=== PATIENT | female | born 1935 | race Two or more races ===

== ENCOUNTER 2016-05-14 07:02 | Observation (INO) | payer BC ==
--- NOTE | 2016-05-14 07:23 | PDOC ---
History of Present Illness - General Chief Complaint: Respiratory Stated Complaint: DIFFICULTY BREATHING Time Seen by Provider: 05/14/16 07:23 History Source: Patient - History of Present Illness Initial Comments: 05/14/16 07:47 80 year old female presented to the ED accompanied by and daughter, with the chief complaints of "trouble breathing-can't take deep breaths" x 3days. Patient mentions it started suddenly, progressively getting worse, difficulty in breathing associated with chest pain 8/10 in intensity, pressure type, worsens with deep inspiration, has back pain as well. Has palpitations on/ off. Complaints of frequent burping+. Denies fever chills, rigors, sweating, cough, abdominal pain, nausea or vomiting. Has h/o constipation, moved her bowel yesterday. Bladder habit normal. Sleep disturbed. Appetite normal. Past Medical Hx: Hypertension, Hypothyroidism, Anxiety Allergies: NKDA Past Surgical Hx: Diagnostic lap with EVA for SBO done in December, Hospitalization: for SBO Social Hx: Lives with (has alzheimers) Never smoked, no alcohol intake, no use of illicit drug use. PCP: Dr. Umaña Past History - Past Medical History Allergies/Adverse Reactions: Allergies Allergy/AdvReac Type Severity Reaction Status Date / Time No Known Allergies Allergy Verified 05/14/16 07:19 Home Medications: Ambulatory Orders Levothyroxine [Synthroid -] 112 mcg PO DAILY 09/12/13 Cholecalciferol (Vitamin D3) [Vitamin D3] 3,000 unit PO DAILY 01/07/16 Escitalopram Oxalate [Lexapro -] 10 mg PO DAILY #0 01/15/16 Losartan Potassium [Cozaar -] 25 mg PO DAILY #0 01/15/16 GI Disorders: Yes (sbo) HTN: Yes Psychiatric Problems: Yes Seizures: Yes Thyroid Disease: Yes (hypo) - Surgical History Abdominal Surgery: Yes (resection s/p sbo) - Immunization History Immunization Up to Date: Yes - Psycho/Social/Smoking Cessation Hx Anxiety: Yes Suicidal Ideation: No Smoking History: Former smoker Have you smoked in the past 12 months: No Information on smoking cessation initiated: No Hx Alcohol Use: No Drug/Substance Use Hx: No Substance Use Type: None *Physical Exam - Vital Signs Last Vital Signs Temp Pulse Resp BP Pulse Ox 97.7 F 72 20 138/93 100 05/14/16 07:20 05/14/16 07:20 05/14/16 07:20 05/14/16 07:20 05/14/16 07:20 05/14/16 08:34 PE: GENERAL: Awake, alert, and fully oriented, in no acute distress HEAD: No signs of trauma EYES: PERRLA, EOMI, sclera anicteric, conjunctiva clear ENT: Auricles normal inspection, hearing grossly normal, nares patent, oropharynx clear without exudates. Moist mucosa NECK: Normal ROM, supple, no lymphadenopathy, JVD, or masses LUNGS: Breath sounds equal, clear to auscultation bilaterally. No wheezes, and no crackles.. HEART: Regular rate and rhythm, normal S1 and S2, no murmurs, rubs or gallops ABDOMEN: Surgical scar gage, Soft, nontender, normoactive bowel sounds. No guarding, no rebound. No masses EXTREMITIES: Normal range of motion, no edema. No clubbing or cyanosis. No erythema, or tenderness NEUROLOGICAL: Cranial nerves II through XII grossly intact. Normal speech, normal gait SKIN: Warm, Dry, normal turgor, no rashes or lesions noted. Heart Score/ECG Review - History History: Moderately suspicious - Electrocardiogram EKG: Non specific repolarization disturbance - Age Age: >/= 65 - Risk Factors Risk Factors Heart Score: Yes Hx Hypertension Based on the list above the patient has:: 1-2 risk factors - Troponin Troponin: </= normal limit - Score Heart Score - Total: 5 ED Treatment Course - LABORATORY CBC & Chemistry Diagram: 05/14/16 08:00 05/14/16 08:00 Medical Decision Making - Medical Decision Making 05/14/16 08:41 80 year old female with significant past medical hx of Hypertension, Hypothyroidism, Anxiety, SBO s/p Lap with EVA comes in with difficulty in breathing and atypical chest pain. Assessment/Plan # Difficulty in breathing/Atypical chest pain Differential diagnosis: Anxiety most likely Less likely ACS however to r/o ordered cardiac enzymes Less likely Pneumonia-no fever, cough or LRTI like symptoms Wells Score-0 PE less likely, however to r/o ordered D-dimer HEART Score-5 Ordered CBC, CMP, UA, Troponins, D-dimer EKG showed T wave abnormality in Anterior leads and lateral leads as compared to old EKG Ordered Echo Aspirin 325mg stat Nitroglycerin patch 05/14/16 09:13 D-dimer negative Renal function normal, CTA ordered to r/o PE and any other acute pathology 05/14/16 11:40 CTA-negative for PE Echo done, report pending. Discussed the case with Dr. Sommer. Spoke with Dr. Akhtar and he accepted the patient to be placed on observation. 05/14/2016 11:45 Atypical chest pain -r/o ACS Patient reassessed. Now comfortably resting, hemodyanmically stable. CTA-No acute pathology. Since patient has T wave abnormalities in Anterior lead and lateral leads pre/post Nitro, will admit the patient on obs in Telemetry with continuous cardiac monitoring. Illness, Investigation and Plan of care explained to the patient. She verbalized understanding. Case seen and discussed with Dr. Ward. *DC/Admit/Observation/Transfer Diagnosis at time of Disposition: EKG abnormalities Chest pain Qualifiers: Chest pain type: unspecified Qualified Code(s): R07.9 - Chest pain, unspecified - Discharge Dispostion Admit: Yes
[2016-05-14 07:28] VITALS: BMI 25.7
[2016-05-14] MEDS ORDERED: ALPRAZolam 0.25 MG TABLET PO ONE (07:49)
[2016-05-14] MEDS ORDERED: ASPIRIN 325 MG ENTERIC COATED TABLET (FP) PO ONE (07:58)
[2016-05-14] MEDS ORDERED: NITROGLYCERIN 2% OINTMENT - 1GM PACKET TD ONE (07:59)
[2016-05-14] MEDS ORDERED: ASPIRIN 325 MG TABLET ONE (08:06)
[2016-05-14 08:44] LABS: BASOPHIL 0.2 % (0-2.0); EOSINOPHIL 0.7 % (0-4.5); MCH 33.2 pg (25.7-33.7); MCHC 34.7 g/dl (32.0-36.0); MEAN CELL VOLUME 95.6 fl (80-96); MEAN PLT VOLUME 8.8 fl (7.5-11.1); NEUTROPHILS 77.8 % (42.8-82.8); PLATELET COUNT 176 K/MM3 (134-434); RDW 12.5 % (11.6-15.6); WHITE BLOOD COUNT 6.3 K/mm3 (4.0-10.0)
[2016-05-14 08:49] LABS: ALBUMIN 3.7 g/dl (3.4-5.0); ALK PHOS 57 U/L (45-117); ANION GAP 10 (8-16); CALCIUM 8.9 mg/dL (8.5-10.1); CO2 28 mmol/L (21-32); CREATININE 0.8 mg/dL (0.55-1.02); GLUCOSE,RANDOM 103 mg/dL (74-106); MAGNESIUM 1.9 mg/dL (1.8-2.4); SGOT/AST 20 U/L (15-37); SGPT/ALT 14 U/L (12-78); TOT PROT 6.6 g/dl (6.4-8.2)
[2016-05-14 08:51] LABS: INR 1.05 (0.82-1.09); PROTHROMBIN TIME (PATIENT) 11.6 SEC (9.98-11.88); TROPONIN I < 0.02 ng/ml (0.00-0.05)
--- NOTE | 2016-05-14 09:57 | PDOC ---
Attending Attestation - Resident Resident Name: Yamilka Bradshaw - ED Attending Attestation I have performed the following: I have examined & evaluated the patient, The case was reviewed & discussed with the resident, I agree w/resident's findings & plan, Exceptions are as noted - HPI HPI: 05/14/16 09:52 80-year-old female with history of hypertension, hypothyroidism presents with dyspnea and pleuritic chest and back pain for the past several days. - Physicial Exam PE: 05/14/16 09:53 Patient is awake and alert, well-appearing, hemodynamically stable. No JVD; Lungs are clear; heart: RRR; abdomen: Soft, nontender, nondistended; distal pulses are +2 bilaterally; - Medical Decision Making 05/14/16 09:56 Patient 80-year-old female with history hypertension and hypothyroidism who presents with dyspnea and atypical chest discomfort with EKG changes. Differential diagnoses includes ACS versus PE versus pleurisy. We'll obtain CBC/ CMP/cardiac profile. We'll obtain chest x-ray and CTA of chest to rule out PE. Will consider 2-D echo. We'll administer aspirin and nitroglycerin. Will consult cardiology. Likely admission. 05/14/16 11:53 Patient reassessed. Patient is resting comfortably, complaining of minimal chest and upper back pain. Vital signs are noted to be stable. First set of cardiac enzymes is within normal limit. CT of chest with IV contrast reveals no evidence of pulmonary embolism or dissection at this time. 2-D echocardiogram reveals mild pulmonary hypertension no significant LV or RV dysfunction. Case discussed with Dr. north of cardiology. Will place in obs for chest pain rule out.
--- NOTE | 2016-05-14 10:04 | EKG ---
Test Reason : Blood Pressure : / mmHG Vent. Rate : 063 BPM Atrial Rate : 063 BPM P-R Int : 136 ms QRS Dur : 080 ms QT Int : 430 ms P-R-T Axes : 048 018 014 degrees QTc Int : 440 ms NORMAL SINUS RHYTHM T WAVE ABNORMALITY, CONSIDER LATERAL ISCHEMIA ABNORMAL ECG WHEN COMPARED WITH ECG OF 06-JAN-2016 22:32, ST NO LONGER DEPRESSED IN ANTERIOR LEADS INVERTED T WAVES HAVE REPLACED NONSPECIFIC T WAVE ABNORMALITY IN LATERAL LEADS Confirmed by BRIAN HEWITT MD ([id number]) on 05/14/2016 10:04:30 AM Referred By: Confirmed By:BRIAN HEWITT MD
[2016-05-14] MEDS ORDERED: ONDANSETRON 4 MG/2 ML VIAL IVPB PRN (12:58)
--- NOTE | 2016-05-14 13:01 | HP ---
Admitting History and Physical - Primary Care Physician PCP: Reyes Villa - Admission Chief Complaint: I am short of breath History of Present Illness: Ms Patterson is a very pleasant 80 year old female who comes in with chest/back pain and shortness of breath. She says she often has to pick her brother up at home, and when she has to do this she gets anxious and upset. The past few times she picked him up she noted "pressure" in her chest and back and shortness of breath. She says that the shortness of breath happens when she takes a deep breath. She inhales and feels pain in her chest and back. Because of the pain she gets short of breath. She does not note pain on movement or palpation of areas. She denies fevers, chills, sick contact, coughing, abdominal pain, nausea, vomiting, diarrhea, constipation, difficulty or pain on urination, or swelling. Currently she is doing well. 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 Cardiovascular: Yes: HTN Endocrine: Yes: Hypothyroidism - Past Surgical History Past Surgical History: Yes: Cataract Removal, Hysterectomy Additional Past Surgical History: Lysis of adhesions - Smoking History Smoking history: Former smoker Have you smoked in the past 12 months: No - Alcohol/Substance Use Hx Alcohol Use: No History of Substance Use: reports: None - Social History Usual Living Arrangement: Yes: Other (with brother) ADL: Independent History of Recent Travel: No Home Medications - Allergies Allergies/Adverse Reactions: Allergies Allergy/AdvReac Type Severity Reaction Status Date / Time No Known Allergies Allergy Verified 05/14/16 07:19 - Home Medications Home Medications: Ambulatory Orders Levothyroxine [Synthroid -] 112 mcg PO DAILY 09/12/13 Cholecalciferol (Vitamin D3) [Vitamin D3] 3,000 unit PO DAILY 01/07/16 Escitalopram Oxalate [Lexapro -] 10 mg PO DAILY #0 01/15/16 Losartan Potassium [Cozaar -] 25 mg PO DAILY #0 01/15/16 Family Disease History - Family Disease History Family Disease History: Other: Brother (dementia) Review of Systems Findings/Remarks: Full review of systems obtained, as per HPI and otherwise negative Physical Examination Vital Signs: Vital Signs Temperature 98.7 F 05/14/16 11:41 Pulse Rate 66 05/14/16 11:41 Respiratory Rate 05/14/16 11:41 Blood Pressure 112/57 05/14/16 11:41 O2 Sat by Pulse Oximetry (%) 95 05/14/16 12:03 Constitutional: Yes: Well Nourished, No Distress, Calm Eyes: Yes: Conjunctiva Clear, EOM Intact HENT: Yes: Atraumatic, Normocephalic Cardiovascular: Yes: Regular Rate and Rhythm. No: Gallop, Murmur, Rub Respiratory: Yes: Regular, CTA Bilaterally. No: Rales, Rhonchi, Wheezes Gastrointestinal: Yes: Normal Bowel Sounds, Soft. No: Distention, Tenderness Musculoskeletal: Yes: Muscle Pain (palpation of chest and back) Extremities: Yes: WNL Edema: No Labs: Laboratory Results - last 24 hr 05/14/16 05/14/16 05/14/16 07:59 08:00 08:00 WBC 6.3 D RBC 3.82 Hgb 12.7 Hct 36.5 MCV 95.6 MCHC 34.7 RDW 12.5 Plt Count 176 D MPV 8.8 Neutrophils % 77.8 D Lymphocytes % 10.1 D Monocytes % 11.2 H Eosinophils % 0.7 Basophils % 0.2 INR 1.05 D-Dimer 199 Sodium Potassium Chloride Carbon Dioxide Anion Gap BUN Creatinine Creat Clearance w eGFR Random Glucose Calcium Magnesium Total Bilirubin AST ALT Alkaline Phosphatase Creatine Kinase Troponin I Total Protein Albumin 05/14/16 08:00 WBC RBC Hgb Hct MCV MCHC RDW Plt Count MPV Neutrophils % Lymphocytes % Monocytes % Eosinophils % Basophils % INR D-Dimer Sodium 138 Potassium 3.7 Chloride 100 Carbon Dioxide 28 Anion Gap 10 BUN 9 D Creatinine 0.8 Creat Clearance w eGFR > 60 Random Glucose 103 Calcium 8.9 Magnesium 1.9 Total Bilirubin 1.0 D AST 20 ALT 14 Alkaline Phosphatase 57 Creatine Kinase 114 Troponin I < 0.02 Total Protein 6.6 Albumin 3.7 Imaging - Results Chest X-ray: Report Reviewed, Image Reviewed Cat Scan: Report Reviewed EKG: Report Reviewed, Image Reviewed Problem List - Problems (1) Chest pain Assessment/Plan: -patient with chest and back pain, reproducible -not true shortness of breath, in response to pain on deep breathing -CT scan PE protocol done and negative -ECHO reviewed -EKG reviewed, changes noted in V5/V6 -case d/w cardiology -admit to telemetry under observation -cardiac enzymes x3 -low suspicion this pain is cardiac in nature -defer to cardiology need for stress test -tylenol for pain control Code(s): R07.9 - CHEST PAIN, UNSPECIFIED Qualifiers: Chest pain type: unspecified Qualified Code(s): R07.9 - Chest pain, unspecified (2) HTN (hypertension) Assessment/Plan: -continue cozaar Code(s): I10 - ESSENTIAL (PRIMARY) HYPERTENSION (3) Hypothyroid Assessment/Plan: -continue synthroid Code(s): E03.9 - HYPOTHYROIDISM, UNSPECIFIED Qualifiers: 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
--- NOTE | 2016-05-14 15:36 | CON.CARD ---
Cardiology Consult (text) - Consultation Consultation Note: CC: cp 80 year old with h/o seizure, HTN, hypothyroidism, SBO s/p surgery who presents with CP. Good functional capacity, no limitation to ambulation. Can walk up flight of stairs without difficulty States recent onset of severe chest pain radiating to her bilateral shoulders. Pain is localized around lateral chest wall (not central or sub sternal). Worse with inspiration or palpation. SOB only in relation to inability to take deep breaths due to pain. She denies orthopnea, pnd, le edema, sob, palps, dizziness, bleeding, claudication or transient neurologic symptoms + anxiety s/p ASA and nitropaste. Has not yet received home losartan dose. She denies fevers, chills, sweats, n/v/d, cough, rash, visual disturbances Past Medical History, per hpi Past Surgical History: cataract surgery Social hx; Former smoker, no etoh or illicits fam hx: no premature cad ros: per hpi Ambulatory Orders Levothyroxine [Synthroid -] 112 mcg PO DAILY 09/12/13 Cholecalciferol (Vitamin D3) [Vitamin D3] 3,000 unit PO DAILY 01/07/16 Escitalopram Oxalate [Lexapro -] 0 mg PO DAILY 01/07/16 Losartan Potassium [Cozaar -] 0 mg PO DAILY 01/07/16 Current Medications Benzocaine/Butamben/Tetracaine HCl (Exactacain Crum -) 1 spray TP TID PRN PRN Reason: SORE THROAT Heparin Sodium (Porcine) (Heparin -) 5,000 unit SQ BID EUGENE Last Admin: 01/08/16 09:23 Dose: 5,000 unit Hydralazine HCl (Apresoline Injection -) 10 mg IM Q8H PRN PRN Reason: HYPERTENSION Hydromorphone HCl (Dilaudid Injection -) 1 mg IVPUSH Q4H PRN PRN Reason: PAIN Last Admin: 01/08/16 08:28 Dose: 1 mg Dextrose/Sodium Chloride (D5-1/2ns+40 Meq Kcl -) 1,000 mls @ 83 mls/hr IV ASDIR EUGENE Last Admin: 01/08/16 08:34 Dose: 83 mls/hr Ondansetron HCl (Zofran Injection) 4 mg IVPB Q6H PRN PRN Reason: NAUSEA Last Admin: 01/07/16 17:24 Dose: 4 mg Vital Signs - 24 hr 01/07/16 01/07/16 01/07/16 15:00 18:39 21:00 Temperature 98.0 F 97.5 F L Pulse Rate 85 66 Respiratory 18 21 21 Rate Blood Pressure 140/62 170/77 O2 Sat by Pulse 100 Oximetry (%) 01/08/16 01/08/16 01/08/16 05:53 09:00 13:50 Temperature 98.0 F 98.0 F 97.8 F Pulse Rate 67 86 61 Respiratory 20 20 17 Rate Blood Pressure 156/85 145/80 O2 Sat by Pulse 100 Oximetry (%) Intake & Output 01/06/16 01/07/16 01/08/16 01/09/16 07:59 07:59 07:59 07:59 Intake Total 1166 0 Output Total 200 Balance 966 0 Weight 140 lb NAD, calm JVD flat, neck supple ctab, nl effort RRR nl s1, s2 no m/r/g pain reproducible to palpation of lateral chest wall bilaterally. + bs soft nt nd ext without e/c/c + dp/pt aaox3 no jaundice, diaphoresis CBC, BMP 05/14/16 08:00 05/14/16 08:00 Laboratory Tests 05/14/16 08:00 Troponin I < 0.02 Albumin 3.7 EKG: NSR, TWI in inferolat leads. Although T wave abnormalities are more prominent in comparison to prior EKG. They were present on EKG's in the past including office EKG's. Variability likely related to lead placement. tele: nsr echo: nl lv/rv. 1+ AR/MR/TR. RVSP 30-40. CTA: no pe, nl aorta. hilar lymphoid hyperplasia, mild bibasilar atelectasis, minimal pleural thickening echo 2011: nl lv/rv/valves stress MPI 2011: 6.4 METS, non-diagnostic EKG changes. Nl perfusion, NL EF. 80 year old with h/o seizure, HTN, hypothyroidism, SBO s/p surgery who presents with CP. CP - atypical for cardiac etilology, more consistent with msk etiology. EKG similar to priors (see above discussion), trop neg x 1. con't LATASHA - pain mgm't per pmd. - mgm't of HTN. - echo unremarkable. - can repeat tsh. - If troponins remain negative, can have further evaluation for need for stress test as outpatient. HTN - resume losartan. monitor for need for uptitration of anti-hypertensive regimen. anxiety - per pmd.
[2016-05-14] MEDS: LOSARTAN POTASSIUM 25 MG TABLET PO SCH (16:32)
[2016-05-14 18:32] LABS: TROPONIN I < 0.02 ng/ml (0.00-0.05)
[2016-05-14] MEDS: ACETAMINOPHEN 325 MG TABLET (FP) PO PRN ×2 (18:43→22:20)
[2016-05-15] MEDS ORDERED: LEVOTHYROXINE NA 112 MCG TABLET (FP) PO SCH (07:00)
[2016-05-15 08:15] LABS: BASOPHIL 0.2 % (0-2.0); EOSINOPHIL 0.4 % (0-4.5); MCH 33.2 pg (25.7-33.7); MCHC 34.8 g/dl (32.0-36.0); MEAN CELL VOLUME 95.2 fl (80-96); MEAN PLT VOLUME 8.9 fl (7.5-11.1); PLATELET COUNT 162 K/MM3 (134-434); RDW 12.9 % (11.6-15.6); WHITE BLOOD COUNT 7.8 K/mm3 (4.0-10.0)
[2016-05-15 08:37] LABS: CALCIUM 8.7 mg/dL (8.5-10.1); CREATININE 0.7 mg/dL (0.55-1.02); PHOSPHOROUS 3.1 mg/dL (2.5-4.9)
[2016-05-15 08:49] LABS: THYROID STIMULATING HORMONE 5.72 uIU/ml (0.358-3.74); TROPONIN I < 0.02 ng/ml (0.00-0.05)
[2016-05-15 09:07] VITALS: BP 127/61; PULSE 69; TEMP 98.3
[2016-05-15] MEDS ORDERED: ESCITALOPRAM OXALATE 10 MG TABLET (FP) PO SCH (10:00)
[2016-05-15] MEDS ORDERED: CHOLECALCIFEROL (VITAMIN D3) 1,000 UNIT TABLET (FP) PO SCH (10:00)
[2016-05-15] MEDS: LOSARTAN POTASSIUM 25 MG TABLET PO SCH (10:31)
--- NOTE | 2016-05-15 11:09 | PN ---
Progress Note (short form) - Note Progress Note: s: no sob palps dizzy; still with same msk chest pain o: Vital Signs Period Temp Pulse Resp BP Sys/Swanson Pulse Ox Last 24 Hr 97.6 F-98.7 F 62-81 16-20 97-149/50-95 95-97 NAD, calm JVD flat, neck supple ctab, nl effort RRR nl s1, s2 no m/r/g pain reproducible to palpation of lateral chest wall bilaterally. + bs soft nt nd ext without e/c/c aaox3 no jaundice, diaphoresis Current Medications Generic Name Dose Route Start Last Admin Trade Name Freq PRN Reason Stop Dose Admin Acetaminophen 650 mg 05/14/16 12:58 05/14/16 22:20 Tylenol - PO 650 mg Q4H PRN Administration FEVER OR PAIN Cholecalciferol 3,000 unit 05/15/16 10:00 05/15/16 10:31 Vitamin D3 - PO 3,000 unit DAILY EUGENE Administration Escitalopram Oxalate 10 mg 05/15/16 10:00 05/15/16 10:31 Lexapro - PO 10 mg DAILY EUGENE Administration Levothyroxine Sodium 112 mcg 05/15/16 07:00 05/15/16 06:32 Synthroid - PO 112 mcg DAILY@0700 EUGENE Administration Losartan Potassium 25 mg 05/15/16 10:00 05/15/16 10:31 Cozaar - PO 25 mg DAILY EUGENE Administration CBC, BMP 05/15/16 05:45 05/15/16 05:45 EKG: NSR, TWI in inferolat leads. Although T wave abnormalities are more prominent in comparison to prior EKG. They were present on EKG's in the past including office EKG's. Variability likely related to lead placement. tele: sr, artifact echo: nl lv/rv. 1+ AR/MR/TR. RVSP 30-40. CTA: no pe, nl aorta. hilar lymphoid hyperplasia, mild bibasilar atelectasis, minimal pleural thickening echo 2011: nl lv/rv/valves stress MPI 2011: 6.4 METS, non-diagnostic EKG changes. Nl perfusion, NL EF. a/p: 80 year old with h/o seizure, HTN, hypothyroidism, SBO s/p surgery who presents with CP. CP - atypical for cardiac etilology, more consistent with msk etiology. EKG similar to priors (see above discussion), trop neg x 2 - pain mgm't per pmd. - echo unremarkable. HTN - cont current meds anxiety - per pmd cardiac root stable for dc
[2016-05-15] MEDS ORDERED: IBUPROFEN 400 MG TABLET (FP) PO ONE (11:22)
--- NOTE | 2016-05-15 11:42 | DS ---
Physical Examination Vital Signs: Vital Signs Temperature 98.3 F 05/15/16 09:06 Pulse Rate 69 05/15/16 09:06 Respiratory Rate 20 05/15/16 09:06 Blood Pressure 127/61 05/15/16 09:06 O2 Sat by Pulse Oximetry (%) 97 05/14/16 20:48 Constitutional: Yes: Well Nourished, Mild Distress (due to neck/ rib pain) Neck: Yes: Supple, Trachea Midline Cardiovascular: Yes: Regular Rate and Rhythm, S1, S2. No: Murmur Respiratory: Yes: Regular, CTA Bilaterally Gastrointestinal: Yes: Normal Bowel Sounds, Soft. No: Distention, Tenderness Edema: No Labs: CBC, BMP 05/15/16 05:45 05/15/16 05:45 Discharge Summary Reason For Visit: CHEST PAIN Current Active Problems Chest pain (Acute) EKG abnormalities (Acute) Hospital Course: 80 yo female presented with chest pain. Pain found to be pleuritic. CTA chest done, negative for PE. CE neg x 3, seen by cardio and pain felt to be musculoskeletal (has been lifting her at home, who suffers from dementia ). Has been taking tylenol for pain, with minimal improvement. No fevers noted. Will be discharged on Aleve for 4 days and advised to use warm compresses for pain. Condition: Fair - Instructions Referrals: Reyes Villa MD [Primary Care Provider] - Disposition: HOME - Home Medications Comprehensive Discharge Medication List: Ambulatory Orders Levothyroxine [Synthroid -] 112 mcg PO DAILY 09/12/13 Cholecalciferol (Vitamin D3) [Vitamin D3] 3,000 unit PO DAILY 01/07/16 Escitalopram Oxalate [Lexapro -] 10 mg PO DAILY #0 01/15/16 Losartan Potassium [Cozaar -] 25 mg PO DAILY #0 01/15/16 Acetaminophen [Tylenol .Regular Strength -] 650 mg PO Q4H PRN #0 tablet Naproxen Sodium [Aleve] 220 mg PO BID #60 tablet 05/15/16
--- NOTE | 2016-05-15 13:42 | EKG ---
Test Reason : Blood Pressure : / mmHG Vent. Rate : 060 BPM Atrial Rate : 060 BPM P-R Int : 136 ms QRS Dur : 084 ms QT Int : 432 ms P-R-T Axes : 046 016 007 degrees QTc Int : 432 ms NORMAL SINUS RHYTHM T WAVE ABNORMALITY, CONSIDER LATERAL ISCHEMIA ABNORMAL ECG WHEN COMPARED WITH ECG OF 14-MAY-2016 07:45, NO SIGNIFICANT CHANGE WAS FOUND Confirmed by TASIA TYSON MD ([id number]) on 05/15/2016 1:42:21 PM Referred By: Confirmed By:TASIA TYSON MD
== END 2016-05-15 14:49 | disposition home or self-care (01) ==
LOC: JER 07:02 → JERBED 11:56 → J4W 15:09
PROVIDERS: ADMIT Internal Medicine; ATTEND Internal Medicine
DX: R07.89 Other chest pain (principal); I10 Essential (primary) hypertension; E03.9 Hypothyroidism, unspecified; F41.9 Anxiety disorder, unspecified; Z87.891 Personal history of nicotine dependence; F41.8 Other specified anxiety disorders; R56.9 Unspecified convulsions
CPT/HCPCS: 36415; 71010-TC; 71260-TC; 80048; 80053; 82550; 83735; 84100; 84443; 84484; 85025; 85379; 85610; 93005; 93010; 93306-TC; 99285-25; G0378

== ENCOUNTER 2018-11-23 12:39 | Inpatient (IN) | payer BC ==
[2018-11-23 12:54] VITALS: BMI 27.3
[2018-11-23] MEDS ORDERED: PIPERACILLIN/TAZOB 3.375 GM 3.375 GM in DEXTROSE 5%-WATER - 50 ML IVPB ONE (14:14)
--- NOTE | 2018-11-23 14:15 | PDOC ---
Documentation entered by Cheryl Gavin SCRIBE, acting as scribe for Zoë Cade MD. Zoë Cade MD: This documentation has been prepared by the Leslye carter Xhesika, SCRIBE, under my direction and personally reviewed by me in its entirety. I confirm that the documentation accurately reflects all work, treatment, procedures, and medical decision making performed by me. Attending Attestation - Resident Resident Name: Irving Pride - ED Attending Attestation I have performed the following: I have examined & evaluated the patient, The case was reviewed & discussed with the resident, Exceptions are as noted - HPI HPI: 11/23/18 14:10 83 yo F wtih h/o HTN dementia, here s/p fall today. unwitnessed. was found on floor by her grandaughter. pt states she was walking to bathroom and fell on floor. is unsure of exact details precipitating the fall , states she may have hit her head but unsure. was last seen by family night prior. no focal weakness. no cp no sob. pt daughter at bedside states she has an ornary cat and has had mutliple scratches to her right hand. today after fall noticed her hand is red, swelling and erythematous. extremely tender to touch. no f/c redness isfrom hand to elbow. / mid forearm with some streaking. - Physicial Exam PE: 11/23/18 14:12 awake alert lungs clear bilat heart rrr no mrg abd soft nt nd ext wwp. right upper extremity arm/ hand erythematous, warm, pain with rom right index finger. and thumb. decreased wrist flex/ ext secondary to pain. erythema to mid forearm , elbow / shoulder FROM NT 2 + radial ulnar pulses bilat. n/v intact. smal puncate abrasions over dorsum right mcp. some purulence expressed. - Medical Decision Making 11/23/18 14:13 83 yo F s/p unwitness fall/ syncope. possible head trauma, and signs of right hand cellulitis likely from cat scratch, possible underlying abscess. plan iv fliuds, labs cultures lactate, pt will require imaging to r/o underlying fracture. plan vanco zosyn, hand consult will soak hand. imaging. ct head. 08/29/19 17:23 d/w covering dr for Dr ignacio while in surgery, will see pt as a consult in hospital. given abx, soaks, admitted to medicine. Heart Score/ECG Review #1 ECG reviewed & interpreted by me at: 14:50 General ECG Interpretation: Sinus Rhythm, Normal Rate, Normal Intervals, No acute ischemic changes (TWI V4 - V6, I, AVL.) Compared to previous ECG there are: Changes noted (comparison 05/14)
--- NOTE | 2018-11-23 14:16 | PDOC ---
History of Present Illness <Zoë Cade - Last Filed: 11/23/18 16:33> - History of Present Illness Initial Comments: 11/23/18 15:33 83F with pmh of seizure, HTN, hypothyroidism, SBO presents to the ED with painful, swollen red Right red hand since this morning, possibly. She states that she fell in her bathroom this morning, possibly hitting her head in the process. Her right hand and forearm are covered in cat bites and scratches <Irving Pride - Last Filed: 11/23/18 17:21> - General Chief Complaint: Injury Stated Complaint: FALL Time Seen by Provider: 11/23/18 13:15 Past History <Zoë Cade - Last Filed: 11/23/18 16:33> - Past Medical History COPD: No GI Disorders: Yes (sbo) HTN: Yes Psychiatric Problems: Yes Seizures: Yes Thyroid Disease: Yes (hypo) - Surgical History Abdominal Surgery: Yes (resection s/p sbo) - Immunization History Immunization Up to Date: Yes - Suicide/Smoking/Psychosocial Hx Smoking History: Never smoked Have you smoked in the past 12 months: No Hx Alcohol Use: No Drug/Substance Use Hx: No Substance Use Type: None <ShannenIrving - Last Filed: 11/23/18 17:21> - Past Medical History Allergies/Adverse Reactions: Allergies Allergy/AdvReac Type Severity Reaction Status Date / Time No Known Allergies Allergy Verified 11/23/18 12:51 Home Medications: Ambulatory Orders Levothyroxine [Synthroid -] 112 mcg PO DAILY 09/12/13 Cholecalciferol (Vitamin D3) [Vitamin D3] 3,000 unit PO DAILY 01/07/16 Escitalopram Oxalate [Lexapro -] 10 mg PO DAILY #0 01/15/16 Losartan Potassium [Cozaar -] 25 mg PO DAILY #0 01/15/16 Acetaminophen [Tylenol .Regular Strength -] 650 mg PO Q4H PRN #0 tablet Naproxen Sodium [Aleve] 220 mg PO BID #60 tablet 05/15/16 Review of Systems - Review of Systems Able to Perform ROS?: Yes Is the patient limited Ukrainian proficient: No Constitutional: No: Symptoms Reported HEENTM: No: Symptoms Reported Respiratory: No: Symptoms reported Cardiac (ROS): No: Symptoms Reported ABD/GI: No: Symptoms Reported : No: Symptoms Reported Musculoskeletal: Yes: See HPI Integumentary: No: Symptoms Reported All Other Systems: Reviewed and Negative <Irving Pride - Last Filed: 11/23/18 17:21> *Physical Exam - Vital Signs Last Vital Signs Temp Pulse Resp BP Pulse Ox 97.9 F 87 17 125/63 97 11/23/18 12:51 11/23/18 12:51 11/23/18 12:51 11/23/18 12:51 11/23/18 15:43 <BrandtnitoZoë - Last Filed: 11/23/18 16:33> - Vital Signs Last Vital Signs Temp Pulse Resp BP Pulse Ox 97.9 F 87 17 125/63 99 11/23/18 12:51 11/23/18 12:51 11/23/18 12:51 11/23/18 12:51 11/23/18 12:51 - Physical Exam General Appearance: Yes: Nourished, Appropriately Dressed. No: Apparent Distress HEENT: positive: EOMI, IGNACIO Respiratory/Chest: positive: Lungs Clear, Normal Breath Sounds. negative: Chest Tender, Respiratory Distress Cardiovascular: positive: Regular Rhythm, Regular Rate, S1, S2 Gastrointestinal/Abdominal: positive: Normal Bowel Sounds, Flat, Soft. negative : Tender Musculoskeletal: positive: Normal Inspection. negative: CVA Tenderness Extremity: positive: Normal Inspection Integumentary: positive: Other (Right arm and hand hot, erythematous and tender , limited ROM. Right dorsal hand skin is tense. ) Neurologic: positive: Fully Oriented, Alert, Normal Mood/Affect, Normal Response , Motor Strength 5/5 <Irving Pride - Last Filed: 11/23/18 17:21> ED Treatment Course - LABORATORY CBC & Chemistry Diagram: 11/23/18 14:40 11/23/18 14:40 - ADDITIONAL ORDERS Additional order review: Laboratory Results 11/23/18 11/23/18 11/23/18 15:52 14:40 14:40 PT with INR 12.20 INR 1.03 PTT (Actin FS) 26.4 Sodium Potassium Chloride Carbon Dioxide Anion Gap BUN Creatinine Est GFR (CKD-EPI)AfAm Est GFR (CKD-EPI)NonAf Random Glucose Lactic Acid 1.2 Calcium Total Bilirubin AST ALT Alkaline Phosphatase Troponin I Total Protein Albumin Urine Color Yellow Urine Appearance Clear Urine pH 5.5 Ur Specific [place] 1.023 Urine Protein Negative Urine Glucose (UA) Negative Urine Ketones Trace H Urine Blood Negative Urine Nitrite Negative Urine Bilirubin Negative Urine Urobilinogen 0.2 Ur Leukocyte Esterase 1+ H Urine WBC (Auto) 2 Urine RBC (Auto) 3 Urine Casts (Auto) 2 U Epithel Cells (Auto) 4.4 Urine Bacteria (Auto) 15.2 11/23/18 14:40 PT with INR INR PTT (Actin FS) Sodium 138 Potassium 4.0 Chloride 100 Carbon Dioxide 28 Anion Gap 10 BUN 21.1 H Creatinine 1.1 Est GFR (CKD-EPI)AfAm 54.15 Est GFR (CKD-EPI)NonAf 46.72 Random Glucose 122 H Lactic Acid Calcium 9.5 Total Bilirubin 1.0 AST 20 ALT 14 Alkaline Phosphatase 67 Troponin I < 0.02 Total Protein 6.8 Albumin 3.6 Urine Color Urine Appearance Urine pH Ur Specific [place] Urine Protein Urine Glucose (UA) Urine Ketones Urine Blood Urine Nitrite Urine Bilirubin Urine Urobilinogen Ur Leukocyte Esterase Urine WBC (Auto) Urine RBC (Auto) Urine Casts (Auto) U Epithel Cells (Auto) Urine Bacteria (Auto) 11/23/18 14:40 RBC 3.79 MCV 96.6 H MCHC 34.0 RDW 12.7 MPV 9.5 Neutrophils % 90.7 H Lymphocytes % 2.8 L D Monocytes % 6.4 Eosinophils % 0.0 D Basophils % 0.1 - Medications Given in the ED: ED Medications Discontinued Medications Generic Name Dose Route Start Last Admin Trade Name Freq PRN Reason Stop Dose Admin Piperacillin Sod/Tazobactam 50 mls @ 100 mls/hr 11/23/18 14:14 11/23/18 15:00 Sod 3.375 gm/ Dextrose IVPB 11/23/18 14:43 100 mls/hr ONCE ONE Administration Protocol <Zoë Cade - Last Filed: 11/23/18 16:33> - LABORATORY CBC & Chemistry Diagram: 11/23/18 14:40 11/23/18 14:40 - RADIOLOGY Radiology Studies Ordered: Category Date Time Status CERVICAL SPINE CT W/O CONTR [CT] Stat CT Scan 11/23/18 14:[address] WITHOUT CONTRAST [CT] Stat CT Scan 11/23/18 14:01 Ordered FOREARM- RIGHT [RAD] Stat Radiology 11/23/18 14:00 Ordered WRIST W/HAND-RIGHT* [RAD] Stat Radiology 11/23/18 14:01 Ordered <Irving Pride - Last Filed: 11/23/18 17:21> Medical Decision Making - Medical Decision Making 11/23/18 15:55 83 with cat scratch and bites and erythematous skin over the right arm with draining pus from the dorsal puncture wound. Starting antibiotics and xray. Dr. Vega will be consulted for it. 11/23/18 16:53 Admission pending. 11/23/18 17:19 All Xrays of the arm are negative for fractures, + vascular calcifications. Ct head and cervical neck negative for fractures or bleed. Patient admitted to Med/surg. <Irving Pride - Last Filed: 11/23/18 17:21> *DC/Admit/Observation/Transfer - Discharge Dispostion Decision to Admit order: Yes <Zoë Cade - Last Filed: 11/23/18 16:33> <Irving Pride - Last Filed: 11/23/18 17:21> Diagnosis at time of Disposition: Animal bite, Cellulitis of hand, right
[2018-11-23 15:08] LABS: BASO % 0.1 % (0-2.0); HEMATOCRIT 36.6 % (32.4-45.2); HEMOGLOBIN 12.4 GM/dL (10.7-15.3); LYMPH % 2.8 % (8-40); MCH 32.8 pg (25.7-33.7); MEAN CELL VOLUME 96.6 fl (80-96); MEAN PLT VOLUME 9.5 fl (7.5-11.1); MONO % 6.4 % (3.8-10.2); NEUT % 90.7 % (42.8-82.8); PLATELET COUNT 191 K/MM3 (134-434); RBC 3.79 M/mm3 (3.60-5.2); RDW 12.7 % (11.6-15.6); WHITE BLOOD COUNT 20.4 K/mm3 (4.0-10.0)
[2018-11-23 15:22] LABS: INR 1.03 (0.83-1.09); PROTHROMBIN TIME (PATIENT) 12.2 SEC (9.7-13.0)
[2018-11-23 15:25] LABS: ACTIVATED PTT 26.4 SECONDS (25.2-36.5)
--- NOTE | 2018-11-23 15:28 | EKG ---
Test Reason : Blood Pressure : / mmHG Vent. Rate : 074 BPM Atrial Rate : 074 BPM P-R Int : 130 ms QRS Dur : 080 ms QT Int : 398 ms P-R-T Axes : 042 -02 218 degrees QTc Int : 441 ms NORMAL SINUS RHYTHM ABNORMAL ECG WHEN COMPARED WITH ECG OF 14-MAY-2016 11:06, NON-SPECIFIC CHANGE IN ST SEGMENT IN INFERIOR LEADS NON-SPECIFIC CHANGE IN ST SEGMENT IN ANTERIOR LEADS T WAVE INVERSION MORE EVIDENT IN ANTEROLATERAL LEADS Confirmed by ROBERT CORTES MD ([id number]) on 11/23/2018 3:27:40 PM Referred By: Confirmed By:ROBERT CORTES MD
[2018-11-23 15:40] LABS: ALBUMIN 3.6 g/dl (3.4-5.0); ALK PHOS 67 U/L (45-117); ANION GAP 10 MMOL/L (8-16); BLOOD UREA NITROGEN 21.1 mg/dL (7-18); CALCIUM 9.5 mg/dL (8.5-10.1); CHLORIDE 100 mmol/L (98-107); CO2 28 mmol/L (21-32); CREATININE 1.1 mg/dL (0.55-1.3); GLUCOSE,RANDOM 122 mg/dL (74-106); SGOT/AST 20 U/L (15-37); SGPT/ALT 14 U/L (13-61); SODIUM 138 mmol/L (136-145); TOT PROT 6.8 g/dl (6.4-8.2)
[2018-11-23 16:29] LABS: EPI CELLS 4.4 /HPF (0-5/HPF); HYALINE CASTS 2 /lpf (0-8); PH,URINE 5.5 (5.0-8.0); URINE APPEARANCE CLEAR; URINE BACTERIA 15.2 /hpf (NEGATIVE); URINE BILIRUBIN NEGATIVE (NEGATIVE); URINE COLOR YELLOW; URINE GLUCOSE (UA) NEGATIVE (NEGATIVE); URINE KETONE TRACE (NEGATIVE); URINE LEUK ESTERASE 1+ (NEGATIVE); URINE NITRITE NEGATIVE (NEGATIVE); URINE PROTEIN NEGATIVE (NEGATIVE); URINE RBC 3 /hpf (0-4); URINE UROBILINOGEN 0.2 mg/dL (0.2-1.0); URINE WBC 2 /hpf (0-5)
[2018-11-23 17:08] LABS: ANISOCYTOSIS 1+; MACROCYTOSIS 1+; PLATELET ESTIMATE NORMAL
[2018-11-23] MEDS ORDERED: VANCOMYCIN 1 GM in D5W (PRE-DOCKED) 1,000 MG/250 ML IVPB ONE (17:18)
[2018-11-23] MEDS ORDERED: DIPHTH,PERTUSS(ACELL),TET 0.5 ML DISP.SYRIN IM ONE ×2 (17:23→17:33)
[2018-11-23] MEDS ORDERED: VANCOMYCIN 1 GRAM (PRE-DOCKED) 1,000 MG/250 ML BAG IVPB ONE ×2 (17:30→17:31)
[2018-11-23] MEDS ORDERED: SODIUM CHLORIDE 1,000 ML IV SCH (18:00)
--- NOTE | 2018-11-23 18:24 | HP ---
CHIEF COMPLAINT: right hand pain and fall PCP: [facility] HISTORY OF PRESENT ILLNESS: Ms. Patterson is an 83 yo female with PMH of seizure, CVA, HTN, and hypothyroidism who presents with right hand pain after being found on the bathroom floor by a family member about 9:00am this morning. She does not recall what happened leading to being found. Per daughter she has been acting normally the last several days. Pt also reports right hand and forearm pain and redness x 2-3 days. She has a cat at home. Pt denies fever, chills, or nausea. Source: patient at bedside, daughter by phone ER course was notable for: (1) ST depression on EKG increased from 2017 (2) head and c-spine CT negative (3) hand and forearm xrays negative for acute fx (4) WBC 20.4, afebrile PAST MEDICAL HISTORY: seizure HTN hypothyroidism PAST SURGICAL HISTORY: SBO s/p resection 2015 Social History: Smoking: denies Alcohol: denies Drugs: denies Family History: will obtain Allergies No Known Allergies Allergy (Verified 11/23/18 12:51) HOME MEDICATIONS: Home Medications Medication Instructions Recorded Levothyroxine [Synthroid -] 112 mcg PO DAILY 09/12/13 Cholecalciferol (Vitamin D3) 3,000 unit PO DAILY 01/07/16 [Vitamin D3] Escitalopram Oxalate [Lexapro -] 10 mg PO DAILY #0 01/15/16 Losartan Potassium [Cozaar -] 25 mg PO DAILY #0 01/15/16 Acetaminophen [Tylenol .Regular 650 mg PO Q4H PRN #0 tablet 05/15/16 Strength -] Naproxen Sodium [Aleve] 220 mg PO BID #60 tablet 05/15/16 REVIEW OF SYSTEMS CONSTITUTIONAL: Absent: fever, chills CARDIOVASCULAR: Absent: chest pain RESPIRATORY: Absent: shortness of breath GASTROINTESTINAL: Absent: abdominal pain, nausea, vomiting, diarrhea GENITOURINARY: Absent: dysuria MUSCULOSKELETAL: Present: hand pain, arm pain, joint swelling SKIN: Present: erythema NEUROLOGIC: Absent: dizziness PHYSICAL EXAMINATION Vital Signs - 24 hr 11/23/18 11/23/18 11/23/18 12:51 15:43 17:57 Temperature 97.9 F 98.6 F Pulse Rate 87 Pulse Rate [ 79 Left Radial] Respiratory 17 Rate Blood Pressure 125/63 Blood Pressure 126/55 L [Left Arm] O2 Sat by Pulse 99 97 98 Oximetry (%) GENERAL: Awake, alert, and oriented to person and place, in no acute distress. HEAD: Normal with no signs of trauma. EYES: Pupils equal, round and reactive to light, extraocular movements intact, sclera anicteric, conjunctiva clear. No lid lag. EARS, NOSE, THROAT: Ears normal, nares patent, oist mucous membranes. NECK: Normal range of motion LUNGS: Breath sounds equal, clear to auscultation bilaterally. No wheezes, and no crackles. No accessory muscle use. HEART: Regular rate and rhythm, normal S1 and S2 without murmur ABDOMEN: Soft, nontender, not distended, normoactive bowel sounds, MUSCULOSKELETAL: Reduced ROM of right wrist in flexion and extension UPPER EXTREMITIES: 2+ pulses, warm, well-perfused. No cyanosis. No clubbing. LOWER EXTREMITIES: 2+ pulses, warm, well-perfused. No peripheral edema. NEUROLOGICAL: Cranial nerves II-XII intact. Normal speech. PSYCHIATRIC: Cooperative. Good eye contact. Appropriate mood and affect. SKIN: Diffuse erythema of right hand ascending to just above elbow. No obvious streaking. Warm to touch. Puncture wound on dorsal surface of hand between 1st and 2nd metacarpal without discharge. Minimal abrasions on posterior forearm. Laboratory Results - last 24 hr 11/23/18 11/23/18 11/23/18 14:40 14:40 14:40 WBC 20.4 H RBC 3.79 Hgb 12.4 Hct 36.6 MCV 96.6 H MCH 32.8 MCHC 34.0 RDW 12.7 Plt Count 191 MPV 9.5 Absolute Neuts (auto) 18.5 H Neutrophils % 90.7 H Neutrophils % (Manual) 92.0 H Band Neutrophils % 3.0 Lymphocytes % 2.8 L D Lymphocytes % (Manual) 3.0 L Monocytes % 6.4 Monocytes % (Manual) 2 L Eosinophils % 0.0 D Basophils % 0.1 Nucleated RBC % 0 Hypochromia 1+ Platelet Estimate Normal Anisocytosis 1+ Macrocytosis 1+ PT with INR 12.20 INR 1.03 PTT (Actin FS) 26.4 Sodium 138 Potassium 4.0 Chloride 100 Carbon Dioxide 28 Anion Gap 10 BUN 21.1 H Creatinine 1.1 Est GFR (CKD-EPI)AfAm 54.15 Est GFR (CKD-EPI)NonAf 46.72 Random Glucose 122 H Lactic Acid Calcium 9.5 Total Bilirubin 1.0 AST 20 ALT 14 Alkaline Phosphatase 67 Troponin I < 0.02 Total Protein 6.8 Albumin 3.6 Urine Color Urine Appearance Urine pH Ur Specific [place] Urine Protein Urine Glucose (UA) Urine Ketones Urine Blood Urine Nitrite Urine Bilirubin Urine Urobilinogen Ur Leukocyte Esterase Urine WBC (Auto) Urine RBC (Auto) Urine Casts (Auto) U Epithel Cells (Auto) Urine Bacteria (Auto) 11/23/18 11/23/18 14:40 15:52 WBC RBC Hgb Hct MCV MCH MCHC RDW Plt Count MPV Absolute Neuts (auto) Neutrophils % Neutrophils % (Manual) Band Neutrophils % Lymphocytes % Lymphocytes % (Manual) Monocytes % Monocytes % (Manual) Eosinophils % Basophils % Nucleated RBC % Hypochromia Platelet Estimate Anisocytosis Macrocytosis PT with INR INR PTT (Actin FS) Sodium Potassium Chloride Carbon Dioxide Anion Gap BUN Creatinine Est GFR (CKD-EPI)AfAm Est GFR (CKD-EPI)NonAf Random Glucose Lactic Acid 1.2 Calcium Total Bilirubin AST ALT Alkaline Phosphatase Troponin I Total Protein Albumin Urine Color Yellow Urine Appearance Clear Urine pH 5.5 Ur Specific [place] 1.023 Urine Protein Negative Urine Glucose (UA) Negative Urine Ketones Trace H Urine Blood Negative Urine Nitrite Negative Urine Bilirubin Negative Urine Urobilinogen 0.2 Ur Leukocyte Esterase 1+ H Urine WBC (Auto) 2 Urine RBC (Auto) 3 Urine Casts (Auto) 2 U Epithel Cells (Auto) 4.4 Urine Bacteria (Auto) 15.2 ASSESSMENT/PLAN: Ms. Patterson is an 83yo female with hx of seizures, CVA, HTN, and hypothyroidism who presents following possible syncopal episode and right hand/arm erythema and swelling. #cellulitis of right hand and arm RUE erythema and swelling. WBC 20.4. Afebrile. Hemodynamically stable. Hand and forearm x-rays negative for acute fracture. Puncture wound and abrasions consistent with cat bite and/or scratches. -Tetanus vaccine updated in ED -Zosyn IV -CBC -Dr. Watson ID consulted -Dr. Vega surgery consulted #possible syncope Pt cannot recall if she lost consciousness. She also endorses memory loss. Will r/o causes of syncope. CT head negative for acute processes, positive for chronic left basal ganglia infarct, and c-spine negative for fractures. EKG showed ~1mm change in ST depression of V4-V6. UA +1 leuk esterase. -carotid doppler -echo -tele monitoring -seizure and fall precautions -lipid panel -CMP -urine cx pending -ASA -Dr. Pascual cards consulted and will evaluate pt in morning #ST depression changes in EKG ~1mm change in ST depression of V4-V6 compared to 04/2016. trops x2 negative. -trop x 3 total, if negative -echo -cards consulted #CVA chronic left basal ganglia infarct on head CT -stable #HTN normotensive -continue home losartan #hypothyroidism -continue home Synthroid #dementia FEN NS 75mL/hr monitor lytes, BUN 21.1 NPO DVT Ppe hold heparin until tomorrow late in anticipation of required procedure Visit type - Emergency Visit Emergency Visit: Yes ED Registration Date: 11/23/18 Care time: The patient presented to the Emergency Department on the above date and was hospitalized for further evaluation of their emergent condition. - New Patient This patient is new to me today: Yes Date on this admission: 11/23/18 - Critical Care Critical Care patient: No ATTENDING PHYSICIAN STATEMENT I saw and evaluated the patient. I reviewed the resident's note and discussed the case with the resident. I agree with the resident's findings and plan as documented. SUBJECTIVE: OBJECTIVE: ASSESSMENT AND PLAN:
--- NOTE | 2018-11-23 19:06 | CONSULT ---
Consult Consult Specialty:: Hand and Microsurgery Reason for Consultation:: cellulitis right arm - History of Present Illness Chief Complaint: right hand and forearm swelling History of Present Illness: 83 yo RHD female with PMH of seizure, CVA, HTN, and hypothyroidism who presents with right hand pain after being found on the bathroom floor by a family member about 9:00am this morning. She does not recall what happened leading to being found. Per daughter she has been acting normally the last several days. Pt also reports right hand and forearm pain and redness x 2-3 days. She has a cat at home. Pt denies fever, chills, or nausea. 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 Cardio/Vascular: Yes: HTN Endocrine: Yes: Hypothyroidism - Past Surgical History Past Surgical History: Yes: Cataract Removal, Hysterectomy - Alcohol/Substance Use Hx Alcohol Use: No History of Substance Use: reports: None - Smoking History Smoking history: Never smoked Have you smoked in the past 12 months: No - Social History Usual Living Arrangement: With Spouse (with her disabled ) History of Recent Travel: No Home Medications - Allergies Allergies/Adverse Reactions: Allergies Allergy/AdvReac Type Severity Reaction Status Date / Time No Known Allergies Allergy Verified 11/23/18 12:51 - Home Medications Home Medications: Ambulatory Orders Losartan/Hydrochlorothiazide [Hyzaar 100-12.5 Tablet] 1 each PO DAILY 11/23/18 Donepezil HCl 5 mg PO ACHS 11/24/18 Escitalopram Oxalate [Lexapro -] 20 tab PO DAILY 11/24/18 Amoxicillin/Potassium Clav [Augmentin 875-125 Tablet] 1 each PO BID 10 Days #20 tablet 11/27/18 Aspirin 81 mg PO DAILY 30 Days #30 tab.chew 11/27/18 Lactobacillus Acidophilus [Bacid -] 1 each PO BID 10 Days #20 capsule 11/27/18 Family Disease History - Family Disease History Family Disease History: Other: Brother (dementia) Review of Systems - Review of Systems Constitutional: denies: Chills, Fever Eyes: denies: Blind Spots, Recent Change in Vision HENT: denies: Difficult Swallowing, Throat Pain Cardiovascular: denies: Chest Pain, Palpitations Respiratory: denies: Cough, SOB Gastrointestinal: denies: Abdominal Pain, Constipation, Diarrhea Genitourinary: denies: Discharge, Dysuria Breasts: reports: No Symptoms Reported. denies: Pain Musculoskeletal: reports: Joint Pain. denies: Back Pain, Joint Swelling Integumentary: reports: Erythema. denies: Lesions, Rash Neurological: reports: Confusion, Tremors. denies: Seizure, Syncope Endocrine: denies: Unexplained Weight Gain, Unexplained Weight Loss Hematology/Lymphatic: denies: Easily Bruised, Excessive Bleeding Psychiatric: reports: Anxiety, Depression Physical Exam Vital Signs: Vital Signs Temperature 98.2 F 11/23/18 18:38 Pulse Rate 76 11/23/18 18:38 Respiratory Rate 18 11/23/18 18:38 Blood Pressure 129/59 L 11/23/18 18:38 O2 Sat by Pulse Oximetry (%) 98 11/23/18 17:57 Constitutional: Yes: Well Nourished, No Distress, Calm Eyes: Yes: Conjunctiva Clear, EOM Intact, Other (left lid lag) HENT: Yes: Atraumatic, Normocephalic Neck: Yes: Supple, Trachea Midline Cardiovascular: Yes: Regular Rate and Rhythm Respiratory: Yes: Regular, CTA Bilaterally Gastrointestinal: Yes: Normal Bowel Sounds, Soft. No: Tenderness ...Rectal Exam: Yes: Deferred Renal/: No: CVA Tenderness - Left, CVA Tenderness - Right Breast(s): No: Mass, Skin Changes Musculoskeletal: Yes: Joint Stiffness, Joint Swelling Extremities: Yes: Erythema (right hand to mid forearm dorsally), Other. No: Cool, Cyanosis Edema: Yes Edema: RUE: 2+ (right hand wrist to mid fore arm) Integumentary: No: Jaundice, Tenting Wound/Incision: Yes: Clean/Dry, Open to air, Reddened, Unapproximated (right hand dorsal bite zone 4 thumb). No: Draining, Excoriated Neurological: Yes: Alert, Confusion, Tremors (essential tremor Abilaterally). No: Oriented Psychiatric: Yes: Alert. No: Oriented Labs: CBC, BMP 11/23/18 14:40 11/23/18 14:40 Imaging - Results X-ray: Report Reviewed, Image Reviewed (no sign of foreign body or gas) Cat Scan: Report Reviewed, Image Reviewed Problem List - Problems (1) Cellulitis of hand, right Assessment/Plan: 83 yo RHD female mmp with right hand and forearm cellulitis no acute surgical intervention is indicated resume diet broad spectrum iv antibotics (mrsa and pasturella coverage) id consult elevation of right arm above heart level physical therapy evaluation for ROM and edema management will follow Thank you for the opportunity to participate in the care of this patient. 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
--- NOTE | 2018-11-23 19:21 | PN ---
Teaching Attending Note Name of Resident: Shannon Clemente ATTENDING PHYSICIAN STATEMENT I saw and evaluated the patient. I reviewed the resident's note and discussed the case with the resident. I agree with the resident's findings and plan as documented. SUBJECTIVE: Complains of R hand erythema/tenderness. Recent fall/ lightheadedness. No CP/palpitations. No fever/chills OBJECTIVE: Afebrile, hemodynamically Stable. Last Vital Signs Temp Pulse Resp BP Pulse Ox 98.2 F 76 18 129/59 L 98 11/23/18 18:38 11/23/18 18:38 11/23/18 18:38 11/23/18 18:38 11/23/18 17:57 HEENT- Atraumatic, Normocephalic. Heart - S1, S2, RRR lungs - clear to auscultation Abdomen - Soft, non-tender. Bowel Sounds normal. Extremities - R hand erythema on dorsal aspect, spreading along dorsal aspect of forearm. small puncture site dorsum of hand - no pus. Neuro - AAO x 2. Tone/Power normal all 4 extremities. Laboratory Results - last 24 hr 11/23/18 11/23/18 11/23/18 14:40 14:40 14:40 WBC 20.4 H RBC 3.79 Hgb 12.4 Hct 36.6 MCV 96.6 H MCH 32.8 MCHC 34.0 RDW 12.7 Plt Count 191 MPV 9.5 Absolute Neuts (auto) 18.5 H Neutrophils % 90.7 H Neutrophils % (Manual) 92.0 H Band Neutrophils % 3.0 Lymphocytes % 2.8 L D Lymphocytes % (Manual) 3.0 L Monocytes % 6.4 Monocytes % (Manual) 2 L Eosinophils % 0.0 D Basophils % 0.1 Nucleated RBC % 0 Hypochromia 1+ Platelet Estimate Normal Anisocytosis 1+ Macrocytosis 1+ PT with INR 12.20 INR 1.03 PTT (Actin FS) 26.4 Sodium 138 Potassium 4.0 Chloride 100 Carbon Dioxide 28 Anion Gap 10 BUN 21.1 H Creatinine 1.1 Est GFR (CKD-EPI)AfAm 54.15 Est GFR (CKD-EPI)NonAf 46.72 Random Glucose 122 H Lactic Acid Calcium 9.5 Total Bilirubin 1.0 AST 20 ALT 14 Alkaline Phosphatase 67 Troponin I < 0.02 Total Protein 6.8 Albumin 3.6 Urine Color Urine Appearance Urine pH Ur Specific [place] Urine Protein Urine Glucose (UA) Urine Ketones Urine Blood Urine Nitrite Urine Bilirubin Urine Urobilinogen Ur Leukocyte Esterase Urine WBC (Auto) Urine RBC (Auto) Urine Casts (Auto) U Epithel Cells (Auto) Urine Bacteria (Auto) 11/23/18 11/23/18 14:40 15:52 WBC RBC Hgb Hct MCV MCH MCHC RDW Plt Count MPV Absolute Neuts (auto) Neutrophils % Neutrophils % (Manual) Band Neutrophils % Lymphocytes % Lymphocytes % (Manual) Monocytes % Monocytes % (Manual) Eosinophils % Basophils % Nucleated RBC % Hypochromia Platelet Estimate Anisocytosis Macrocytosis PT with INR INR PTT (Actin FS) Sodium Potassium Chloride Carbon Dioxide Anion Gap BUN Creatinine Est GFR (CKD-EPI)AfAm Est GFR (CKD-EPI)NonAf Random Glucose Lactic Acid 1.2 Calcium Total Bilirubin AST ALT Alkaline Phosphatase Troponin I Total Protein Albumin Urine Color Yellow Urine Appearance Clear Urine pH 5.5 Ur Specific [place] 1.023 Urine Protein Negative Urine Glucose (UA) Negative Urine Ketones Trace H Urine Blood Negative Urine Nitrite Negative Urine Bilirubin Negative Urine Urobilinogen 0.2 Ur Leukocyte Esterase 1+ H Urine WBC (Auto) 2 Urine RBC (Auto) 3 Urine Casts (Auto) 2 U Epithel Cells (Auto) 4.4 Urine Bacteria (Auto) 15.2 Current Medications Generic Name Dose Route Start Last Admin Trade Name Freq PRN Reason Stop Dose Admin Heparin Sodium (Porcine) 5,000 unit 11/24/18 22:00 Heparin - SQ BID [facility] Sodium Chloride 1,000 mls @ 75 mls/hr 11/23/18 18:00 Normal Saline - IV ASDIR [facility] Home Medications Medication Instructions Recorded Levothyroxine [Synthroid -] 112 mcg PO DAILY 09/12/13 Cholecalciferol (Vitamin D3) 3,000 unit PO DAILY 01/07/16 [Vitamin D3] Escitalopram Oxalate [Lexapro -] 10 mg PO DAILY #0 01/15/16 Losartan Potassium [Cozaar -] 25 mg PO DAILY #0 01/15/16 Acetaminophen [Tylenol .Regular 650 mg PO Q4H PRN #0 tablet 05/15/16 Strength -] Naproxen Sodium [Aleve] 220 mg PO BID #60 tablet 05/15/16 ASSESSMENT AND PLAN: 83 year old female with history of Dementia, HTN, Hypothyroidism, Hx of Seizure Disorder, Hx CVA, found sitting on bathroom floor after an episode of dizziness/ lightheadedness - unclear whether she lost consciousness. History unclear re: head injury. No bladder/bowel incontinence. No tongue biting. Found to have R Hand/arm erythema/tenderness. 1. R Hand/Arm Cellulitis Afebrile, Hemodynamically Stable Leukocytosis, WBC 20.4 Patient has a cat and may possibly have been exposed to cat scratches R Hand/arm Xrays - no fracture/subluxation. Started on IV Zosyn. Received Zosyn/Vanco in ED. ID and Hand Surgery consulted. 2. Possible Syncope. Telemonitoring overnight CT Head - No acute intracranial findings. Small chronic L basal ganglia infarct , present on prior studies. Will order Carotid Duplex, Echo for Syncope Ix. Will start ASA. Lipid Panel in AM Urine Cx requested. 3. ST Depressions inferolateral leads Denies CP Telemonitoring, Serial Troponin measurements. Cardiology evaluation 4. HTN - Continue Losartan 5. Hypothyroidism - continue Levothyroxine. 6. Dementia - AAO x 2. no behavioral disturbance. Continue Lexapro. DVT Px - Heparin SQ
[2018-11-24] MEDS ORDERED: PIPERACILLIN/TAZOBACTAM 3.375 GM VIAL IVPB ONE ×2 (01:27→09:54)
[2018-11-24] MEDS ORDERED: DEXTROSE 5%-WATER - 50 ML IVPB ONE ×2 (01:28→09:55)
[2018-11-24] MEDS ORDERED: PIPERACILLIN/TAZOB 3.375 GM 3.375 GM in DEXTROSE 5%-WATER - 50 ML IVPB SCH (02:00)
[2018-11-24] MEDS: PIPERACILLIN/TAZOB 3.375 GM 3.375 GM in DEXTROSE 5%-WATER - 50 ML IVPB SCH ×2 (02:47→10:09)
--- NOTE | 2018-11-24 06:27 | PN ---
Physical Exam: SUBJECTIVE: Patient seen and examined OBJECTIVE: Vital Signs Period Temp Pulse Resp BP Sys/Swanson Pulse Ox Last 24 Hr 97.9 F-98.6 F 73-91 17-18 118-159/53-87 97-99 GENERAL: The patient is awake, alert, and fully oriented, in no acute distress. HEAD: Normal with no signs of trauma. EYES: PERRL, extraocular movements intact, sclera anicteric, conjunctiva clear. No ptosis. ENT: Ears normal, nares patent, oropharynx clear without exudates, moist mucous membranes. NECK: Trachea midline, full range of motion, supple. LUNGS: Breath sounds equal, clear to auscultation bilaterally, no wheezes, no crackles, no accessory muscle use. HEART: Regular rate and rhythm, S1, S2 without murmur, rub or gallop. ABDOMEN: Soft, nontender, nondistended, normoactive bowel sounds, no guarding, no rebound, no hepatosplenomegaly, no masses. EXTREMITIES: 2+ pulses, warm, well-perfused, no edema. NEUROLOGICAL: Cranial nerves II through XII grossly intact. Normal speech, gait not observed. PSYCH: Normal mood, normal affect. SKIN: Warm, dry, normal turgor, no rashes or lesions noted Laboratory Results - last 24 hr 11/23/18 11/23/18 11/23/18 14:40 14:40 14:40 WBC 20.4 H RBC 3.79 Hgb 12.4 Hct 36.6 MCV 96.6 H MCH 32.8 MCHC 34.0 RDW 12.7 Plt Count 191 MPV 9.5 Absolute Neuts (auto) 18.5 H Neutrophils % 90.7 H Neutrophils % (Manual) 92.0 H Band Neutrophils % 3.0 Lymphocytes % 2.8 L D Lymphocytes % (Manual) 3.0 L Monocytes % 6.4 Monocytes % (Manual) 2 L Eosinophils % 0.0 D Basophils % 0.1 Nucleated RBC % 0 Hypochromia 1+ Platelet Estimate Normal Anisocytosis 1+ Macrocytosis 1+ PT with INR 12.20 INR 1.03 PTT (Actin FS) 26.4 Sodium 138 Potassium 4.0 Chloride 100 Carbon Dioxide 28 Anion Gap 10 BUN 21.1 H Creatinine 1.1 Est GFR (CKD-EPI)AfAm 54.15 Est GFR (CKD-EPI)NonAf 46.72 Random Glucose 122 H Lactic Acid Calcium 9.5 Total Bilirubin 1.0 AST 20 ALT 14 Alkaline Phosphatase 67 Troponin I < 0.02 Total Protein 6.8 Albumin 3.6 Urine Color Urine Appearance Urine pH Ur Specific [place] Urine Protein Urine Glucose (UA) Urine Ketones Urine Blood Urine Nitrite Urine Bilirubin Urine Urobilinogen Ur Leukocyte Esterase Urine WBC (Auto) Urine RBC (Auto) Urine Casts (Auto) U Epithel Cells (Auto) Urine Bacteria (Auto) 11/23/18 11/23/18 11/23/18 14:40 15:52 19:30 WBC RBC Hgb Hct MCV MCH MCHC RDW Plt Count MPV Absolute Neuts (auto) Neutrophils % Neutrophils % (Manual) Band Neutrophils % Lymphocytes % Lymphocytes % (Manual) Monocytes % Monocytes % (Manual) Eosinophils % Basophils % Nucleated RBC % Hypochromia Platelet Estimate Anisocytosis Macrocytosis PT with INR INR PTT (Actin FS) Sodium Potassium Chloride Carbon Dioxide Anion Gap BUN Creatinine Est GFR (CKD-EPI)AfAm Est GFR (CKD-EPI)NonAf Random Glucose Lactic Acid 1.2 Calcium Total Bilirubin AST ALT Alkaline Phosphatase Troponin I < 0.02 Total Protein Albumin Urine Color Yellow Urine Appearance Clear Urine pH 5.5 Ur Specific [place] 1.023 Urine Protein Negative Urine Glucose (UA) Negative Urine Ketones Trace H Urine Blood Negative Urine Nitrite Negative Urine Bilirubin Negative Urine Urobilinogen 0.2 Ur Leukocyte Esterase 1+ H Urine WBC (Auto) 2 Urine RBC (Auto) 3 Urine Casts (Auto) 2 U Epithel Cells (Auto) 4.4 Urine Bacteria (Auto) 15.2 Active Medications Generic Name Dose Route Start Last Admin Trade Name Freq PRN Reason Stop Dose Admin Escitalopram Oxalate 10 mg 11/24/18 10:00 Lexapro - PO DAILY [facility] Heparin Sodium (Porcine) 5,000 unit 11/24/18 22:00 Heparin - SQ BID [facility] Sodium Chloride 1,000 mls @ 75 mls/hr 11/23/18 18:00 Normal Saline - IV ASDIR [facility] Piperacillin Sod/Tazobactam 50 mls @ 100 mls/hr 11/24/18 02:00 Sod 3.375 gm/ Dextrose IVPB Q8H-IV [facility] Protocol Piperacillin Sod/Tazobactam 50 mls @ 100 mls/hr 11/24/18 02:00 11/24/18 02:47 Sod 3.375 gm/ Dextrose IVPB 11/24/18 18:29 100 mls/hr Q8H-IV EU[facility] Administration Protocol Levothyroxine Sodium 112 mcg 11/24/18 07:00 Synthroid - PO DAILY@0700 EU[facility] Losartan Potassium 25 mg 11/24/18 10:00 Cozaar - PO DAILY [facility] Pneumococcal 13-Valent Conj Vacc 0.5 ml 11/24/18 10:00 Prevnar 13 Syringe - IM 11/24/18 10:01 .ONCE ONE ASSESSMENT/PLAN: ATTENDING PHYSICIAN STATEMENT I saw and evaluated the patient. I reviewed the resident's note and discussed the case with the resident. I agree with the resident's findings and plan as documented. SUBJECTIVE: OBJECTIVE: ASSESSMENT AND PLAN:
[2018-11-24] MEDS ORDERED: LEVOTHYROXINE NA 112 MCG TABLET (FP) PO SCH (07:00)
[2018-11-24 08:01] LABS: BASO % 0.2 % (0-2.0); EOS % 0.1 % (0-4.5); HEMATOCRIT 33.2 % (32.4-45.2); HEMOGLOBIN 11.3 GM/dL (10.7-15.3); LYMPH % 8.8 % (8-40); MCH 32.9 pg (25.7-33.7); MEAN PLT VOLUME 10.1 fl (7.5-11.1); MONO % 6.5 % (3.8-10.2); NEUT % 84.4 % (42.8-82.8); PLATELET COUNT 165 K/MM3 (134-434); RBC 3.43 M/mm3 (3.60-5.2); RDW 12.4 % (11.6-15.6)
[2018-11-24 08:56] LABS: ANION GAP 9 MMOL/L (8-16); BLOOD UREA NITROGEN 19.8 mg/dL (7-18); CALCIUM 8.7 mg/dL (8.5-10.1); CHLORIDE 102 mmol/L (98-107); CHOLESTEROL 140 mg/dL (50-200); CO2 26 mmol/L (21-32); CREATININE 1.1 mg/dL (0.55-1.3); GLUCOSE,RANDOM 99 mg/dL (74-106); HDL CHOLESTEROL 81 mg/dL (40-60); MAGNESIUM 2.1 mg/dL (1.8-2.4); POTASSIUM 3.6 mmol/L (3.5-5.1); SODIUM 137 mmol/L (136-145); TRIGLYCERIDES 44 mg/dL (0-150)
--- NOTE | 2018-11-24 09:44 | CON.CARD ---
Consult Consult Specialty:: Cardiology Referred by:: Dr. Pennington Reason for Consultation:: Abnl ECG - History of Present Illness Chief Complaint: " My cat bit me" History of Present Illness: ER History reviewed: "Ms. Patterson is an 83 yo female with PMH of seizure, CVA, HTN, and hypothyroidism who presents with right hand pain after being found on the bathroom floor by a family member about 9:00am this morning. She does not recall what happened leading to being found. Per daughter she has been acting normally the last several days. Pt also reports right hand and forearm pain and redness x 2-3 days. She has a cat at home. Pt denies fever, chills, or nausea. Source: patient at bedside, daughter by phone" As per my history, she denies CP, palps, SOB. Does not recall falling. Reports that her cat "bit" her right arm "a few days ago" ID has been consulted. She was cultured and started on IV abx for cellulitis of that arm. We were called due to T wave abn on ECG in I, II and V3-V6. When compared to an old ECG on file here 2016, the T wave changes in V3-V6 are old; the T wave changes in I, II are new. Denies prior cardiac hx. 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 Cardio/Vascular: Yes: HTN Endocrine: Yes: Hypothyroidism - Past Surgical History Past Surgical History: Yes: Cataract Removal, Hysterectomy - Alcohol/Substance Use Hx Alcohol Use: No History of Substance Use: reports: None - Smoking History Smoking history: Never smoked Have you smoked in the past 12 months: No - Social History Usual Living Arrangement: With Spouse (with her disabled ) ADL: Family Assistance History of Recent Travel: No Home Medications - Allergies Allergies/Adverse Reactions: Allergies Allergy/AdvReac Type Severity Reaction Status Date / Time No Known Allergies Allergy Verified 11/23/18 12:51 - Home Medications Home Medications: Ambulatory Orders Levothyroxine [Synthroid -] 112 mcg PO DAILY 09/12/13 Cholecalciferol (Vitamin D3) [Vitamin D3] 3,000 unit PO DAILY 01/07/16 Escitalopram Oxalate [Lexapro -] 10 mg PO DAILY #0 01/15/16 Losartan Potassium [Cozaar -] 25 mg PO DAILY #0 01/15/16 Acetaminophen [Tylenol .Regular Strength -] 650 mg PO Q4H PRN #0 tablet Naproxen Sodium [Aleve] 220 mg PO BID #60 tablet 05/15/16 Donepezil HCl [Aricept] 10 mg PO ACHS 11/23/18 Losartan/Hydrochlorothiazide [Hyzaar 100-12.5 Tablet] 1 each PO DAILY 11/23/18 Family Disease History - Family Disease History Family Disease History: Other: Brother (dementia) Review of Systems - Review of Systems Constitutional: reports: No Symptoms Eyes: reports: No Symptoms HENT: reports: No Symptoms, Ocular Prosthesis Cardiovascular: reports: No Symptoms Respiratory: reports: No Symptoms Gastrointestinal: reports: No Symptoms Genitourinary: reports: No Symptoms Breasts: reports: No Symptoms Reported Musculoskeletal: reports: No Symptoms Integumentary: reports: Other (erythema and edema right arm) Neurological: reports: No Symptoms Endocrine: reports: No Symptoms Hematology/Lymphatic: reports: No Symptoms Psychiatric: reports: No Symptoms - Risk Factors Known Risk Factors: Yes: Hypertension Vital Signs: Vital Signs Temperature 97.8 F 11/24/18 06:00 Pulse Rate 67 11/24/18 06:00 Respiratory Rate 18 11/24/18 06:00 Blood Pressure 106/59 L 11/24/18 06:00 O2 Sat by Pulse Oximetry (%) 98 11/23/18 22:00 Constitutional: Yes: No Distress, Calm Eyes: Yes: Conjunctiva Clear, EOM Intact Respiratory: Yes: CTA Bilaterally Gastrointestinal: Yes: Soft (NT) Cardiovascular: Yes: Regular Rate and Rhythm JVD: No Carotid Bruit: No Heart Sounds: Yes: S1, S2 Murmur: Yes: Systolic Murmur (2/6 RSB) Edema: Yes Edema: RUE: 2+ Peripheral Pulses WNL: Yes Neurological: Yes: Alert ...Motor Strength: WNL - Other Data Labs, Other Data: CBC, BMP 11/24/18 06:00 11/24/18 06:00 INR, PTT INR 1.03 (0.83-1.09) 11/23/18 14:40 Troponin, BNP 11/23/18 11/23/18 14:40 19:30 Troponin I < 0.02 < 0.02 Troponin, BNP 11/23/18 11/23/18 14:40 19:30 Troponin I < 0.02 < 0.02 Laboratory Tests 11/23/18 11/23/18 11/23/18 14:40 14:40 19:30 WBC Hgb Plt Count INR 1.03 Sodium Potassium Creatinine Troponin I < 0.02 < 0.02 HDL Cholesterol TSH 11/24/18 11/24/18 06:00 06:00 WBC 13.0 H Hgb 11.3 Plt Count 165 INR Sodium 137 Potassium 3.6 Creatinine 1.1 Troponin I HDL Cholesterol 81 H TSH 0.19 L NSR 74bpm, TWI I, II, V3-V6 Echo: Pending Imaging - Results Chest X-ray: Image Reviewed Cat Scan: Report Reviewed Assessment/Plan IMP: 1. Right hand/arm cellulitis, possible cat bite? 2. Leukocytosis secondary to above. 3. Thyroid disorder 4. Fall: possible syncope vs seizure, unclear circumstances 5. Abnl ECG w/ nonspecific T wave changes: Nonspecific T wave changes may be seen in setting seizure. REC: 1. Cultures, abx as per PMD and ID. 2. Telemetry for 24 hours to r/o arrhythmia. 3. Nonspecific T Wave changes on ECG (new in I, II, chronic in V3-V6), asx , with negative cardiac enzymes. -Echo for EF assessment. -Cycle 3 sets cardiac enzymes. -Non-urgent stress test recommended when acute infectious issues resolve 4. Consider Neuro eval 5. Check orthostatics. 6. Further management of thyroid disorder (note TSH) as per PMD.
[2018-11-24] MEDS ORDERED: PNEUMOC 13-VAL CONJ-DIP CRM/PF 0.5 ML DISP.SYRIN IM ONE (10:00)
[2018-11-24] MEDS ORDERED: ESCITALOPRAM OXALATE 10 MG TABLET (FP) PO SCH (10:00)
[2018-11-24] MEDS ORDERED: LOSARTAN POTASSIUM 25 MG TABLET PO SCH (10:00)
--- NOTE | 2018-11-24 11:17 | PN ---
Teaching Attending Note Name of Resident: Shannon Clemente ATTENDING PHYSICIAN STATEMENT I saw and evaluated the patient. I reviewed the resident's note and discussed the case with the resident. I agree with the resident's findings and plan as documented. SUBJECTIVE: Complains of R hand erythema/tenderness. Recent fall/ lightheadedness. No CP/palpitations. No fever/chills OBJECTIVE: Afebrile, hemodynamically Stable. Appears frail. Last Vital Signs Temp Pulse Resp BP Pulse Ox 97.8 F 67 18 106/59 L 98 11/24/18 06:00 11/24/18 06:00 11/24/18 06:00 11/24/18 06:00 11/23/18 22:00 Heart - S1, S2, RRR Lungs - clear to auscultation Abdomen - Soft, non-tender. Bowel Sounds normal. Extremities - R hand erythema on dorsal aspect, extends along dorsal aspect of forearm. small puncture site dorsum of hand - no pus. Mild improvement from yesterday Neuro - AAO x 2. Tone/Power normal all 4 extremities. Laboratory Results - last 24 hr 11/23/18 11/23/18 11/23/18 14:40 14:40 14:40 WBC 20.4 H RBC 3.79 Hgb 12.4 Hct 36.6 MCV 96.6 H MCH 32.8 MCHC 34.0 RDW 12.7 Plt Count 191 MPV 9.5 Absolute Neuts (auto) 18.5 H Neutrophils % 90.7 H Neutrophils % (Manual) 92.0 H Band Neutrophils % 3.0 Lymphocytes % 2.8 L D Lymphocytes % (Manual) 3.0 L Monocytes % 6.4 Monocytes % (Manual) 2 L Eosinophils % 0.0 D Basophils % 0.1 Nucleated RBC % 0 Hypochromia 1+ Platelet Estimate Normal Anisocytosis 1+ Macrocytosis 1+ PT with INR 12.20 INR 1.03 PTT (Actin FS) 26.4 Sodium 138 Potassium 4.0 Chloride 100 Carbon Dioxide 28 Anion Gap 10 BUN 21.1 H Creatinine 1.1 Est GFR (CKD-EPI)AfAm 54.15 Est GFR (CKD-EPI)NonAf 46.72 Random Glucose 122 H Lactic Acid Calcium 9.5 Magnesium Total Bilirubin 1.0 AST 20 ALT 14 Alkaline Phosphatase 67 Troponin I < 0.02 Total Protein 6.8 Albumin 3.6 Triglycerides Cholesterol Total LDL Cholesterol HDL Cholesterol TSH Urine Color Urine Appearance Urine pH Ur Specific [place] Urine Protein Urine Glucose (UA) Urine Ketones Urine Blood Urine Nitrite Urine Bilirubin Urine Urobilinogen Ur Leukocyte Esterase Urine WBC (Auto) Urine RBC (Auto) Urine Casts (Auto) U Epithel Cells (Auto) Urine Bacteria (Auto) 11/23/18 11/23/18 11/23/18 14:40 15:52 19:30 WBC RBC Hgb Hct MCV MCH MCHC RDW Plt Count MPV Absolute Neuts (auto) Neutrophils % Neutrophils % (Manual) Band Neutrophils % Lymphocytes % Lymphocytes % (Manual) Monocytes % Monocytes % (Manual) Eosinophils % Basophils % Nucleated RBC % Hypochromia Platelet Estimate Anisocytosis Macrocytosis PT with INR INR PTT (Actin FS) Sodium Potassium Chloride Carbon Dioxide Anion Gap BUN Creatinine Est GFR (CKD-EPI)AfAm Est GFR (CKD-EPI)NonAf Random Glucose Lactic Acid 1.2 Calcium Magnesium Total Bilirubin AST ALT Alkaline Phosphatase Troponin I < 0.02 Total Protein Albumin Triglycerides Cholesterol Total LDL Cholesterol HDL Cholesterol TSH Urine Color Yellow Urine Appearance Clear Urine pH 5.5 Ur Specific [place] 1.023 Urine Protein Negative Urine Glucose (UA) Negative Urine Ketones Trace H Urine Blood Negative Urine Nitrite Negative Urine Bilirubin Negative Urine Urobilinogen 0.2 Ur Leukocyte Esterase 1+ H Urine WBC (Auto) 2 Urine RBC (Auto) 3 Urine Casts (Auto) 2 U Epithel Cells (Auto) 4.4 Urine Bacteria (Auto) 15.2 11/24/18 11/24/18 06:00 06:00 WBC 13.0 H RBC 3.43 L Hgb 11.3 Hct 33.2 MCV 97.0 H MCH 32.9 MCHC 34.0 RDW 12.4 Plt Count 165 MPV 10.1 Absolute Neuts (auto) 11.0 H Neutrophils % 84.4 H Neutrophils % (Manual) Band Neutrophils % Lymphocytes % 8.8 D Lymphocytes % (Manual) Monocytes % 6.5 Monocytes % (Manual) Eosinophils % 0.1 D Basophils % 0.2 Nucleated RBC % 0 Hypochromia Platelet Estimate Anisocytosis Macrocytosis PT with INR INR PTT (Actin FS) Sodium 137 Potassium 3.6 Chloride 102 Carbon Dioxide 26 Anion Gap 9 BUN 19.8 H Creatinine 1.1 Est GFR (CKD-EPI)AfAm 54.15 Est GFR (CKD-EPI)NonAf 46.72 Random Glucose 99 Lactic Acid Calcium 8.7 Magnesium 2.1 Total Bilirubin AST ALT Alkaline Phosphatase Troponin I < 0.02 Total Protein Albumin Triglycerides 44 Cholesterol 140 Total LDL Cholesterol 50 HDL Cholesterol 81 H TSH 0.19 L Urine Color Urine Appearance Urine pH Ur Specific [place] Urine Protein Urine Glucose (UA) Urine Ketones Urine Blood Urine Nitrite Urine Bilirubin Urine Urobilinogen Ur Leukocyte Esterase Urine WBC (Auto) Urine RBC (Auto) Urine Casts (Auto) U Epithel Cells (Auto) Urine Bacteria (Auto) Current Medications Generic Name Dose Route Start Last Admin Trade Name Freq PRN Reason Stop Dose Admin Escitalopram Oxalate 10 mg 11/24/18 10:00 11/24/18 10:11 Lexapro - PO 10 mg DAILY [facility] Administration Heparin Sodium (Porcine) 5,000 unit 11/24/18 22:00 Heparin - SQ BID [facility] Sodium Chloride 1,000 mls @ 75 mls/hr 11/23/18 18:00 Normal Saline - IV ASDIR [facility] Piperacillin Sod/Tazobactam 50 mls @ 100 mls/hr 11/24/18 02:00 Sod 3.375 gm/ Dextrose IVPB Q8H-IV [facility] Protocol Piperacillin Sod/Tazobactam 50 mls @ 100 mls/hr 11/24/18 02:00 11/24/18 10:09 Sod 3.375 gm/ Dextrose IVPB 11/24/18 18:29 100 mls/hr Q8H-IV [facility] Administration Protocol Levothyroxine Sodium 112 mcg 11/24/18 07:00 11/24/18 06:35 Synthroid - PO 112 mcg DAILY@0700 [facility] Administration Losartan Potassium 25 mg 11/24/18 10:00 11/24/18 10:11 Cozaar - PO 25 mg DAILY [facility] Administration Home Medications Medication Instructions Recorded Levothyroxine [Synthroid -] 112 mcg PO DAILY 09/12/13 Cholecalciferol (Vitamin D3) 3,000 unit PO DAILY 01/07/16 [Vitamin D3] Escitalopram Oxalate [Lexapro -] 10 mg PO DAILY #0 01/15/16 Losartan Potassium [Cozaar -] 25 mg PO DAILY #0 01/15/16 Acetaminophen [Tylenol .Regular 650 mg PO Q4H PRN #0 tablet 05/15/16 Strength -] Naproxen Sodium [Aleve] 220 mg PO BID #60 tablet 05/15/16 Donepezil HCl [Aricept] 10 mg PO ACHS 11/23/18 Losartan/Hydrochlorothiazide 1 each PO DAILY 11/23/18 [Hyzaar 100-12.5 Tablet] ASSESSMENT AND PLAN: 83 year old female with history of Dementia, HTN, Hypothyroidism, Hx of Seizure Disorder, Hx CVA, found sitting on bathroom floor after an episode of dizziness/ lightheadedness - unclear whether she lost consciousness. History unclear re: head injury. No bladder/bowel incontinence. No tongue biting. Found to have R Hand/arm erythema/tenderness. 1. R Hand/Arm Cellulitis sec to cat scratch/bite Afebrile, Hemodynamically Stable Leukocytosis improving Patient has a cat and may possibly have been exposed to cat scratches/bites R Hand/arm X rays - no fracture/subluxation. Continue IV Zosyn pending ID eval. Hand Surgery eval - no need for surgical intervention. 2. Possible Syncope. No Telemonitoring events overnight CT Head - No acute intracranial findings. Small chronic L basal ganglia infarct , present on prior studies. Carotid Duplex, Echo requested. Started on Aspirin. LDL 50/HDL 81/TG 44. Unclear utility of introducing statin given advanced age and frailty. Urine Cx pending. 3. ST Depressions inferolateral leads (old changes lateral leads, new changes I , II) Denies CP Serial Troponin measurements negative so far. Cardiology evaluated - recommends non-urgent stress test. 4. HTN - Continue Losartan 5. Hypothyroidism - TSH 0.19. Will decrease Levothyroxine dose to 100mcg - for repeat TFTs in 4 weeks. 6. Dementia - AAO x 2. No behavioral disturbance. Continue Lexapro. DVT Px - Heparin SQ
[2018-11-24] MEDS ORDERED: LEVOTHYROXINE NA 100 MCG TABLET (FP) PO SCH (11:21)
--- NOTE | 2018-11-24 11:54 | PN ---
Physical Exam: SUBJECTIVE: Patient seen and examined. Pt is reporting pain in her right arm and hand when it is touched. She is otherwise comfortable. No tele events overnight. OBJECTIVE: Vital Signs Period Temp Pulse Resp BP Sys/Swanson Pulse Ox Last 24 Hr 97.2 F-98.6 F 67-91 17-18 102-159/53-87 97-99 GENERAL: Awake, alert, and oriented to person and place, in no acute distress. HEAD: Normal with no signs of trauma. EYES: Pupils equal, round and reactive to light, extraocular movements intact, sclera anicteric, conjunctiva clear. No lid lag. EARS, NOSE, THROAT: Ears normal, nares patent, oist mucous membranes. NECK: Normal range of motion LUNGS: Breath sounds equal, clear to auscultation bilaterally. No wheezes, and no crackles. No accessory muscle use. HEART: Regular rate and rhythm, normal S1 and S2 without murmur ABDOMEN: Soft, nontender, not distended, normoactive bowel sounds, MUSCULOSKELETAL: Reduced ROM of right wrist in flexion and extension, small increase from yesterday. Difficulty flexing fingers. UPPER EXTREMITIES: 2+ pulses, warm, well-perfused. No cyanosis. No clubbing. LOWER EXTREMITIES: 2+ pulses, warm, well-perfused. No peripheral edema. NEUROLOGICAL: Cranial nerves II-XII intact. Normal speech. PSYCHIATRIC: Cooperative. Good eye contact. Appropriate mood and affect. SKIN: Diffuse erythema of right hand ascending to just above elbow with improving swelling. No obvious streaking. Warm to touch. Puncture wound on dorsal surface of hand between 1st and 2nd metacarpal without discharge. Minimal abrasions on posterior forearm. Laboratory Results - last 24 hr 11/23/18 11/23/18 11/23/18 14:40 14:40 14:40 WBC 20.4 H RBC 3.79 Hgb 12.4 Hct 36.6 MCV 96.6 H MCH 32.8 MCHC 34.0 RDW 12.7 Plt Count 191 MPV 9.5 Absolute Neuts (auto) 18.5 H Neutrophils % 90.7 H Neutrophils % (Manual) 92.0 H Band Neutrophils % 3.0 Lymphocytes % 2.8 L D Lymphocytes % (Manual) 3.0 L Monocytes % 6.4 Monocytes % (Manual) 2 L Eosinophils % 0.0 D Basophils % 0.1 Nucleated RBC % 0 Hypochromia 1+ Platelet Estimate Normal Anisocytosis 1+ Macrocytosis 1+ PT with INR 12.20 INR 1.03 PTT (Actin FS) 26.4 Sodium 138 Potassium 4.0 Chloride 100 Carbon Dioxide 28 Anion Gap 10 BUN 21.1 H Creatinine 1.1 Est GFR (CKD-EPI)AfAm 54.15 Est GFR (CKD-EPI)NonAf 46.72 Random Glucose 122 H Lactic Acid Calcium 9.5 Magnesium Total Bilirubin 1.0 AST 20 ALT 14 Alkaline Phosphatase 67 Troponin I < 0.02 Total Protein 6.8 Albumin 3.6 Triglycerides Cholesterol Total LDL Cholesterol HDL Cholesterol TSH Urine Color Urine Appearance Urine pH Ur Specific Carney Urine Protein Urine Glucose (UA) Urine Ketones Urine Blood Urine Nitrite Urine Bilirubin Urine Urobilinogen Ur Leukocyte Esterase Urine WBC (Auto) Urine RBC (Auto) Urine Casts (Auto) U Epithel Cells (Auto) Urine Bacteria (Auto) 11/23/18 11/23/18 11/23/18 14:40 15:52 19:30 WBC RBC Hgb Hct MCV MCH MCHC RDW Plt Count MPV Absolute Neuts (auto) Neutrophils % Neutrophils % (Manual) Band Neutrophils % Lymphocytes % Lymphocytes % (Manual) Monocytes % Monocytes % (Manual) Eosinophils % Basophils % Nucleated RBC % Hypochromia Platelet Estimate Anisocytosis Macrocytosis PT with INR INR PTT (Actin FS) Sodium Potassium Chloride Carbon Dioxide Anion Gap BUN Creatinine Est GFR (CKD-EPI)AfAm Est GFR (CKD-EPI)NonAf Random Glucose Lactic Acid 1.2 Calcium Magnesium Total Bilirubin AST ALT Alkaline Phosphatase Troponin I < 0.02 Total Protein Albumin Triglycerides Cholesterol Total LDL Cholesterol HDL Cholesterol TSH Urine Color Yellow Urine Appearance Clear Urine pH 5.5 Ur Specific Carney 1.023 Urine Protein Negative Urine Glucose (UA) Negative Urine Ketones Trace H Urine Blood Negative Urine Nitrite Negative Urine Bilirubin Negative Urine Urobilinogen 0.2 Ur Leukocyte Esterase 1+ H Urine WBC (Auto) 2 Urine RBC (Auto) 3 Urine Casts (Auto) 2 U Epithel Cells (Auto) 4.4 Urine Bacteria (Auto) 15.2 11/24/18 11/24/18 06:00 06:00 WBC 13.0 H RBC 3.43 L Hgb 11.3 Hct 33.2 MCV 97.0 H MCH 32.9 MCHC 34.0 RDW 12.4 Plt Count 165 MPV 10.1 Absolute Neuts (auto) 11.0 H Neutrophils % 84.4 H Neutrophils % (Manual) Band Neutrophils % Lymphocytes % 8.8 D Lymphocytes % (Manual) Monocytes % 6.5 Monocytes % (Manual) Eosinophils % 0.1 D Basophils % 0.2 Nucleated RBC % 0 Hypochromia Platelet Estimate Anisocytosis Macrocytosis PT with INR INR PTT (Actin FS) Sodium 137 Potassium 3.6 Chloride 102 Carbon Dioxide 26 Anion Gap 9 BUN 19.8 H Creatinine 1.1 Est GFR (CKD-EPI)AfAm 54.15 Est GFR (CKD-EPI)NonAf 46.72 Random Glucose 99 Lactic Acid Calcium 8.7 Magnesium 2.1 Total Bilirubin AST ALT Alkaline Phosphatase Troponin I < 0.02 Total Protein Albumin Triglycerides 44 Cholesterol 140 Total LDL Cholesterol 50 HDL Cholesterol 81 H TSH 0.19 L Urine Color Urine Appearance Urine pH Ur Specific Carney Urine Protein Urine Glucose (UA) Urine Ketones Urine Blood Urine Nitrite Urine Bilirubin Urine Urobilinogen Ur Leukocyte Esterase Urine WBC (Auto) Urine RBC (Auto) Urine Casts (Auto) U Epithel Cells (Auto) Urine Bacteria (Auto) Active Medications Current Medications Donepezil HCl (Aricept -) 5 mg PO DAILY [facility] Escitalopram Oxalate (Lexapro -) 20 mg PO DAILY [facility] Heparin Sodium (Porcine) (Heparin -) 5,000 unit SQ BID [facility] Hydrochlorothiazide (Hctz -) 12.5 mg PO DAILY [facility] Sodium Chloride (Normal Saline -) 1,000 mls @ 75 mls/hr IV ASDIR [facility] Vancomycin HCl (Vancomycin (Pre-Docked)) 1,000 mg in 250 mls @ 200 mls/hr IVPB Q24H [facility]; Protocol Last Admin: 11/24/18 15:12 Dose: 200 mls/hr Ampicillin Sodium/Sulbactam (Sodium 1.5 gm/ Sodium Chloride) 100 mls @ 200 mls/ hr IVPB Q6H-IV [facility] Last Admin: 11/24/18 16:12 Dose: 200 mls/hr Losartan Potassium (Cozaar -) 100 mg PO DAILY [facility] ASSESSMENT/PLAN: Ms. Patterson is an 83yo female with hx of dementia, seizures, CVA, HTN, and hypothyroidism who presents following possible syncopal episode and right hand/ arm erythema and swelling. #cellulitis of right hand and arm RUE erythema and swelling improved. WBC 20.4-->13.0. Afebrile. Puncture wound and abrasions consistent with cat bite and/or scratches. -Unasyn and Vancomycin -CBC -Surgery following #syncope vs seizure Pt cannot recall if she lost consciousness. hx of dementia. hx of seizures. CT head and c-spine negative for acute processes. EKG showed non-specific T wave changes. -carotid doppler showed no evidence of hemodynamically significant stenosis bilaterally -echo showed EF 60-65%, mild MR, mild TR, mild aortic sclerosis, mild AR, no effusion -CXR no PNA -lipid panel normal -Mg -urine cx pending -blood cx pending- no growth x 1 day -consider neuro consult #T wave changes in EKG New changes in I and II, chronic V3-V6. Non-specific T wave changes could be seen with seizures. -trop negative x 3 -non-urgent stress test when acute infectious process improves #thyroid disorder Per med reconciliation finalized today, pt has not filled Synthroid recently for hypothyroid. TSH 0.16 today. No tachycardia or palpitations. Pt mentioned weight loss in passing during interview. -free T4 -f/u endocrine outpt #CVA chronic left basal ganglia infarct on head CT -stable #HTN normotensive -continue home losartan/HCTZ #dementia on Aricept at home #mood disorder -continue home lexapro FEN NS 75mL/hr monitor lytes, BUN 21.1 NPO DVT Ppe heparin Visit type - Emergency Visit Emergency Visit: Yes ED Registration Date: 11/23/18 Care time: The patient presented to the Emergency Department on the above date and was hospitalized for further evaluation of their emergent condition. - New Patient This patient is new to me today: No - Critical Care Critical Care patient: No - Discharge Referral Referred to [facility] No ATTENDING PHYSICIAN STATEMENT I saw and evaluated the patient. I reviewed the resident's note and discussed the case with the resident. I agree with the resident's findings and plan as documented. SUBJECTIVE: OBJECTIVE: ASSESSMENT AND PLAN:
--- NOTE | 2018-11-24 14:57 | PN ---
Progress Note (short form) - Note Progress Note: ID CONSULT DICTATED CELLULITIS R UE S/P CAT SCRATCH EMPIRIC UNASYN/VANCOMYCIN ELEVATION
[2018-11-24] MEDS ORDERED: AMPICILLIN NA/SULBACTAM NA 1.5 GM in SODIUM CHLORIDE 100 ML IVPB SCH (15:00)
[2018-11-24] MEDS: VANCOMYCIN 1 GRAM (PRE-DOCKED) 1,000 MG/250 ML BAG IVPB SCH (15:12)
--- NOTE | 2018-11-24 15:58 | PN ---
Progress Note, Physician Chief Complaint: right arm cat scratch/ cellulitis History of Present Illness: 83 yo RHD female with PMH of seizure, CVA, HTN, and hypothyroidism who presents with right hand pain after being found on the bathroom floor by a family member about 9:00am this morning. He has been stable and improving the arm swelling compared to the previous day. - Current Medication List Current Medications: Active Medications Escitalopram Oxalate (Lexapro -) 10 mg PO DAILY [facility] Last Admin: 11/24/18 10:11 Dose: 10 mg Heparin Sodium (Porcine) (Heparin -) 5,000 unit SQ BID [facility] Sodium Chloride (Normal Saline -) 1,000 mls @ 75 mls/hr IV ASDIR [facility] Vancomycin HCl (Vancomycin (Pre-Docked)) 1,000 mg in 250 mls @ 200 mls/hr IVPB Q24H [facility]; Protocol Ampicillin Sodium/Sulbactam (Sodium 1.5 gm/ Sodium Chloride) 100 mls @ 200 mls/ hr IVPB Q6H-IV [facility] Levothyroxine Sodium (Synthroid -) 100 mcg PO DAILY@0700 [facility] Losartan Potassium (Cozaar -) 25 mg PO DAILY [facility] Last Admin: 11/24/18 10:11 Dose: 25 mg - Objective Vital Signs: Vital Signs Temperature 98.3 F 11/24/18 15:20 Pulse Rate 70 11/24/18 15:20 Respiratory Rate 15 11/24/18 15:20 Blood Pressure 129/53 L 11/24/18 15:20 O2 Sat by Pulse Oximetry (%) 98 11/24/18 09:00 Constitutional: Yes: Well Nourished, No Distress, Calm Eyes: Yes: Conjunctiva Clear, EOM Intact HENT: Yes: Atraumatic, Normocephalic Neck: Yes: Supple, Trachea Midline Cardiovascular: Yes: Regular Rate and Rhythm, S1, S2 Respiratory: Yes: Regular, CTA Bilaterally Gastrointestinal: Yes: Normal Bowel Sounds, Soft ...Rectal Exam: Yes: Deferred Genitourinary: No: CVA Tenderness - Left, CVA Tenderness - Right Breast(s): No: Mass, Skin Changes Extremities: Yes: Erythema. No: Cool, Cyanosis Edema: Yes Edema: RUE: 2+ Peripheral Pulses WNL: Yes Peripheral Pulses: Left Radial: 2+, Right Radial: 2+, Left Doralis Pedis: 2+, Right Dorsalis Pedis: 2+, Left Femoral: 2+, Right Femoral: 2+ Neurological: Yes: Alert, Oriented Psychiatric: Yes: Alert, Oriented Labs: CBC, BMP 11/24/18 06:00 11/24/18 06:00 INR, PTT INR 1.03 (0.83-1.09) 11/23/18 14:40 Problem List - Problems (1) Cellulitis of hand, right Assessment/Plan: 83 yo RHD female mmp with right hand and forearm cellulitis no acute surgical intervention is indicated resume diet broad spectrum iv antibotics (mrsa and pasturella coverage) id consult elevation of right arm above heart level physical therapy evaluation for ROM and edema management Code(s): L03.113 - CELLULITIS OF RIGHT UPPER LIMB (2) Animal bite Code(s): T14.8XXA - OTHER INJURY OF UNSPECIFIED BODY REGION, INITIAL ENCOUNTER (3) Anxiety associated with depression Code(s): F41.8 - OTHER SPECIFIED ANXIETY DISORDERS (4) Arthritis Code(s): M19.90 - UNSPECIFIED OSTEOARTHRITIS, UNSPECIFIED SITE (5) HTN (hypertension) Code(s): I10 - ESSENTIAL (PRIMARY) HYPERTENSION (6) Hypothyroid Code(s): E03.9 - HYPOTHYROIDISM, UNSPECIFIED Qualifiers: 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
--- NOTE | 2018-11-24 16:04 | ECHO ---
Name: DEE URIAHEVIE Exam:Adult Echocardiogram Study Date: 11/24/2018 01:39 PM Age: 83 yrs Reason For Study: SYNCOPE Height: 60 in Weight: 140 lb BSA: 1.6 m2 MMode/2D Measurements & Calculations IVSd: 0.96 cm Ao root diam: 2.6 cm LVIDd: 4.8 cm LA dimension: 3.5 cm LVIDs: 3.2 cm LVPWd: 0.77 cm EDV(Teich): 104.9 ml LVOT diam: 2.0 cm ESV(Teich): 39.4 ml Doppler Measurements & Calculations MV E max constantino: 56.1 cm/sec Ao V2 max: 163.0 cm/sec MV A max constantino: 52.6 cm/sec Ao max P.6 mmHg MV E/A: 1.1 Ao V2 mean: 103.0 cm/sec MV dec time: 0.18 sec Ao mean P.0 mmHg Ao V2 VTI: 33.5 cm FELICITA(I,D): 1.9 cm2 FELICITA(V,D): 1.9 cm2 LV V1 max P.7 mmHg MR max constantino: 317.0 cm/sec LV V1 mean P.0 mmHg MR max P.2 mmHg LV V1 max: 96.3 cm/sec LV V1 mean: 62.9 cm/sec LV V1 VTI: 20.6 cm SV(LVOT): 64.7 ml TR max constantino: 221.8 cm/sec TR max P.5 mmHg Med Peak E' Constantino: 6.5 cm/sec Med E/e': 8.7 Lat Peak E' Constantino: 12.3 cm/sec Lat E/e': 4.6 Left Ventricle The left ventricular size, thickness and function are normal. Ejection Fraction = 60-65%. The transmi tral spectral Doppler flow pattern is normal for age. Right Ventricle The right ventricle is normal in size and function. Atria Normal left and right atrial size and function. Mitral Valve The mitral valve is grossly normal. There is no mitral valve stenosis. There is mild mitral regurgita tion. Tricuspid Valve The tricuspid valve is normal in structure and function. There is mild tricuspid regurgitation. Right ventricular systolic pressure is normal. Aortic Valve There is mild aortic sclerosis.;. No hemodynamically significant valvular aortic stenosis. Mild aorti c regurgitation. Pulmonic Valve The pulmonic valve is not well seen, but is grossly normal. There is no pulmonic valvular stenosis. M ild pulmonic valvular regurgitation. Great Vessels The aortic root is normal size. Pericardium/Pleura There is no pericardial effusion. Interpretation Summary Ejection Fraction = 60-65%. The left ventricular size, thickness and function are normal The right ventricle is normal in size and function. There is mild mitral regurgitation. There is mild tricuspid regurgitation. Right ventricular systolic pressure is normal. There is mild aortic sclerosis.; No hemodynamically significant valvular aortic stenosis. Mild aortic regurgitation. There is no pericardial effusion. MD Mcguire *Ankur 11/24/2018 04:04 PM
[2018-11-24] MEDS ORDERED: AMPICILLIN NA/SULBACTAM NA 1.5 GM VIAL ONE ×2 (16:05→20:33)
[2018-11-24] MEDS ORDERED: SODIUM CHLORIDE 100 ML IVPB ONE ×2 (16:05→20:33)
[2018-11-24] MEDS: AMPICILLIN NA/SULBACTAM NA 1.5 GM in SODIUM CHLORIDE 100 ML IVPB SCH ×2 (16:12→20:42)
[2018-11-24] MEDS ORDERED: ACETAMINOPHEN 325 MG TABLET (FP) ONE (18:24)
[2018-11-24] MEDS ORDERED: ACETAMINOPHEN 325 MG TABLET (FP) PO PRN (20:23)
[2018-11-24] MEDS ORDERED: HEPARIN NA (PORCINE) 5,000 UNITS/ML 1ML VIAL SQ SCH (22:00)
[2018-11-24] MEDS ORDERED: DONEPEZIL HCL 5 MG TABLET (FP) PO SCH (22:00)
[2018-11-25] MEDS ORDERED: AMPICILLIN NA/SULBACTAM NA 1.5 GM VIAL ONE ×4 (03:05→21:02)
[2018-11-25] MEDS ORDERED: SODIUM CHLORIDE 100 ML IVPB ONE ×4 (03:05→21:02)
[2018-11-25] MEDS: AMPICILLIN NA/SULBACTAM NA 1.5 GM in SODIUM CHLORIDE 100 ML IVPB SCH ×4 (03:22→21:08)
[2018-11-25] MEDS ORDERED: LEVOTHYROXINE NA 100 MCG TABLET (FP) PO SCH (07:00)
[2018-11-25] MEDS ORDERED: SODIUM CHLORIDE 1,000 ML IV SCH (07:50)
[2018-11-25 08:24] LABS: BASO % 0.3 % (0-2.0); HEMATOCRIT 32.3 % (32.4-45.2); HEMOGLOBIN 11.3 GM/dL (10.7-15.3); LYMPH % 11.5 % (8-40); MCH 33.3 pg (25.7-33.7); MCHC 34.9 g/dl (32.0-36.0); MEAN CELL VOLUME 95.4 fl (80-96); MEAN PLT VOLUME 9.9 fl (7.5-11.1); MONO % 8.2 % (3.8-10.2); PLATELET COUNT 162 K/MM3 (134-434); RBC 3.39 M/mm3 (3.60-5.2); RDW 12.6 % (11.6-15.6); WHITE BLOOD COUNT 7.7 K/mm3 (4.0-10.0)
[2018-11-25 09:07] LABS: BLOOD UREA NITROGEN 14.6 mg/dL (7-18); CALCIUM 8.6 mg/dL (8.5-10.1); CREATININE 0.9 mg/dL (0.55-1.3); POTASSIUM 3.7 mmol/L (3.5-5.1)
[2018-11-25] MEDS ORDERED: ESCITALOPRAM OXALATE 20 MG TABLET (FP) PO SCH (10:00)
[2018-11-25] MEDS ORDERED: PATIENT'S OWN MEDICATION (NON-FORMULARY) (Losartan/Hydrochlorothiazide [Hyzaar 100-12.5 Ta PO SCH (10:00)
[2018-11-25] MEDS: HEPARIN NA (PORCINE) 5,000 UNITS/ML 1ML VIAL SQ SCH ×2 (10:03→22:43)
[2018-11-25] MEDS: LOSARTAN POTASSIUM 50 MG TABLET (FP) PO SCH (10:03)
[2018-11-25] MEDS: ESCITALOPRAM OXALATE 10 MG TABLET (FP) PO SCH (10:03)
[2018-11-25] MEDS: HYDROCHLOROTHIAZIDE 12.5 MG CAPSULE (FP) PO SCH (10:03)
[2018-11-25] MEDS: DONEPEZIL HCL 5 MG TABLET (FP) PO SCH (10:03)
[2018-11-25] MEDS ORDERED: LIDOCAINE HCL 1%, 10 MG/ML (20ML VIAL) NR ONE ×2 (10:07→10:15)
[2018-11-25] MEDS ORDERED: LIDOCAINE HCL 1%, 10 MG/ML (20ML VIAL) ONE ×2 (10:08→10:30)
--- NOTE | 2018-11-25 10:17 | PROC ---
Incision and Drainage Indication/Location: dorsum of right had first webspace and dorsal forearm Risks and Benefits Explained: Yes Consent on Chart: Yes Betadine cleansed: Yes Anesthesia: 1% Lidocaine Blade Size: 11 Irrigated with Normal Saline: Yes Plain packing: No Sterile Dressing Applied: Yes - Remarks Remarks: strile prep and drape formal time out perforemed, observed khari incision and drainge of dorsum of right hand anfd forearm abscess irrigation and steriel dressing applied
--- NOTE | 2018-11-25 10:21 | CONS ---
INFECTIOUS DISEASE CONSULTATION DATE OF CONSULTATION: DATE OF DICTATION: 11/25/2018 HISTORY: The patient is an 83-year-old female who was evaluated for cellulitis of the right upper extremity. She was admitted to the hospital on November 23, 2018, after an apparent fall. She was found on the floor by her granddaughter. She was noted to have erythema and swelling of the right hand and right forearm as well as multiple scratches and cat bites. She was evaluated in the emergency room where she was noted to have a puncture wound over the 2nd MCP joint. Pus was expressed from that area. She was empirically treated with vancomycin and Zosyn. The patient suffers from mild dementia. She is unable to offer any additional details. According to the daughter, the patient has a cat at home and has sustained scratches and bites to her extremities. The cat is apparently up to date with respect to vaccines. She at the present time is awake and alert. She has complaints of right hand and forearm pain. Her white blood cell count was noted to be elevated at 20,000. PAST MEDICAL HISTORY: Positive for dementia, hypertension, seizure disorder, hypothyroidism. PAST SURGICAL HISTORY: Status post small-bowel obstruction. MEDICATIONS: Include Zosyn, vancomycin, Tylenol, Aricept, Lexapro, hydrochlorothiazide, Cozaar. SOCIAL HISTORY: She resides in the community. She is a nonsmoker, nondrinker. No recent hospitalizations. SYSTEMS REVIEW: Neurologic: Positive for mild dementia. Cardiac: Negative chest pain or palpitations. Respiratory: Negative cough or sputum production. Gastrointestinal: Negative vomiting or diarrhea. Genitourinary: Negative for urinary tract infection. LABORATORY DATA: White count on admission 20,000, presently 13, hematocrit 33.2, platelet count 165, creatinine 1.1. Urinalysis 2 white cells. Blood cultures, no growth. PHYSICAL EXAMINATION: General: On exam, she is awake and alert. She is not acutely toxic appearing. Vital Signs: Temperature 97.2, blood pressure 102/55, pulse 67 regular, respirations 18 per minute. HEENT: Sclerae anicteric. Heart: Sounds S1, S2. Lungs: Clear bilaterally. Abdomen: Soft, nontender. Extremities: Negative for pedal edema. Examination of the right upper extremity, there is swelling of the dorsum of the right hand as well as the right index finger. There appears to be puncture wounds present on the dorsal aspect of the right hand in the vicinity of the MCP joint. There is swelling extending to the forearm as well as erythema extending up the extensor aspect of the forearm. No epitrochlear adenopathy. Positive right axillary lymph node. IMPRESSION: 1. Cellulitis of the right upper extremity. 2. Status post cat scratch. 3. Leukocytosis, rule out sepsis secondary to skin source. PLAN: Await cultures. Empiric antibiotic coverage with Unasyn and vancomycin. Elevation. Hand surgery evaluation. Thank you for the kind referral. BRIAN KATZ M.D. [id number]
--- NOTE | 2018-11-25 10:29 | PN ---
Physical Exam: SUBJECTIVE: Patient seen and examined at bedside this morning. Patient in no acute distress. No overnight events. OBJECTIVE: Vital Signs Period Temp Pulse Resp BP Sys/Swanson Pulse Ox Last 24 Hr 97.3 F-98.3 F 62-72 15-20 127-137/53-70 98-98 GENERAL: The patient is awake, alert, oriented to person, in no acute distress. HEAD: Normocephalic, atraumatic EYES: PERRL, extraocular movements intact, sclera anicteric, conjunctiva clear ENT: Oropharynx clear without exudates, moist mucous membranes. NECK: Supple, without lymphadenopathy LUNGS: Breath sounds equal, clear to auscultation bilaterally, no wheezes, no crackles. HEART: Regular rate and rhythm, S1, S2 without murmur, rub or gallop. ABDOMEN: Soft, nontender, nondistended, normoactive bowel sounds, no guarding, no rebound, no hepatosplenomegaly. EXTREMITIES: 2+ radial, dorsalis pedis pulses bilaterally. Right hand edematous (improving) with erythema. Abrasions on posterior forearm noted. NEUROLOGICAL: Cranial nerves II through XII grossly intact. Normal speech. PSYCH: Normal mood, normal affect. Laboratory Results - last 24 hr 11/25/18 11/25/18 07:07 07:07 WBC 7.7 RBC 3.39 L Hgb 11.3 Hct 32.3 L MCV 95.4 MCH 33.3 MCHC 34.9 RDW 12.6 Plt Count 162 MPV 9.9 Absolute Neuts (auto) 6.1 Neutrophils % 79.0 Lymphocytes % 11.5 D Monocytes % 8.2 Eosinophils % 1.0 D Basophils % 0.3 Nucleated RBC % 0 Sodium 143 Potassium 3.7 Chloride 111 H Carbon Dioxide 27 Anion Gap 5 L BUN 14.6 Creatinine 0.9 Est GFR (CKD-EPI)AfAm 69.01 Est GFR (CKD-EPI)NonAf 59.55 Random Glucose 93 Calcium 8.6 Magnesium 2.0 TSH 0.35 L Free T4 1.28 Active Medications Generic Name Dose Route Start Last Admin Trade Name Freq PRN Reason Stop Dose Admin Acetaminophen 650 mg 11/24/18 20:23 Tylenol - PO Q6H PRN PAIN LEVEL 4 - 6 Donepezil HCl 5 mg 11/25/18 10:00 11/25/18 10:03 Aricept - PO 5 mg DAILY [facility] Administration Escitalopram Oxalate 20 mg 11/24/18 17:50 11/25/18 10:03 Lexapro - PO 20 mg DAILY [facility] Administration Heparin Sodium (Porcine) 5,000 unit 11/25/18 10:00 11/25/18 10:03 Heparin - SQ 5,000 unit BID [facility] Administration Hydrochlorothiazide 12.5 mg 11/25/18 10:00 11/25/18 10:03 Hctz - PO 12.5 mg DAILY [facility] Administration Vancomycin HCl 1,000 mg in 250 mls @ 200 mls/hr 11/24/18 15:00 11/24/18 15:12 Vancomycin (Pre-Docked) IVPB 200 mls/hr Q24H [facility] Administration Protocol Ampicillin Sodium/Sulbactam 100 mls @ 200 mls/hr 11/24/18 15:45 11/25/18 10: 04 Sodium 1.5 gm/ Sodium Chloride IVPB 200 mls/hr Q6H-IV [facility] Administration Sodium Chloride 1,000 mls @ 75 mls/hr 11/25/18 07:50 Normal Saline - IV ASDIR [facility] Losartan Potassium 100 mg 11/25/18 10:00 11/25/18 10:03 Cozaar - PO 100 mg DAILY [facility] Administration ASSESSMENT/PLAN: Patient is an 83 year old female with history of dementia, seizures, past stroke , hypertension, hypothyroidism admitted for right upper extremity cellulitis, and syncopal episode. Right upper extremity cellulitis -Erythema and swelling improving. -WBC 7.7 today. Afebrile. Puncture wound and abrasions consistent with cat bite and/or scratches. -Unasyn and Vancomycin (day #2) -Hand surgery recommendations (Dr. Vega) appreciated. Patient is s/p incision and drainage 11/25. -ID recommendations (Dr. Hung) appreciated. Syncopal episode -CT head and cervical spine negative for acute processes. -EKG showed non-specific T wave changes. -Sarotid doppler negative for hemodynamically significant stenosis bilaterally -Transthoracic cardiac ECHO reveals ejection fraction 60-65%, mild MR, mild TR , mild aortic sclerosis, mild AR -Cardiology recommendations (Dr. Sommer) appreciated. Patient will require stress test nonurgently. Hypothyroidism -TSH 0.19 -Synthroid changed to 100mcg PO daily -Patient will follow up thyroid function testing as outpatient. History of CVA -Ct head reveals chronic left basal ganglia infarct. Stable. -Aspirin 81mg PO daily initiated Hyopertension -Continue home Losartan-HCTZ History of dementia -Continue home Aricept 5mg PO daily -Continue home Lexapro 20mkg PO daily FEN -No IV fluids indicated. -Within normal limits. Follow CMP, replete as necessary -Regular diet Prophylaxis -Heparin 5000units subq TID Disposition -Continue IV antibiotics and cardiac monitoring on Telemetry floor Visit type - Emergency Visit Emergency Visit: Yes ED Registration Date: 11/23/18 Care time: The patient presented to the Emergency Department on the above date and was hospitalized for further evaluation of their emergent condition. - New Patient This patient is new to me today: Yes Date on this admission: 11/25/18 - Critical Care Critical Care patient: No - Discharge Referral Referred to [facility] No ATTENDING PHYSICIAN STATEMENT I saw and evaluated the patient. I reviewed the resident's note and discussed the case with the resident. I agree with the resident's findings and plan as documented. SUBJECTIVE: OBJECTIVE: ASSESSMENT AND PLAN:
--- NOTE | 2018-11-25 11:10 | PN ---
Teaching Attending Note Name of Resident: Rocky Lyn ATTENDING PHYSICIAN STATEMENT I saw and evaluated the patient. I reviewed the resident's note and discussed the case with the resident. I agree with the resident's findings and plan as documented. SUBJECTIVE: Ongoing R hand erythema/tenderness. Recent fall/lightheadedness. No CP/palpitations. No fever/chills. OBJECTIVE: Afebrile, hemodynamically Stable. Appears frail. Last Vital Signs Temp Pulse Resp BP Pulse Ox 97.8 F 68 20 130/61 98 11/25/18 09:00 11/25/18 09:00 11/25/18 09:00 11/25/18 09:00 11/25/18 09:00 Heart - S1, S2, RRR Lungs - clear to auscultation Abdomen - Soft, non-tender. Bowel Sounds normal. Extremities - R hand erythema on dorsal aspect, extends along dorsal aspect of forearm, currently dressed s/p I and D by Surgery. Neuro - AAO x 2. Tone/Power normal all 4 extremities. Laboratory Results - last 24 hr 11/25/18 11/25/18 07:07 07:07 WBC 7.7 RBC 3.39 L Hgb 11.3 Hct 32.3 L MCV 95.4 MCH 33.3 MCHC 34.9 RDW 12.6 Plt Count 162 MPV 9.9 Absolute Neuts (auto) 6.1 Neutrophils % 79.0 Lymphocytes % 11.5 D Monocytes % 8.2 Eosinophils % 1.0 D Basophils % 0.3 Nucleated RBC % 0 Sodium 143 Potassium 3.7 Chloride 111 H Carbon Dioxide 27 Anion Gap 5 L BUN 14.6 Creatinine 0.9 Est GFR (CKD-EPI)AfAm 69.01 Est GFR (CKD-EPI)NonAf 59.55 Random Glucose 93 Calcium 8.6 Magnesium 2.0 TSH 0.35 L Free T4 1.28 Current Medications Generic Name Dose Route Start Last Admin Trade Name Freq PRN Reason Stop Dose Admin Acetaminophen 650 mg 11/24/18 20:23 Tylenol - PO Q6H PRN PAIN LEVEL 4 - 6 Donepezil HCl 5 mg 11/25/18 10:00 11/25/18 10:03 Aricept - PO 5 mg DAILY EUGENE Administration Escitalopram Oxalate 20 mg 11/24/18 17:50 11/25/18 10:03 Lexapro - PO 20 mg DAILY EUGENE Administration Heparin Sodium (Porcine) 5,000 unit 11/25/18 10:00 11/25/18 10:03 Heparin - SQ 5,000 unit BID EUGENE Administration Hydrochlorothiazide 12.5 mg 11/25/18 10:00 11/25/18 10:03 Hctz - PO 12.5 mg DAILY EUGENE Administration Vancomycin HCl 1,000 mg in 250 mls @ 200 mls/hr 11/24/18 15:00 11/24/18 15:12 Vancomycin (Pre-Docked) IVPB 200 mls/hr Q24H EUGENE Administration Protocol Ampicillin Sodium/Sulbactam 100 mls @ 200 mls/hr 11/24/18 15:45 11/25/18 10: 04 Sodium 1.5 gm/ Sodium Chloride IVPB 200 mls/hr Q6H-IV EUGENE Administration Sodium Chloride 1,000 mls @ 75 mls/hr 11/25/18 07:50 Normal Saline - IV ASDIR EUGENE Losartan Potassium 100 mg 11/25/18 10:00 11/25/18 10:03 Cozaar - PO 100 mg DAILY EUGENE Administration Home Medications Medication Instructions Recorded Losartan/Hydrochlorothiazide 1 each PO DAILY 11/23/18 [Hyzaar 100-12.5 Tablet] Donepezil HCl 5 mg PO ACHS 11/24/18 Escitalopram Oxalate [Lexapro -] 20 tab PO DAILY 11/24/18 ASSESSMENT AND PLAN: 83 year old female with history of Dementia, HTN, Hypothyroidism, Hx of Seizure Disorder, Hx CVA, found sitting on bathroom floor after an episode of dizziness/ lightheadedness - unclear whether she lost consciousness. History unclear re: head injury. No bladder/bowel incontinence. No tongue biting. Found to have R Hand/arm erythema/tenderness. 1. R Hand/Arm Cellulitis sec to cat scratch/bite s/p I and D by Surgery Afebrile, Hemodynamically Stable Leukocytosis resolved R Hand/arm X rays - no fracture/subluxation. Continue IV Unasyn/Vanco. ID following. Follow up Surgical Cx. 2. Possible Syncope/Incidental finding of Cerebrovascular Disease (Chronic) No Telemonitoring events. CT Head - No acute intracranial findings. Small chronic L basal ganglia infarct , present on prior studies. Carotid Duplex - no hemodynamically significant stenosis. Echo - no significant valvular disease, normal EF. Started on Aspirin. LDL 50/HDL 81/TG 44. Unclear utility of introducing statin given advanced age and frailty. Urine Cx negative. 3. ST Depressions inferolateral leads (old changes lateral leads, new changes I , II) Denies CP Serial Troponin measurements negative. Cardiology evaluated - recommends non-urgent stress test. 4. HTN - Continue Losartan/HCTZ. 5. Hypothyroidism - TSH 0.19. Levothyroxine dose decreased to 100mcg - for repeat TFTs in 4 weeks. 6. Dementia - AAO x 2. No behavioral disturbance. Continue Aricept and Lexapro. DVT Px - Heparin SQ
--- NOTE | 2018-11-25 11:12 | PN ---
Progress Note (short form) - Note Progress Note: s: no cp sob palps dizzy Current Medications Generic Name Dose Route Start Last Admin Trade Name Freq PRN Reason Stop Dose Admin Acetaminophen 650 mg 11/24/18 20:23 Tylenol - PO Q6H PRN PAIN LEVEL 4 - 6 Donepezil HCl 5 mg 11/25/18 10:00 11/25/18 10:03 Aricept - PO 5 mg DAILY EUGENE Administration Escitalopram Oxalate 20 mg 11/24/18 17:50 11/25/18 10:03 Lexapro - PO 20 mg DAILY EUGENE Administration Heparin Sodium (Porcine) 5,000 unit 11/25/18 10:00 11/25/18 10:03 Heparin - SQ 5,000 unit BID EUGENE Administration Hydrochlorothiazide 12.5 mg 11/25/18 10:00 11/25/18 10:03 Hctz - PO 12.5 mg DAILY EUGENE Administration Vancomycin HCl 1,000 mg in 250 mls @ 200 mls/hr 11/24/18 15:00 11/24/18 15:12 Vancomycin (Pre-Docked) IVPB 200 mls/hr Q24H EUGENE Administration Protocol Ampicillin Sodium/Sulbactam 100 mls @ 200 mls/hr 11/24/18 15:45 11/25/18 10: 04 Sodium 1.5 gm/ Sodium Chloride IVPB 200 mls/hr Q6H-IV EU[facility]E Administration Sodium Chloride 1,000 mls @ 75 mls/hr 11/25/18 07:50 Normal Saline - IV ASDIR EUGENE Losartan Potassium 100 mg 11/25/18 10:00 11/25/18 10:03 Cozaar - PO 100 mg DAILY EUGENE Administration Vital Signs Period Temp Pulse Resp BP Sys/Swanson Pulse Ox Last 24 Hr 97.3 F-98.3 F 62-72 15-20 127-137/53-70 98-98 Constitutional: Yes: No Distress, Calm Eyes: Yes: Conjunctiva Clear, EOM Intact Respiratory: Yes: CTA Bilaterally Gastrointestinal: Yes: Soft (NT) Cardiovascular: Yes: Regular Rate and Rhythm JVD: No Heart Sounds: Yes: S1, S2 Murmur: Yes: Systolic Murmur (2/6 RSB) Edema: no le edema Neurological: Yes: Alert Laboratory Last Values WBC 7.7 K/mm3 (4.0-10.0) 11/25/18 07:07 RBC 3.39 M/mm3 (3.60-5.2) L 11/25/18 07:07 Hgb 11.3 GM/dL (10.7-15.3) 11/25/18 07:07 Hct 32.3 % (32.4-45.2) L 11/25/18 07:07 MCV 95.4 fl (80-96) 11/25/18 07:07 MCH 33.3 pg (25.7-33.7) 11/25/18 07:07 MCHC 34.9 g/dl (32.0-36.0) 11/25/18 07:07 RDW 12.6 % (11.6-15.6) 11/25/18 07:07 Plt Count 162 K/MM3 (134-434) 11/25/18 07:07 MPV 9.9 fl (7.5-11.1) 11/25/18 07:07 Absolute Neuts (auto) 6.1 K/mm3 (1.5-8.0) 11/25/18 07:07 Neutrophils % 79.0 % (42.8-82.8) 11/25/18 07:07 Neutrophils % (Manual) 92.0 % (42.8-82.8) H 11/23/18 14:40 Band Neutrophils % 3.0 % 11/23/18 14:40 Lymphocytes % 11.5 % (8-40) D 11/25/18 07:07 Lymphocytes % (Manual) 3.0 % (8-40) L 11/23/18 14:40 Monocytes % 8.2 % (3.8-10.2) 11/25/18 07:07 Monocytes % (Manual) 2 % (3.8-10.2) L 11/23/18 14:40 Eosinophils % 1.0 % (0-4.5) D 11/25/18 07:07 Basophils % 0.3 % (0-2.0) 11/25/18 07:07 Nucleated RBC % 0 % (0-0) 11/25/18 07:07 Hypochromia 1+ 11/23/18 14:40 Platelet Estimate Normal 11/23/18 14:40 Anisocytosis 1+ 11/23/18 14:40 Macrocytosis 1+ 11/23/18 14:40 PT with INR 12.20 SEC (9.7-13.0) 11/23/18 14:40 INR 1.03 (0.83-1.09) 11/23/18 14:40 PTT (Actin FS) 26.4 SECONDS (25.2-36.5) 11/23/18 14:40 Sodium 143 mmol/L (136-145) 11/25/18 07:07 Potassium 3.7 mmol/L (3.5-5.1) 11/25/18 07:07 Chloride 111 mmol/L (98-107) H 11/25/18 07:07 Carbon Dioxide 27 mmol/L (21-32) 11/25/18 07:07 Anion Gap 5 MMOL/L (8-16) L 11/25/18 07:07 BUN 14.6 mg/dL (7-18) 11/25/18 07:07 Creatinine 0.9 mg/dL (0.55-1.3) 11/25/18 07:07 Est GFR (CKD-EPI)AfAm 69.01 11/25/18 07:07 Est GFR (CKD-EPI)NonAf 59.55 11/25/18 07:07 Random Glucose 93 mg/dL (74-106) 11/25/18 07:07 Lactic Acid 1.2 mmol/L (0.4-2.0) 11/23/18 14:40 Calcium 8.6 mg/dL (8.5-10.1) 11/25/18 07:07 Magnesium 2.0 mg/dL (1.8-2.4) 11/25/18 07:07 Total Bilirubin 1.0 mg/dL (0.2-1) 11/23/18 14:40 AST 20 U/L (15-37) 11/23/18 14:40 ALT 14 U/L (13-61) 11/23/18 14:40 Alkaline Phosphatase 67 U/L (45-117) 11/23/18 14:40 Troponin I < 0.02 ng/ml (0.00-0.05) 11/24/18 06:00 Total Protein 6.8 g/dl (6.4-8.2) 11/23/18 14:40 Albumin 3.6 g/dl (3.4-5.0) 11/23/18 14:40 Triglycerides 44 mg/dL (0-150) 11/24/18 06:00 Cholesterol 140 mg/dL (50-200) 11/24/18 06:00 Total LDL Cholesterol 50 mg/dL (5-100) 11/24/18 06:00 HDL Cholesterol 81 mg/dL (40-60) H 11/24/18 06:00 TSH 0.35 uIU/ml (0.358-3.74) L 11/25/18 07:07 Free T4 1.28 ng/dl (0.76-1.46) 11/25/18 07:07 Urine Color Yellow 11/23/18 15:52 Urine Appearance Clear 11/23/18 15:52 Urine pH 5.5 (5.0-8.0) 11/23/18 15:52 Ur Specific [place] 1.023 (1.010-1.035) 11/23/18 15:52 Urine Protein Negative (NEGATIVE) 11/23/18 15:52 Urine Glucose (UA) Negative (NEGATIVE) 11/23/18 15:52 Urine Ketones Trace (NEGATIVE) H 11/23/18 15:52 Urine Blood Negative (NEGATIVE) 11/23/18 15:52 Urine Nitrite Negative (NEGATIVE) 11/23/18 15:52 Urine Bilirubin Negative (NEGATIVE) 11/23/18 15:52 Urine Urobilinogen 0.2 mg/dL (0.2-1.0) 11/23/18 15:52 Ur Leukocyte Esterase 1+ (NEGATIVE) H 11/23/18 15:52 Urine WBC (Auto) 2 /hpf (0-5) 11/23/18 15:52 Urine RBC (Auto) 3 /hpf (0-4) 11/23/18 15:52 Urine Casts (Auto) 2 /lpf (0-8) 11/23/18 15:52 U Epithel Cells (Auto) 4.4 /HPF (0-5/HPF) 11/23/18 15:52 Urine Bacteria (Auto) 15.2 /hpf (NEGATIVE) 11/23/18 15:52 NSR 74bpm, TWI I, II, V3-V6 Echo 10/2018: nl lv/rv, mild mr, mild tr, mild ar, nl rvsp tele: sr Imaging - Results Chest X-ray: Image Reviewed Cat Scan: Report Reviewed Assessment/Plan IMP: 1. Right hand/arm cellulitis, possible cat bite? 2. Leukocytosis secondary to above. 3. Thyroid disorder 4. Fall: possible syncope vs seizure, unclear circumstances 5. Abnl ECG w/ nonspecific T wave changes: Nonspecific T wave changes may be seen in setting seizure. REC: 1. Cultures, abx as per PMD and ID. 2. Telemetry benign 3. Nonspecific T Wave changes on ECG (new in I, II, chronic in V3-V6), asx , with negative cardiac enzymes, no signs acs -echo unremarkable -trops negx3 -Non-urgent stress test recommended when acute infectious issues resolve 4. Consider Neuro eval 5. Check orthostatics. 6. Further management of thyroid disorder (note TSH) as per PMD.
[2018-11-25] MEDS: ASPIRIN COATED 81 MG TABLET.EC PO SCH (12:47)
--- NOTE | 2018-11-25 12:53 | PN ---
Progress Note, Physician History of Present Illness: OOB IN CHAIR S/P BEDSIDE I&D R HAND AND FOREARM CULTURE OBTAINED C/O PAIN/ SWELLING R HAND NO C/O FEVER/ CHILLS - Current Medication List Current Medications: Active Medications Acetaminophen (Tylenol -) 650 mg PO Q6H PRN PRN Reason: PAIN LEVEL 4 - 6 Aspirin (Ecotrin -) 81 mg PO DAILY [facility] Last Admin: 11/25/18 12:47 Dose: 81 mg Donepezil HCl (Aricept -) 5 mg PO DAILY [facility] Last Admin: 11/25/18 10:03 Dose: 5 mg Escitalopram Oxalate (Lexapro -) 20 mg PO DAILY [facility] Last Admin: 11/25/18 10:03 Dose: 20 mg Heparin Sodium (Porcine) (Heparin -) 5,000 unit SQ BID [facility] Last Admin: 11/25/18 10:03 Dose: 5,000 unit Hydrochlorothiazide (Hctz -) 12.5 mg PO DAILY [facility] Last Admin: 11/25/18 10:03 Dose: 12.5 mg Vancomycin HCl (Vancomycin (Pre-Docked)) 1,000 mg in 250 mls @ 200 mls/hr IVPB Q24H [facility]; Protocol Last Admin: 11/24/18 15:12 Dose: 200 mls/hr Ampicillin Sodium/Sulbactam (Sodium 1.5 gm/ Sodium Chloride) 100 mls @ 200 mls/ hr IVPB Q6H-IV [facility] Last Admin: 11/25/18 10:04 Dose: 200 mls/hr Losartan Potassium (Cozaar -) 100 mg PO DAILY [facility] Last Admin: 11/25/18 10:03 Dose: 100 mg - Objective Vital Signs: Vital Signs Temperature 97.8 F 11/25/18 09:00 Pulse Rate 68 11/25/18 09:00 Respiratory Rate 20 11/25/18 09:00 Blood Pressure 130/61 11/25/18 09:00 O2 Sat by Pulse Oximetry (%) 98 11/25/18 09:00 Constitutional: Yes: No Distress Cardiovascular: Yes: Regular Rate and Rhythm, S1, S2 Respiratory: Yes: Rhonchi Gastrointestinal: Yes: Normal Bowel Sounds, Soft. No: Tenderness Extremities: Yes: Other (+ SWELLING DORSUM R HAND, R INDEX FINGER ERYTHEMA R FOREARM) Labs: CBC, BMP 11/25/18 07:07 11/25/18 07:07 INR, PTT INR 1.03 (0.83-1.09) 11/23/18 14:40 Assessment/Plan CELLULITIS R HAND/ FOREARM S/P I&D ST ABSCESS S/P CAT BITE/ SCRATCH LEUKOCYTOSIS RESOLVED AWAIT C/S CONTINUE ALANNAHSYN/ KERA
[2018-11-25] MEDS: VANCOMYCIN 1 GRAM (PRE-DOCKED) 1,000 MG/250 ML BAG IVPB SCH (14:35)
[2018-11-26] MEDS ORDERED: AMPICILLIN NA/SULBACTAM NA 1.5 GM VIAL ONE ×4 (03:05→20:32)
[2018-11-26] MEDS ORDERED: SODIUM CHLORIDE 100 ML IVPB ONE ×4 (03:06→20:32)
[2018-11-26] MEDS: AMPICILLIN NA/SULBACTAM NA 1.5 GM in SODIUM CHLORIDE 100 ML IVPB SCH ×4 (03:07→20:56)
[2018-11-26] MEDS: LEVOTHYROXINE NA 100 MCG TABLET (FP) PO SCH (06:34)
[2018-11-26 07:11] LABS: HEMATOCRIT 32.3 % (32.4-45.2); HEMOGLOBIN 11.3 GM/dL (10.7-15.3); MCH 33.2 pg (25.7-33.7); MCHC 34.9 g/dl (32.0-36.0); MEAN CELL VOLUME 95.3 fl (80-96); MEAN PLT VOLUME 9.8 fl (7.5-11.1); PLATELET COUNT 182 K/MM3 (134-434); RBC 3.39 M/mm3 (3.60-5.2); RDW 12.5 % (11.6-15.6)
[2018-11-26 07:44] LABS: CALCIUM 8.8 mg/dL (8.5-10.1); CREATININE 0.9 mg/dL (0.55-1.3); MAGNESIUM 2.1 mg/dL (1.8-2.4); PHOSPHOROUS 3.2 mg/dL (2.5-4.9); POTASSIUM 3.7 mmol/L (3.5-5.1)
--- NOTE | 2018-11-26 11:01 | PN ---
Progress Note (short form) - Note Progress Note: s: no cp sob palps dizzy Current Medications Generic Name Dose Route Start Last Admin Trade Name Freq PRN Reason Stop Dose Admin Acetaminophen 650 mg 11/24/18 20:23 Tylenol - PO Q6H PRN PAIN LEVEL 4 - 6 Aspirin 81 mg 11/25/18 11:15 11/25/18 12:47 Ecotrin - PO 81 mg DAILY EUGENE Administration Donepezil HCl 5 mg 11/25/18 10:00 11/25/18 10:03 Aricept - PO 5 mg DAILY EUGENE Administration Escitalopram Oxalate 20 mg 11/24/18 17:50 11/25/18 10:03 Lexapro - PO 20 mg DAILY EUGENE Administration Heparin Sodium (Porcine) 5,000 unit 11/25/18 10:00 11/25/18 22:43 Heparin - SQ 5,000 unit BID EUGENE Administration Hydrochlorothiazide 12.5 mg 11/25/18 10:00 11/25/18 10:03 Hctz - PO 12.5 mg DAILY EUGENE Administration Vancomycin HCl 1,000 mg in 250 mls @ 200 mls/hr 11/24/18 15:00 11/25/18 14:35 Vancomycin (Pre-Docked) IVPB 200 mls/hr Q24H EUGENE Administration Protocol Ampicillin Sodium/Sulbactam 100 mls @ 200 mls/hr 11/24/18 15:45 11/26/18 03: 07 Sodium 1.5 gm/ Sodium Chloride IVPB 200 mls/hr Q6H-IV EUGENE Administration Levothyroxine Sodium 100 mcg 11/26/18 07:00 11/26/18 06:34 Synthroid - PO 100 mcg DAILY@0700 EUGENE Administration Losartan Potassium 100 mg 11/25/18 10:00 11/25/18 10:03 Cozaar - PO 100 mg DAILY EUGENE Administration Vital Signs Period Temp Pulse Resp BP Sys/Swanson Pulse Ox Last 24 Hr 97.8 F-98.2 F 63-68 20-20 122-154/64-72 100 Constitutional: Yes: No Distress, Calm Eyes: Yes: Conjunctiva Clear, EOM Intact Respiratory: Yes: CTA Bilaterally Gastrointestinal: Yes: Soft (NT) Cardiovascular: Yes: Regular Rate and Rhythm JVD: No Heart Sounds: Yes: S1, S2 Murmur: Yes: Systolic Murmur (2/6 RSB) Edema: no le edema Neurological: Yes: Alert CBC, BMP 11/26/18 06:26 11/26/18 06:26 NSR 74bpm, TWI I, II, V3-V6 Echo 10/2018: nl lv/rv, mild mr, mild tr, mild ar, nl rvsp tele: sr Imaging - Results Chest X-ray: Image Reviewed Cat Scan: Report Reviewed Assessment/Plan IMP: 1. Right hand/arm cellulitis, possible cat bite? 2. Leukocytosis secondary to above. 3. Thyroid disorder 4. Fall: possible syncope vs seizure, unclear circumstances 5. Abnl ECG w/ nonspecific T wave changes: Nonspecific T wave changes may be seen in setting seizure. REC: 1. Cultures, abx as per PMD and ID. 2. Telemetry benign 3. Nonspecific T Wave changes on ECG (new in I, II, chronic in V3-V6), asx , with negative cardiac enzymes, no signs acs -echo unremarkable -trops negx3 -Non-urgent stress test recommended when acute infectious issues resolve 4. Consider Neuro eval 5. Check orthostatics. 6. Further management of thyroid disorder (note TSH) as per PMD. dc tele
--- NOTE | 2018-11-26 11:12 | PN ---
Progress Note (short form) - Note Progress Note: SUBJECTIVE: Ongoing R hand erythema/tenderness. Feels well. No CP/palpitations. No fever/chills. OBJECTIVE: Afebrile, hemodynamically Stable. Last Vital Signs Temp Pulse Resp BP Pulse Ox 97.8 F 63 20 154/70 100 11/26/18 06:00 11/26/18 06:00 11/26/18 06:00 11/26/18 06:00 11/25/18 21:00 Heart - S1, S2, RRR Lungs - clear to auscultation Abdomen - Soft, non-tender. Bowel Sounds normal. Extremities - R hand erythema on dorsal aspect, extends along dorsal aspect of forearm, currently dressed s/p I and D by Surgery. Neuro - AAO x 2. Tone/Power normal all 4 extremities. Laboratory Results - last 24 hr 11/26/18 11/26/18 06:26 06:26 WBC 5.0 RBC 3.39 L Hgb 11.3 Hct 32.3 L MCV 95.3 MCH 33.2 MCHC 34.9 RDW 12.5 Plt Count 182 MPV 9.8 Sodium 142 Potassium 3.7 Chloride 110 H Carbon Dioxide 27 Anion Gap 5 L BUN 11.0 Creatinine 0.9 Est GFR (CKD-EPI)AfAm 69.01 Est GFR (CKD-EPI)NonAf 59.55 Random Glucose 89 Calcium 8.8 Phosphorus 3.2 Magnesium 2.1 Current Medications Generic Name Dose Route Start Last Admin Trade Name Freq PRN Reason Stop Dose Admin Acetaminophen 650 mg 11/24/18 20:23 Tylenol - PO Q6H PRN PAIN LEVEL 4 - 6 Aspirin 81 mg 11/25/18 11:15 11/25/18 12:47 Ecotrin - PO 81 mg DAILY [facility] Administration Donepezil HCl 5 mg 11/25/18 10:00 11/25/18 10:03 Aricept - PO 5 mg DAILY EU[facility] Administration Escitalopram Oxalate 20 mg 11/24/18 17:50 11/25/18 10:03 Lexapro - PO 20 mg DAILY EU[facility]E Administration Heparin Sodium (Porcine) 5,000 unit 11/25/18 10:00 11/25/18 22:43 Heparin - SQ 5,000 unit BID EUGENE Administration Hydrochlorothiazide 12.5 mg 11/25/18 10:00 11/25/18 10:03 Hctz - PO 12.5 mg DAILY EU[facility]E Administration Vancomycin HCl 1,000 mg in 250 mls @ 200 mls/hr 11/24/18 15:00 11/25/18 14:35 Vancomycin (Pre-Docked) IVPB 200 mls/hr Q24H EUGENE Administration Protocol Ampicillin Sodium/Sulbactam 100 mls @ 200 mls/hr 11/24/18 15:45 11/26/18 03: 07 Sodium 1.5 gm/ Sodium Chloride IVPB 200 mls/hr Q6H-IV [facility] Administration Levothyroxine Sodium 100 mcg 11/26/18 07:00 11/26/18 06:34 Synthroid - PO 100 mcg DAILY@0700 EUGENE Administration Losartan Potassium 100 mg 11/25/18 10:00 11/25/18 10:03 Cozaar - PO 100 mg DAILY [facility] Administration Home Medications Medication Instructions Recorded Losartan/Hydrochlorothiazide 1 each PO DAILY 11/23/18 [Hyzaar 100-12.5 Tablet] Donepezil HCl 5 mg PO ACHS 11/24/18 Escitalopram Oxalate [Lexapro -] 20 tab PO DAILY 11/24/18 ASSESSMENT AND PLAN: 83 year old female with history of Dementia, HTN, Hypothyroidism, Hx of Seizure Disorder, Hx CVA, found sitting on bathroom floor after an episode of dizziness/ lightheadedness - unclear whether she lost consciousness. History unclear re: head injury. No bladder/bowel incontinence. No tongue biting. Found to have R Hand/arm erythema/tenderness. 1. R Hand/Arm Cellulitis sec to cat scratch/bite s/p I and D by Surgery Afebrile, Hemodynamically Stable Leukocytosis resolved R Hand/arm X rays - no fracture/subluxation. Surgical Cx pending. Continue IV Unasyn/Vanco. ID following. 2. Possible Syncope/Incidental finding of Cerebrovascular Disease (Chronic) No Telemonitoring events. No residual neuro deficits. CT Head - No acute intracranial findings. Small chronic L basal ganglia infarct , present on prior studies. Carotid Duplex - no hemodynamically significant stenosis. Echo - no significant valvular disease, normal EF. Started on Aspirin. LDL 50/HDL 81/TG 44. Unclear utility of introducing statin given advanced age and frailty. Urine Cx negative. 3. ST Depressions inferolateral leads (old changes lateral leads, new changes I , II) Denies CP Serial Troponin measurements negative. Cardiology evaluated - recommends non-urgent stress test. 4. HTN - Continue Losartan/HCTZ. 5. Hypothyroidism - TSH 0.19. Levothyroxine dose decreased to 100mcg - for repeat TFTs in 4 weeks. 6. Dementia - AAO x 2. No behavioral disturbance. Continue Aricept and Lexapro. DVT Px - Heparin SQ Visit type - Emergency Visit Emergency Visit: Yes ED Registration Date: 11/23/18 Care time: The patient presented to the Emergency Department on the above date and was hospitalized for further evaluation of their emergent condition. - New Patient This patient is new to me today: No - Critical Care Critical Care patient: No - Discharge Referral Referred to [facility] Med P.C.: No
[2018-11-26] MEDS: ESCITALOPRAM OXALATE 10 MG TABLET (FP) PO SCH (11:25)
[2018-11-26] MEDS: DONEPEZIL HCL 5 MG TABLET (FP) PO SCH (11:25)
[2018-11-26] MEDS: LOSARTAN POTASSIUM 50 MG TABLET (FP) PO SCH (11:25)
[2018-11-26] MEDS: HYDROCHLOROTHIAZIDE 12.5 MG CAPSULE (FP) PO SCH (11:25)
[2018-11-26] MEDS: ASPIRIN COATED 81 MG TABLET.EC PO SCH (11:26)
[2018-11-26] MEDS: HEPARIN NA (PORCINE) 5,000 UNITS/ML 1ML VIAL SQ SCH ×2 (11:26→21:31)
[2018-11-26] MEDS: VANCOMYCIN 1 GRAM (PRE-DOCKED) 1,000 MG/250 ML BAG IVPB SCH (17:34)
[2018-11-27] MEDS ORDERED: SODIUM CHLORIDE 100 ML IVPB ONE ×3 (03:07→15:23)
[2018-11-27] MEDS ORDERED: AMPICILLIN NA/SULBACTAM NA 1.5 GM VIAL ONE ×3 (03:07→15:23)
[2018-11-27] MEDS: AMPICILLIN NA/SULBACTAM NA 1.5 GM in SODIUM CHLORIDE 100 ML IVPB SCH ×3 (03:14→15:26)
[2018-11-27] MEDS: LEVOTHYROXINE NA 100 MCG TABLET (FP) PO SCH (06:24)
[2018-11-27] MEDS: LOSARTAN POTASSIUM 50 MG TABLET (FP) PO SCH (10:24)
[2018-11-27] MEDS: DONEPEZIL HCL 5 MG TABLET (FP) PO SCH (10:24)
[2018-11-27] MEDS: ESCITALOPRAM OXALATE 10 MG TABLET (FP) PO SCH (10:25)
[2018-11-27] MEDS: ASPIRIN COATED 81 MG TABLET.EC PO SCH (10:25)
[2018-11-27] MEDS: HYDROCHLOROTHIAZIDE 12.5 MG CAPSULE (FP) PO SCH (10:25)
[2018-11-27] MEDS: HEPARIN NA (PORCINE) 5,000 UNITS/ML 1ML VIAL SQ SCH (10:25)
--- NOTE | 2018-11-27 10:54 | PN ---
Progress Note, Physician History of Present Illness: 83 yo RHD female with PMH of seizure, CVA, HTN, and hypothyroidism who presents with right hand pain after being found on the bathroom floor by a family member about 9:00am this morning. He has been stable and improving the arm swelling compared to the previous day. - Current Medication List Current Medications: Active Medications Acetaminophen (Tylenol -) 650 mg PO Q6H PRN PRN Reason: PAIN LEVEL 4 - 6 Aspirin (Ecotrin -) 81 mg PO DAILY [facility] Last Admin: 11/27/18 10:25 Dose: 81 mg Donepezil HCl (Aricept -) 5 mg PO DAILY [facility] Last Admin: 11/27/18 10:24 Dose: 5 mg Escitalopram Oxalate (Lexapro -) 20 mg PO DAILY [facility] Last Admin: 11/27/18 10:25 Dose: 20 mg Heparin Sodium (Porcine) (Heparin -) 5,000 unit SQ BID [facility] Last Admin: 11/27/18 10:25 Dose: 5,000 unit Hydrochlorothiazide (Hctz -) 12.5 mg PO DAILY [facility] Last Admin: 11/27/18 10:25 Dose: 12.5 mg Vancomycin HCl (Vancomycin (Pre-Docked)) 1,000 mg in 250 mls @ 200 mls/hr IVPB Q24H [facility]; Protocol Last Admin: 11/26/18 17:34 Dose: 200 mls/hr Ampicillin Sodium/Sulbactam (Sodium 1.5 gm/ Sodium Chloride) 100 mls @ 200 mls/ hr IVPB Q6H-IV [facility] Last Admin: 11/27/18 10:23 Dose: 200 mls/hr Levothyroxine Sodium (Synthroid -) 100 mcg PO DAILY@0700 [facility] Last Admin: 11/27/18 06:24 Dose: 100 mcg Losartan Potassium (Cozaar -) 100 mg PO DAILY [facility] Last Admin: 11/27/18 10:24 Dose: 100 mg - Objective Vital Signs: Vital Signs Temperature 98.3 F 11/27/18 06:01 Pulse Rate 81 11/27/18 06:01 Respiratory Rate 18 11/27/18 06:01 Blood Pressure 146/66 11/27/18 06:01 O2 Sat by Pulse Oximetry (%) 100 11/27/18 08:17 Constitutional: Yes: Well Nourished, No Distress, Calm Eyes: Yes: Conjunctiva Clear, EOM Intact HENT: Yes: Atraumatic, Normocephalic Neck: Yes: Supple, Trachea Midline Cardiovascular: Yes: Regular Rate and Rhythm, S1, S2 Respiratory: Yes: Regular, CTA Bilaterally Gastrointestinal: Yes: Normal Bowel Sounds, Soft ...Rectal Exam: Yes: Deferred Genitourinary: No: CVA Tenderness - Left, CVA Tenderness - Right Musculoskeletal: No: Muscle Pain, Muscle Weakness Extremities: Yes: Erythema. No: Cool, Cyanosis Edema: Yes Edema: RUE: 2+ Peripheral Pulses WNL: No Peripheral Pulses: Left Radial: 2+, Right Radial: 2+, Left Doralis Pedis: 2+, Right Dorsalis Pedis: 2+, Left Femoral: 2+, Right Femoral: 2+ Integumentary: No: Jaundice, Rash Neurological: Yes: Alert, Oriented Psychiatric: Yes: Alert, Oriented Labs: CBC, BMP 11/26/18 06:26 11/26/18 06:26 INR, PTT INR 1.03 (0.83-1.09) 11/23/18 14:40 Problem List - Problems (1) Cellulitis of hand, right Assessment/Plan: 83 yo RHD female mmp with right hand and forearm cellulitis no acute surgical intervention is indicated resume diet broad spectrum iv antibotics (mrsa and pasturella coverage) id consult elevation of right arm above heart level physical therapy evaluation for ROM and edema management Code(s): L03.113 - CELLULITIS OF RIGHT UPPER LIMB (2) Animal bite Code(s): T14.8XXA - OTHER INJURY OF UNSPECIFIED BODY REGION, INITIAL ENCOUNTER (3) Anxiety associated with depression Code(s): F41.8 - OTHER SPECIFIED ANXIETY DISORDERS (4) Arthritis Code(s): M19.90 - UNSPECIFIED OSTEOARTHRITIS, UNSPECIFIED SITE (5) HTN (hypertension) Code(s): I10 - ESSENTIAL (PRIMARY) HYPERTENSION (6) Hypothyroid Code(s): E03.9 - HYPOTHYROIDISM, UNSPECIFIED Qualifiers: 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
--- NOTE | 2018-11-27 11:04 | PN ---
Progress Note (short form) - Note Progress Note: s: no cp sob palps dizzy Current Medications Generic Name Dose Route Start Last Admin Trade Name Freq PRN Reason Stop Dose Admin Acetaminophen 650 mg 11/24/18 20:23 Tylenol - PO Q6H PRN PAIN LEVEL 4 - 6 Aspirin 81 mg 11/25/18 11:15 11/27/18 10:25 Ecotrin - PO 81 mg DAILY EUGENE Administration Donepezil HCl 5 mg 11/25/18 10:00 11/27/18 10:24 Aricept - PO 5 mg DAILY EUGENE Administration Escitalopram Oxalate 20 mg 11/24/18 17:50 11/27/18 10:25 Lexapro - PO 20 mg DAILY EUGENE Administration Heparin Sodium (Porcine) 5,000 unit 11/25/18 10:00 11/27/18 10:25 Heparin - SQ 5,000 unit BID EUGENE Administration Hydrochlorothiazide 12.5 mg 11/25/18 10:00 11/27/18 10:25 Hctz - PO 12.5 mg DAILY EUGENE Administration Vancomycin HCl 1,000 mg in 250 mls @ 200 mls/hr 11/24/18 15:00 11/26/18 17:34 Vancomycin (Pre-Docked) IVPB 200 mls/hr Q24H EUGENE Administration Protocol Ampicillin Sodium/Sulbactam 100 mls @ 200 mls/hr 11/24/18 15:45 11/27/18 10: 23 Sodium 1.5 gm/ Sodium Chloride IVPB 200 mls/hr Q6H-IV EUGENE Administration Levothyroxine Sodium 100 mcg 11/26/18 07:00 11/27/18 06:24 Synthroid - PO 100 mcg DAILY@0700 EUGENE Administration Losartan Potassium 100 mg 11/25/18 10:00 11/27/18 10:24 Cozaar - PO 100 mg DAILY EUGENE Administration Vital Signs Period Temp Pulse Resp BP Sys/Swanson Pulse Ox Last 24 Hr 98.0 F-98.3 F 64-84 18-22 127-146/64-74 99-100 Constitutional: Yes: No Distress, Calm Eyes: Yes: Conjunctiva Clear, EOM Intact Respiratory: Yes: CTA Bilaterally Gastrointestinal: Yes: Soft (NT) Cardiovascular: Yes: Regular Rate and Rhythm JVD: No Heart Sounds: Yes: S1, S2 Murmur: Yes: Systolic Murmur (2/6 RSB) Edema: no le edema Neurological: Yes: Alert CBC, BMP 11/26/18 06:26 11/26/18 06:26 NSR 74bpm, TWI I, II, V3-V6 Echo 10/2018: nl lv/rv, mild mr, mild tr, mild ar, nl rvsp Imaging - Results Chest X-ray: Image Reviewed Cat Scan: Report Reviewed Assessment/Plan IMP: 1. Right hand/arm cellulitis, possible cat bite? 2. Leukocytosis secondary to above. 3. Thyroid disorder 4. Fall: possible syncope vs seizure, unclear circumstances 5. Abnl ECG w/ nonspecific T wave changes: Nonspecific T wave changes may be seen in setting seizure. REC: 1. Cultures, abx as per PMD and ID. 2. Telemetry benign 3. Nonspecific T Wave changes on ECG (new in I, II, chronic in V3-V6), asx , with negative cardiac enzymes, no signs acs -echo unremarkable -trops negx3 -Non-urgent stress test recommended when acute infectious issues resolve 4. Consider Neuro eval 5. Check orthostatics. 6. Further management of thyroid disorder (note TSH) as per PMD.
--- NOTE | 2018-11-27 14:20 | PN ---
Teaching Attending Note Name of Resident: Shannon Clemente ATTENDING PHYSICIAN STATEMENT I saw and evaluated the patient. I reviewed the resident's note and discussed the case with the resident. I agree with the resident's findings and plan as documented. SUBJECTIVE: Improvement in R hand erythema/tenderness. Feels well. No CP/ palpitations. No fever/chills. OBJECTIVE: Afebrile, hemodynamically Stable. Last Vital Signs Temp Pulse Resp BP Pulse Ox 98.1 F 75 18 135/78 100 11/27/18 14:03 11/27/18 14:03 11/27/18 14:11/27/18 14:03 11/27/18 08:17 Heart - S1, S2, RRR Lungs - clear to auscultation Abdomen - Soft, non-tender. Bowel Sounds normal. Extremities - R hand erythema on dorsal aspect and edema improved, extends along dorsal aspect of forearm, currently dressed s/p I and D by Surgery. Neuro - AAO x 2. Tone/Power normal all 4 extremities. Current Medications Generic Name Dose Route Start Last Admin Trade Name Freq PRN Reason Stop Dose Admin Acetaminophen 650 mg 11/24/18 20:23 Tylenol - PO Q6H PRN PAIN LEVEL 4 - 6 Aspirin 81 mg 11/25/18 11:15 11/27/18 10:25 Ecotrin - PO 81 mg DAILY EUGENE Administration Donepezil HCl 5 mg 11/25/18 10:00 11/27/18 10:24 Aricept - PO 5 mg DAILY EUGENE Administration Escitalopram Oxalate 20 mg 11/24/18 17:50 11/27/18 10:25 Lexapro - PO 20 mg DAILY EUGENE Administration Heparin Sodium (Porcine) 5,000 unit 11/25/18 10:00 11/27/18 10:25 Heparin - SQ 5,000 unit BID EUGENE Administration Hydrochlorothiazide 12.5 mg 11/25/18 10:11/27/18 10:25 Hctz - PO 12.5 mg DAILY EUGENE Administration Vancomycin HCl 1,000 mg in 250 mls @ 200 mls/hr 11/24/18 15:00 11/26/18 17:34 Vancomycin (Pre-Docked) IVPB 200 mls/hr Q24H EUGENE Administration Protocol Ampicillin Sodium/Sulbactam 100 mls @ 200 mls/hr 11/24/18 15:45 11/27/18 10: 23 Sodium 1.5 gm/ Sodium Chloride IVPB 200 mls/hr Q6H-IV EUGENE Administration Levothyroxine Sodium 100 mcg 11/26/18 07:00 11/27/18 06:24 Synthroid - PO 100 mcg DAILY@0700 EUGENE Administration Losartan Potassium 100 mg 11/25/18 10:00 11/27/18 10:24 Cozaar - PO 100 mg DAILY EUGENE Administration Home Medications Medication Instructions Recorded Losartan/Hydrochlorothiazide 1 each PO DAILY 11/23/18 [Hyzaar 100-12.5 Tablet] Donepezil HCl 5 mg PO ACHS 11/24/18 Escitalopram Oxalate [Lexapro -] 20 tab PO DAILY 11/24/18 ASSESSMENT AND PLAN: 83 year old female with history of Dementia, HTN, Hypothyroidism, Hx of Seizure Disorder, Hx CVA, found sitting on bathroom floor after an episode of dizziness/ lightheadedness - unclear whether she lost consciousness. History unclear re: head injury. No bladder/bowel incontinence. No tongue biting. Found to have R Hand/arm erythema/tenderness. 1. R Hand/Arm Cellulitis sec to cat scratch/bite s/p I and D by Surgery Afebrile, Hemodynamically Stable Leukocytosis resolved R Hand/arm X rays - no fracture/subluxation. Surgical Cx positive for Pasteurella multocida On IV Unasyn/Vanco - ID to guide further Abx therapy. Medically stable for discharge on oral Abx pending ID and Hand Sx clearance. 2. Possible Syncope/Incidental finding of Cerebrovascular Disease (Chronic) No Telemonitoring events. No residual neuro deficits. CT Head - No acute intracranial findings. Small chronic L basal ganglia infarct , present on prior studies. Carotid Duplex - no hemodynamically significant stenosis. Echo - no significant valvular disease, normal EF. Started on Aspirin. LDL 50/HDL 81/TG 44. Unclear utility of introducing statin given advanced age and frailty. Urine Cx negative. Neurology referral on discharge. 3. ST Depressions inferolateral leads (old changes lateral leads, new changes I , II) Denies CP Serial Troponin measurements negative. Cardiology evaluated - recommends non-urgent stress test - can follow as out- patient. 4. HTN - Continue Losartan/HCTZ. 5. Hypothyroidism - TSH 0.19. Levothyroxine dose decreased to 100mcg - for repeat TFTs in 4 weeks. 6. Dementia - AAO x 2. No behavioral disturbance. Continue Aricept and Lexapro. DVT Px - Heparin SQ
[2018-11-27] MEDS: VANCOMYCIN 1 GRAM (PRE-DOCKED) 1,000 MG/250 ML BAG IVPB SCH (15:26)
[2018-11-27] MEDS ORDERED: LACTOBACILLUS ACIDOPHILUS 1 TABLET PO SCH (16:30)
--- NOTE | 2018-11-27 16:48 | DS ---
Physical Exam: SUBJECTIVE: Patient seen and examined. She reports decreased pain and increased ROM of hand. She denies fever, chills, chest pain, nausea, or vomiting. Pt reports feeling better now that she is able to walk around. OBJECTIVE: Vital Signs Period Temp Pulse Resp BP Sys/Swanson Pulse Ox Last 24 Hr 98.0 F-98.3 F 61-84 17-22 127-146/64-81 99-100 PHYSICAL EXAM GENERAL: The patient is awake A/O x 2, in no acute distress. HEAD: Normal with no signs of trauma. EYES: PERRL, extraocular movements intact, sclera anicteric, conjunctiva clear. ENT: Ears normal, nares patent, moist mucous membranes. NECK: Trachea midline, full range of motion, supple. LUNGS: Breath sounds equal, clear to auscultation bilaterally, no wheezes, no crackles, no accessory muscle use. HEART: Regular rate and rhythm, S1, S2 without murmur, rub or gallop. ABDOMEN: Soft, nontender, nondistended, normoactive bowel sounds EXTREMITIES: 2+ pulses, warm, well-perfused, limited ROM of right wrist in flexion and extension, broommaker strength 4/5, dorsal surface of hand and arm tender to palpation, reduced erythema and swelling, no streaking erythema, small wound on dorsal surface of hand that is not draining, scab NEUROLOGICAL: Cranial nerves II through XII grossly intact. Normal speech, gait not observed. PSYCH: Normal mood, normal affect. SKIN: Warm, dry, normal turgor, no rashes or lesions noted. LABS CBC,CMP WBC 5.0 K/mm3 (4.0-10.0) 11/26/18 06:26 RBC 3.39 M/mm3 (3.60-5.2) L 11/26/18 06:26 Hgb 11.3 GM/dL (10.7-15.3) 11/26/18 06:26 Hct 32.3 % (32.4-45.2) L 11/26/18 06:26 MCV 95.3 fl (80-96) 11/26/18 06:26 MCH 33.2 pg (25.7-33.7) 11/26/18 06:26 MCHC 34.9 g/dl (32.0-36.0) 11/26/18 06:26 RDW 12.5 % (11.6-15.6) 11/26/18 06:26 Plt Count 182 K/MM3 (134-434) 11/26/18 06:26 MPV 9.8 fl (7.5-11.1) 11/26/18 06:26 Absolute Neuts (auto) 6.1 K/mm3 (1.5-8.0) 11/25/18 07:07 Neutrophils % 79.0 % (42.8-82.8) 11/25/18 07:07 Neutrophils % (Manual) 92.0 % (42.8-82.8) H 11/23/18 14:40 Band Neutrophils % 3.0 % 11/23/18 14:40 Lymphocytes % 11.5 % (8-40) D 11/25/18 07:07 Lymphocytes % (Manual) 3.0 % (8-40) L 11/23/18 14:40 Monocytes % 8.2 % (3.8-10.2) 11/25/18 07:07 Monocytes % (Manual) 2 % (3.8-10.2) L 11/23/18 14:40 Eosinophils % 1.0 % (0-4.5) D 11/25/18 07:07 Basophils % 0.3 % (0-2.0) 11/25/18 07:07 Nucleated RBC % 0 % (0-0) 11/25/18 07:07 Hypochromia 1+ 11/23/18 14:40 Platelet Estimate Normal 11/23/18 14:40 Anisocytosis 1+ 11/23/18 14:40 Macrocytosis 1+ 11/23/18 14:40 Sodium 142 mmol/L (136-145) 11/26/18 06:26 Potassium 3.7 mmol/L (3.5-5.1) 11/26/18 06:26 Chloride 110 mmol/L (98-107) H 11/26/18 06:26 Carbon Dioxide 27 mmol/L (21-32) 11/26/18 06:26 Anion Gap 5 MMOL/L (8-16) L 11/26/18 06:26 BUN 11.0 mg/dL (7-18) 11/26/18 06:26 Creatinine 0.9 mg/dL (0.55-1.3) 11/26/18 06:26 Est GFR (CKD-EPI)AfAm 69.01 11/26/18 06:26 Est GFR (CKD-EPI)NonAf 59.55 11/26/18 06:26 Random Glucose 89 mg/dL (74-106) 11/26/18 06:26 Lactic Acid 1.2 mmol/L (0.4-2.0) 11/23/18 14:40 Calcium 8.8 mg/dL (8.5-10.1) 11/26/18 06:26 Phosphorus 3.2 mg/dL (2.5-4.9) 11/26/18 06:26 Magnesium 2.1 mg/dL (1.8-2.4) 11/26/18 06:26 Total Bilirubin 1.0 mg/dL (0.2-1) 11/23/18 14:40 AST 20 U/L (15-37) 11/23/18 14:40 ALT 14 U/L (13-61) 11/23/18 14:40 Alkaline Phosphatase 67 U/L (45-117) 11/23/18 14:40 Troponin I < 0.02 ng/ml (0.00-0.05) 11/24/18 06:00 Total Protein 6.8 g/dl (6.4-8.2) 11/23/18 14:40 Albumin 3.6 g/dl (3.4-5.0) 11/23/18 14:40 Triglycerides 44 mg/dL (0-150) 11/24/18 06:00 Cholesterol 140 mg/dL (50-200) 11/24/18 06:00 Total LDL Cholesterol 50 mg/dL (5-100) 11/24/18 06:00 HDL Cholesterol 81 mg/dL (40-60) H 11/24/18 06:00 TSH 0.35 uIU/ml (0.358-3.74) L 11/25/18 07:07 Free T4 1.28 ng/dl (0.76-1.46) 11/25/18 07:07 HOSPITAL COURSE: Ms. Patterson is an 83yo female with HTN, dementia, and hypothyroidism who presented to the ED following an unwitnessed fall and right hand/arm erythema and swelling. She was unable to recall if she lost consciousness. Syncopal/ stroke workup was done--CT head negative for acute event but showed chronic small left basal ganglia infarct, echo normal EF, carotid dopplers negative for sclerosis. Pt was started on ASA. Outpt stress test recommended by cards. F/u recommended with neuro. Pt also had right hand/arm cellulitis 2/2 cat bite/scratch which was culture positive for Pasteurella. I&D done by surgery on hand. Pt received IV Vanc 4 days and Unasyn 4 days before being discharged on Augmentin 875mg BID x 10 days , per ID. Pt also found TSH 0.35. Instructed to f/u with PCP and repeat labs in one month. Date of Admission:11/23/18 Date of Discharge: 11/27/18 Minutes to complete discharge: 35 Discharge Summary Reason For Visit: BITE BY ANIMAL, CELLULITIS OF RIGHT HAND Current Active Problems Animal bite (Acute) Anxiety associated with depression (Acute) Cellulitis of hand, right (Acute) EKG abnormalities (Acute) Fall (Acute) HTN (hypertension) (Acute) Hypothyroid (Acute) Condition: Stable - Instructions Diet, Activity, Other Instructions: Hospital Stay: You were admitted to the hospital for a skin infection on your arm. You were given IV antibiotics and are doing better, so you will be able to continue your antibiotics at home. You had a procedure done to drain the infection as well. You were also admitted to the hospital because you had a fall and may have passed out. Your x-rays did not show you broke any bones when you fell. Your CT did not show you had a stroke at the time, but you may have had one in the past. Your heart ultrasound did not show any problems. It is pumping well. The ultrasound of your carotid arteries also did not show any blockages. Your thyroid levels were found to be lower than they should. You will need to follow up to manage it. Medications: You are being given antibiotics (Augmentin) to take twice a day for 10 days. It is important you take all the antibiotics to clear the infection. You are also being given probiotics to help you not get sick to your stomach on the antibiotics. You were started on a baby aspirin in the hospital. Take it once a day until you follow up with your regular doctor or cardiology. This is to help prevent a stroke or heart attack. You may continue all your regular home medications as prescribed. Follow Up: 1. You need to make a follow up appointment with the surgeon, Dr. Vega. Please call him tomorrow morning to make an appointment as soon as possible, so he can check you hand and arm again. 2. Please make a follow up appointment with the infectious disease doctor, Dr. Hung, in the next 1-2 weeks. He would like to see how you hand and arm are responding to the antibiotics. 3. Please make a follow up appointment with the doorkeeper, Dr. Stuart, in the next 1-2 weeks. You may need a stress test to complete your evaluation started in the hospital. 4. Please make a follow up appointment with the neurologist, Dr. Herrera, in the next 1-2 weeks. You may need more tests done. 4. Please make a follow up appointment with your primary care doctor, Dr. Villa in the next 3-4 weeks. You will need to discuss your thyroid condition and will need follow up blood work in one month to make sure it is properly being treated. Other Instructions: Please return to the nearest emergency room if you notice your arm is getting worse--increased redness, increased pain, or a lot of drainage. You should also return if you have a fever above 101, nausea and vomiting that do not improve with medications, chest pain, or pass out. Referrals: Maynor Hung MD [Staff Physician] - Antonio Stuart MD [Staff Physician] - Kaleb Herrera MD [Staff Physician] - Matteo Vega MD [Staff Physician] - Reyes Villa MD [Staff Physician] - Disposition: HOME - Home Medications Comprehensive Discharge Medication List: Ambulatory Orders Losartan/Hydrochlorothiazide [Hyzaar 100-12.5 Tablet] 1 each PO DAILY 11/23/18 Donepezil HCl 5 mg PO ACHS 11/24/18 Escitalopram Oxalate [Lexapro -] 20 tab PO DAILY 11/24/18 Amoxicillin/Potassium Clav [Augmentin 875-125 Tablet] 1 each PO BID 10 Days #20 tablet 11/27/18 Aspirin Coated [Ecotrin -] 81 mg PO DAILY 30 Days #30 tablet.ec 11/27/18 Lactobacillus Acidophilus [Bacid -] 1 each PO BID #20 capsule 11/27/18 This patient is new to me today: No Emergency Visit: Yes ED Registration Date: 08/29/19 Care time: The patient presented to the Emergency Department on the above date and was hospitalized for further evaluation of their emergent condition. Critical Care patient: No - Discharge Referral Referred to [facility] No ATTENDING PHYSICIAN STATEMENT I saw and evaluated the patient. I reviewed the resident's note and discussed the case with the resident. I agree with the resident's findings and plan as documented. SUBJECTIVE: OBJECTIVE: ASSESSMENT AND PLAN:
[2018-11-27 18:01] VITALS: BP 137/62; PULSE 65; TEMP 97.7
== END 2018-11-27 18:58 | disposition home or self-care (01) | DRG 603 ==
LOC: JER 12:39 → JERBED 16:34 → J6S 18:09 → J4W 20:34
PROC: 0J9K0ZX Drainage of Left Hand Subcutaneous Tissue and Fascia, Open Approach, Diagnostic (ICD-10-PCS; principal; 2018-11-25)
DX: L03.113 Cellulitis of right upper limb (principal); E03.9 Hypothyroidism, unspecified; F03.90 Unspecified dementia, unspecified severity, without behavioral disturbance, psychotic disturbance, mood disturbance, and anxiety; I10 Essential (primary) hypertension; S60.511A Abrasion of right hand, initial encounter; S61.451A Open bite of right hand, initial encounter; R56.9 Unspecified convulsions; M19.90 Unspecified osteoarthritis, unspecified site; F41.8 Other specified anxiety disorders; D72.829 Elevated white blood cell count, unspecified; R94.31 Abnormal electrocardiogram [ECG] [EKG]; F39 Unspecified mood [affective] disorder; W18.39XA Other fall on same level, initial encounter; Z86.73 Personal history of transient ischemic attack (TIA), and cerebral infarction without residual deficits; W55.01XA Bitten by cat, initial encounter; Y92.89 Other specified places as the place of occurrence of the external cause
CPT/HCPCS: 36415; 70450-TC; 71045-TC-FY; 72125-TC; 73090-TC-RT-FY; 73110-TC-RT-FY; 73130-TC-RT-FY; 80048; 80053; 80061; 81003; 83605; 83721; 83735; 84100; 84439; 84443; 84484; 85025; 85027; 85610; 85730; 87040; 87070; 87086; 87205; 90715; 93005; 93010; 93306-TC; 93880-TC; 97116-GP; 97161-GP; 99284-25; J1644; J7030

== ENCOUNTER 2019-04-01 11:43 | Observation (INO) | payer BC, OTHER ==
--- NOTE | 2019-04-01 12:12 | PDOC ---
History of Present Illness - General Chief Complaint: Weakness Stated Complaint: SHAKING/UNSTEADY GAIT Time Seen by Provider: 04/01/19 12:06 - History of Present Illness Initial Comments: HPI: 83yo F with PMH of HTN, hypothyroid, SBO presenting with unsteady gait and garbled speech. Daughter is at the bedside providing collateral history. Patient awoke this morning and got herself dressed. She ate a pastry for breakfast and felt nauseous afterwards with one episode of NBNB vomiting. Thereafter, the patient felt lightheaded especially when sitting/standing up but denied room-spinning dizziness. Around 10am, her grandson noticed that the patient seemed off in that her gait was unsteady and her speech was garbled. Patient's other daughter spoke with her on the phone and that daughter did not note anything unusual. The daughter at the bedside observed the patient with an unsteady gait and unclear speech shortly before noon: "she wasn't herself." Patient is usually very active and, while she has baseline "shakiness," ambulates without the assistance of a cane or walker. No fevers, chills, chest pain, or shortness of breath. PCP: Dr. Reyes Villa ROS: Constitutional: no fever, no chills HEENT: no throat pain, no dysphagia Cardiovascular: no chest pain, no palpitations Respiratory: no cough, no shortness of breath Gastrointestinal: no abdominal pain, +vomiting Genitourinary: no dysuria, no hematuria Musculoskeletal: no myalgia, no arthralgia Skin: no rash, no itching Neurologic: no headache, no weakness PE: General: Awake, alert, and fully oriented, in no acute distress Head: No signs of trauma Eyes: EOMI, sclera anicteric, droopy left eye (at baseline per patient and family member) ENT: Moist mucus membranes Neck: Normal ROM, supple Lungs: Lungs clear, Normal breath sounds Cardio: Regular rhythm, S1 and S2 present Abdomen: Soft, nontender Extremities: Normal range of motion, Distal pulses present SKIN: Warm, Dry, normal turgor Neurologic: Cranial nerves II through XII intact. Normal speech. Ambulates with steady gait. Please see NIHSS ED Course/MDM: DDX including but not limited to CVA, TIA, ACS, PE, UTI, anemia, metabolic derangement Labs, EKG, CXR NIHSS 0 Not a tpa candidate given mild severity of presentation 04/01/19 12:[address] head 04/01/19 13:11 CT Head as read by radiology: " EXAM#: TYPE/EXAM: RESULT: [id number] CT/HEAD CT (STROKE) Rule out stroke CT scan of the brain. A noncontrast CT scan of the brain was performed. Compared to prior CT scan of the head dated 11/23/2018 There is moderate volume loss and ventricular dilatation. Extensive periventricular chronic microvascular ischemic changes are present. No mass lesion, gross acute infarct or intracranial hemorrhage are identified. No extra-axial collection is seen. There is no shift of the midline structures. The craniocervical junction appears unremarkable. Visualized paranasal sinuses and mastoid air cells are well aerated. Minimum deviation of the nasal septum towards the left Calcification of the cavernous carotid arteries are noted. The calvarium is intact . Impression: Moderate atrophy and extensive periventricular chronic microvascular ischemic disease changes No CT evidence of gross acute infarct or intracranial hemorrhage are identified. Correlate clinically to determine further evaluation and follow-up. Case discussed with Dr. KARRIE MEJIA, caring attending physician Reported By: Liz Whaley MD 04/01/19 1258 " CXR as read by radiology: "EXAM#: TYPE/EXAM: RESULT: [id number] RAD/CHEST X-RAY PORTABLE* Chest: CVA. Cough. Single AP view of the chest reveals clear well aerated lungs, apical lordotic projection and a normal mediastinum. The angles are sharp. The bones and soft tissues are intact. Since 11/23/2018, there is no change of an adverse nature. Correlation recommended. Reported By: Mandeep Fabian MD 04/01/19 1258 " 04/01/19 13:14 EKG: rate 58, Qtc 455, sinus with twi in inferior/anterolateral distribution also present on EKG 11/23/18 04/01/19 13:24 Discussed case with neurosurgery, Dr. Mike méndez/mary ann presentation could be TIA MRI without contrast diffusion chest Recommends getting neurology on board 04/01/19 13:[address] Richardson 04/01/19 13:34 CBC WBC 5.5 K/mm3 (4.0-10.0) 04/01/19 12:45 RBC 3.73 M/mm3 (3.60-5.2) 04/01/19 12:45 Hgb 12.2 GM/dL (10.7-15.3) 04/01/19 12:45 Hct 35.9 % (32.4-45.2) 04/01/19 12:45 MCV 96.3 fl (80-96) H 04/01/19 12:45 MCH 32.7 pg (25.7-33.7) 04/01/19 12:45 MCHC 33.9 g/dl (32.0-36.0) 04/01/19 12:45 RDW 12.6 % (11.6-15.6) 04/01/19 12:45 Plt Count 220 K/MM3 (134-434) D 04/01/19 12:45 MPV 9.3 fl (7.5-11.1) 04/01/19 12:45 Absolute Neuts (auto) 4.8 K/mm3 (1.5-8.0) 04/01/19 12:45 Neutrophils % 86.5 % (42.8-82.8) H 04/01/19 12:45 Lymphocytes % 4.2 % (8-40) L D 04/01/19 12:45 Monocytes % 8.6 % (3.8-10.2) 04/01/19 12:45 Eosinophils % 0.3 % (0-4.5) 04/01/19 12:45 Basophils % 0.4 % (0-2.0) 04/01/19 12:45 Nucleated RBC % 0 % (0-0) 04/01/19 12:45 No leukocytosis CMP Sodium 141 mmol/L (136-145) 04/01/19 12:32 Potassium 3.7 mmol/L (3.5-5.1) 04/01/19 12:32 Chloride 108 mmol/L (98-107) H 04/01/19 12:32 Carbon Dioxide 24 mmol/L (21-32) 04/01/19 12:32 Anion Gap 10 MMOL/L (8-16) 04/01/19 12:32 BUN 25.0 mg/dL (7-18) H 04/01/19 12:32 Creatinine 1.1 mg/dL (0.55-1.3) 04/01/19 12:32 Est GFR (CKD-EPI)AfAm 54.15 04/01/19 12:32 Est GFR (CKD-EPI)NonAf 46.72 04/01/19 12:32 Random Glucose 127 mg/dL (74-106) H 04/01/19 12:32 Calcium 9.1 mg/dL (8.5-10.1) 04/01/19 12:32 Total Bilirubin 0.4 mg/dL (0.2-1) 04/01/19 12:32 AST 20 U/L (15-37) 04/01/19 12:32 ALT 16 U/L (13-61) 04/01/19 12:32 Alkaline Phosphatase 72 U/L (45-117) 04/01/19 12:32 Creatine Kinase 139 U/L (26-192) 04/01/19 12:32 Troponin I < 0.02 ng/ml (0.00-0.05) 04/01/19 12:32 Total Protein 6.9 g/dl (6.4-8.2) 04/01/19 12:32 Albumin 3.6 g/dl (3.4-5.0) 04/01/19 12:32 Triglycerides 62 mg/dL (0-150) 04/01/19 12:32 Cholesterol 168 mg/dL (50-200) 04/01/19 12:32 Total LDL Cholesterol 75 mg/dL (5-100) 04/01/19 12:32 HDL Cholesterol 73 mg/dL (40-60) H 04/01/19 12:32 Electrolytes unremarkable No transaminitis Tpn undetectable 04/01/19 13:41 Second page sent to Dr. Richardson via answering service 04/01/19 14:[address] Richardson Microblog sent to symphony team 04/01/19 14:[address] Monae who accepted patient for admission under himself tPA Exclusion Checklist 0-3hr - Time Elapsed Date last known well: 04/01/19 Time last known well: 10:00 Elaspsed time: 3 Day(s) and 5 Hour(s) and 45 Minutes - Thrombolytic Therapy Candidate Is the patient eligible for Thrombolytic Therapy?: No - Relative Exclusion Criteria 0-3h Rapid improvement: Yes Stroke severity too mild: Yes - Ineligibility reason(s) Reasons No tPA given: See reason(s) noted above NIH Stroke Scale - Last Known Well Date/Time & Onset Date Last Known Well: 04/01/19 Time Last Known Well: 10:00 - Initial Evaluation Level of consciousness: Alert Ask patient the month and their age: Answers both correctly Ask patient to open & close eyes; make fist and let go: Obeys both correctly Best gaze (horizontal eye movement): Normal Visual field testing: No visual field loss Facial paresis (Show teeth/raise eyebrows/close eyes tight): Normal symmetrical movement Motor Function: Left Arm: Normal Motor Function: Right Arm: Normal (extends arm 90 (or 45) degrees for 10 seconds without drift Motor Function: Left Leg: Normal (extends leg 30 degrees for 5 seconds without drift) Motor Function: Right Leg: Normal (extends leg 30 degrees for 5 seconds without drift) Limb Ataxia: No ataxia Sensory(Use pinprick test arms,legs,trunk,face/side to side): Normal Best language (Describe picture, name items, read sentences): No Aphasia Dysarthria (read several words): Normal articulation Extinction and Inattention: No abnormality - Total Score NIH Stroke Scale Score: 0 Past History - Past Medical History Allergies/Adverse Reactions: Allergies Allergy/AdvReac Type Severity Reaction Status Date / Time No Known Allergies Allergy Verified 04/01/19 11:50 Home Medications: Ambulatory Orders Losartan/Hydrochlorothiazide [Hyzaar 100-12.5 Tablet] 1 each PO DAILY 11/23/18 Donepezil HCl 10 mg PO DAILY 11/24/18 Escitalopram Oxalate [Lexapro -] 20 tab PO DAILY 11/24/18 Aspirin 81 mg PO DAILY 04/01/19 Levothyroxine [Synthroid -] 100 mcg PO DAILY 04/01/19 Ocuvite Eye Plus Multi Tablet 1 tab PO DAILY 04/01/19 Atorvastatin Ca [Lipitor] 20 mg PO HS #30 tablet 04/02/19 COPD: No GI Disorders: Yes (sbo) HTN: Yes Psychiatric Problems: Yes (anxiety) Seizures: Yes Thyroid Disease: Yes (hypo) - Surgical History Abdominal Surgery: Yes (resection s/p sbo) - Immunization History Immunization Up to Date: Yes - Psycho Social/Smoking Cessation Hx Smoking History: Never smoked Have you smoked in the past 12 months: No Hx Alcohol Use: No Drug/Substance Use Hx: No Substance Use Type: None *Physical Exam - Vital Signs Last Vital Signs Temp Pulse Resp BP Pulse Ox 97.5 F L 68 18 121/55 L 100 04/01/19 11:47 04/01/19 11:47 04/01/19 11:47 04/01/19 11:47 04/01/19 11:47 ED Treatment Course - LABORATORY CBC & Chemistry Diagram: 04/01/19 12:45 04/01/19 12:32 Discharge - Discharge Information Problems reviewed: Yes Clinical Impression/Diagnosis: Unsteady gait Speech abnormality Qualifiers: Speech disturbance type: slurred speech Qualified Code(s): R47.81 - Slurred speech Condition: Improved Disposition: HOME - Admission Yes - Follow up/Referral - Patient Discharge Instructions - Post Discharge Activity
[2019-04-01 13:01] LABS: BASO % 0.4 % (0-2.0); EOS % 0.3 % (0-4.5); HEMATOCRIT 35.9 % (32.4-45.2); HEMOGLOBIN 12.2 GM/dL (10.7-15.3); LYMPH % 4.2 % (8-40); MCH 32.7 pg (25.7-33.7); MCHC 33.9 g/dl (32.0-36.0); MEAN CELL VOLUME 96.3 fl (80-96); MEAN PLT VOLUME 9.3 fl (7.5-11.1); MONO % 8.6 % (3.8-10.2); NEUT % 86.5 % (42.8-82.8); PLATELET COUNT 220 K/MM3 (134-434); RBC 3.73 M/mm3 (3.60-5.2); RDW 12.6 % (11.6-15.6); WHITE BLOOD COUNT 5.5 K/mm3 (4.0-10.0)
[2019-04-01 13:14] LABS: HYALINE CASTS 6 /lpf (0-8); URINE APPEARANCE CLEAR; URINE BACTERIA 31.5 /hpf (NEGATIVE); URINE BILIRUBIN NEGATIVE (NEGATIVE); URINE COLOR YELLOW; URINE GLUCOSE (UA) NEGATIVE (NEGATIVE); URINE KETONE TRACE (NEGATIVE); URINE LEUK ESTERASE 1+ (NEGATIVE); URINE NITRITE NEGATIVE (NEGATIVE); URINE PROTEIN TRACE (NEGATIVE); URINE RBC 2 /hpf (0-4); URINE UROBILINOGEN 0.2 mg/dL (0.2-1.0); URINE WBC 3 /hpf (0-5)
[2019-04-01 13:16] LABS: INR 1.03 (0.83-1.09); PROTHROMBIN TIME (PATIENT) 12.1 SEC (9.7-13.0)
[2019-04-01 13:19] LABS: ACTIVATED PTT 25.8 SECONDS (25.2-36.5)
[2019-04-01 13:28] LABS: ALBUMIN 3.6 g/dl (3.4-5.0); ALK PHOS 72 U/L (45-117); ANION GAP 10 MMOL/L (8-16); BILIRUBIN,TOTAL 0.4 mg/dL (0.2-1); CALCIUM 9.1 mg/dL (8.5-10.1); CHLORIDE 108 mmol/L (98-107); CHOLESTEROL 168 mg/dL (50-200); CO2 24 mmol/L (21-32); CREATININE 1.1 mg/dL (0.55-1.3); GLUCOSE,RANDOM 127 mg/dL (74-106); HDL CHOLESTEROL 73 mg/dL (40-60); LDL CHOLESTEROL (ONLY SJRH) 75 mg/dL (5-100); POTASSIUM 3.7 mmol/L (3.5-5.1); SGOT/AST 20 U/L (15-37); SGPT/ALT 16 U/L (13-61); SODIUM 141 mmol/L (136-145); TOT PROT 6.9 g/dl (6.4-8.2); TRIGLYCERIDES 62 mg/dL (0-150)
[2019-04-01] MEDS: SODIUM CHLORIDE 1,000 ML IV SCH (13:39)
--- NOTE | 2019-04-01 14:25 | PDOC ---
Documentation entered by Amy Hairston SCRIBE, acting as scribe for Crystal Guzman MD. Crystal Guzman MD: This documentation has been prepared by the Marika carter Joy, SCRIBE, under my direction and personally reviewed by me in its entirety. I confirm that the documentation accurately reflects all work, treatment, procedures, and medical decision making performed by me. Attending Attestation - Resident Resident Name: Jennifer Pham - ED Attending Attestation I have performed the following: I have examined & evaluated the patient, The case was reviewed & discussed with the resident, I agree w/resident's findings & plan, Exceptions are as noted - HPI HPI: 04/01/19 14:16 Agree with resident HPI - Physicial Exam PE: 04/01/19 14:16 Agree with resident exam - Medical Decision Making 04/01/19 14:16 83-year-old female presents emergency department with resolved symptoms of garbled speech and unsteady gait. Vitals within normal limits. Exam with no neuro deficits, NIH stroke scale in the emergency department is 0. CT head with no acute findings PT not a TPA candidate 2/2 low NIHSS In light of episode of vomiting followed by garbled speech and unsteady gait, concern for TIA to posterior circulation. Dr. Richardson has been consulted Anticipate admission Heart Score/ECG Review #1 04/01/19 14:25 Twelve-lead EKG was performed and reviewed by me. Sinus bradycardia, rate 58. Normal axis. Diffuse T wave inversions. When compared to previous EKG, no significant changes.
--- NOTE | 2019-04-01 16:17 | CONSULT ---
Consult - text type - Consultation Consultation Note: NEUROLOGY CONSULTATION is greatly appreciated: Events reviewed and discussed with ED MD. Patient examined with daughter at the bedside who aides with hostory. This 83 yo RH woman lives upstairs from her daughter. PMH sig for HTN, Hypothyroidism, depression for which she receives Losartan/HCTZ ; Escitalopram 20; ASA 81; and Levothyroxine 100 mcg. At least 1 year of slowly progressive memory decline for which she sees Dr. Green and receives Donepezil 10 qd. This AM was is her USOH but developed nausea and vomiting after breakfast. She felt dizzy, unsteady, shaky and had slurred speech. The entire episode lasted 30 min and resolved. ROS sig for dull frontal and right sided MCNAMARA's x 1-2 months. -Visual changes. Denies prior headaches. Takes tylenol. + FH of migraines in daughter CT of head (reviewed): moderate, diffuse atrophy. Diffuse, periventicular microvascular changes. Calcified intracranial arteries. FRED: Neck supple. Cor reg. No bruits. Scattered scratches and punctate skin lesions attributed to "the cat." NEURO: Awake, alert. Fluent. Comprehension intact. Ox [facility], but No month, year or presidents.Recalls 0 of 3 at 3 mins. + Glabella. CN II-XII: Normal without nystagmus, normal tongue KACI's and gag Motor: No drift, tremor. Normal strength, bulk and tone. Normal reflexes. Toes downgoing. Coord: No FTN dysaxia Sensory: Normal Gait: Sl shuffle. IMP: Non-focal exam sig for moderate, B/L cerebral dysfunction (OMS/Chronic) c/ w Al;zheimer's disease. Etiology of this AM's events remains uncertain. Possible etiologies include TIIA, hypotension/arrythmia/labyrinthitis. Etiology of headache also unclear (although + FH of migraine). R/O Temporal Arteritis. SUGGEST: Admit to telemetry. Check orthostatic BP's Carotid duplex doppler. Check B12, TSH, RPR, ESR, CRP. R/O occult infection, cellulitis. Neuro F/U with Dr. Green in AM. Continue Donepezil 10 mg qAM unless bradyarrythmia is suspected. Thank you very much, Salvador Richardson MD
--- NOTE | 2019-04-01 16:56 | EKG ---
Test Reason : Blood Pressure : / mmHG Vent. Rate : 058 BPM Atrial Rate : 058 BPM P-R Int : 132 ms QRS Dur : 084 ms QT Int : 464 ms P-R-T Axes : 041 -06 248 degrees QTc Int : 455 ms SINUS BRADYCARDIA MINIMAL VOLTAGE CRITERIA FOR LVH, MAY BE NORMAL VARIANT SEPTAL INFARCT , AGE UNDETERMINED ABNORMAL ECG WHEN COMPARED WITH ECG OF 23-NOV-2018 14:09, NO SIGNIFICANT CHANGE WAS FOUND Confirmed by JAH WOODS, TASIA ([id number]) on 04/01/2019 4:56:29 PM Referred By: Confirmed By:TASIA TYSON MD
--- NOTE | 2019-04-01 17:46 | HP ---
CHIEF COMPLAINT: pre syncope or tia PCP:Dr paris HISTORY OF PRESENT ILLNESS: 83yo F with PMH of HTN, hypothyroid, SBO presenting with unsteady gait and garbled speech. . Patient awoke this morning and got herself dressed. She ate a pastry for breakfast and felt nauseous afterwards with one episode of NBNB vomiting. Thereafter, the patient felt lightheaded especially when sitting/ standing up but denied room-spinning dizziness. Around 10am, her grandson noticed that the patient seemed off in that her gait was unsteady and her speech was garbled. Patient's other daughter spoke with her on the phone and that daughter did not note anything unusual. The daughter at the bedside observed the patient with an unsteady gait and unclear speech shortly before noon: "she wasn't herself." Patient is usually very active and, while she has baseline "shakiness," ambulates without the assistance of a cane or walker. No fevers, chills, chest pain, or shortness of breath. In er she is already seen by neuro and work up has been ordered ER course was notable for: (1)no passing out (2)no siezure (3)normal ct head Recent Travel: none PAST MEDICAL HISTORY:htn, hypothyroid and sbo , dementia PAST SURGICAL HISTORY:doesnt remember Social History: no smoking alcohol and drug use Smoking: Alcohol: Drugs: Allergies No Known Allergies Allergy (Verified 04/01/19 11:50) HOME MEDICATIONS: Home Medications Medication Instructions Recorded Losartan/Hydrochlorothiazide 1 each PO DAILY 11/23/18 [Hyzaar 100-12.5 Tablet] Donepezil HCl 10 mg PO DAILY 11/24/18 Escitalopram Oxalate [Lexapro -] 20 tab PO DAILY 11/24/18 Aspirin 81 mg PO DAILY 04/01/19 Levothyroxine [Synthroid -] 100 mcg PO DAILY 04/01/19 Ocuvite Eye Plus Multi Tablet 1 tab PO DAILY 04/01/19 REVIEW OF SYSTEMS CONSTITUTIONAL: Absent: fever, chills, diaphoresis, generalized weakness, malaise, loss of appetite, weight change HEENT: Absent: rhinorrhea, nasal congestion, throat pain, throat swelling, difficulty swallowing, mouth swelling, ear pain, eye pain, visual changes CARDIOVASCULAR: Absent: chest pain, syncope, palpitations, irregular heart rate, lightheadedness , peripheral edema RESPIRATORY: Absent: cough, shortness of breath, dyspnea with exertion, orthopnea, wheezing, stridor, hemoptysis GASTROINTESTINAL: Absent: abdominal pain, abdominal distension, nausea, vomiting, diarrhea, constipation, melena, hematochezia GENITOURINARY: Absent: dysuria, frequency, urgency, hesitancy, hematuria, flank pain, genital pain MUSCULOSKELETAL: Absent: myalgia, arthralgia, joint swelling, back pain, neck pain SKIN: Absent: rash, itching, pallor HEMATOLOGIC/IMMUNOLOGIC: Absent: easy bleeding, easy bruising, lymphadenopathy, frequent infections ENDOCRINE: Absent: unexplained weight gain, unexplained weight loss, heat intolerance, cold intolerance NEUROLOGIC: Absent: headache, focal weakness or paresthesias, dizziness, present unsteady gait, but no seizure, mental status changes, bladder or bowel incontinence PSYCHIATRIC: Absent: anxiety, depression, suicidal or homicidal ideation, hallucinations. PHYSICAL EXAMINATION Vital Signs - 24 hr 04/01/19 04/01/19 04/01/19 11:45 11:47 15:29 Temperature 97.5 F L Pulse Rate 68 Pulse Rate [ 74 Apical] Respiratory 18 20 Rate Blood Pressure 121/55 L Blood Pressure 150/67 [Right Arm] O2 Sat by Pulse 99 100 98 Oximetry (%) GENERAL: Awake, alert, and fully oriented, in no acute distress. HEAD: Normal with no signs of trauma. EYES: Pupils equal, round and reactive to light, extraocular movements intact, sclera anicteric, conjunctiva clear. No lid lag. EARS, NOSE, THROAT: Ears normal, nares patent, oropharynx clear without exudates. Moist mucous membranes. NECK: Normal range of motion, supple without lymphadenopathy, JVD, or masses. LUNGS: Breath sounds equal, clear to auscultation bilaterally. No wheezes, and no crackles. No accessory muscle use. HEART: Regular rate and rhythm, normal S1 and S2 without murmur, rub or gallop. ABDOMEN: Soft, nontender, not distended, normoactive bowel sounds, no guarding, no rebound, no masses. No hepatomegaly or splenomegaly. MUSCULOSKELETAL: Normal range of motion at all joints. No bony deformities or tenderness. No CVA tenderness. UPPER EXTREMITIES: 2+ pulses, warm, well-perfused. No cyanosis. No clubbing. No peripheral edema. LOWER EXTREMITIES: 2+ pulses, warm, well-perfused. No calf tenderness. No peripheral edema. NEUROLOGICAL: Cranial nerves II-XII intact. Normal speech. Normal gait. SKIN: Warm, dry, normal turgor, no rashes or lesions noted, normal capillary refill. Laboratory Results - last 24 hr 04/01/19 04/01/19 04/01/19 12:32 12:32 12:45 WBC RBC Hgb Hct MCV MCH MCHC RDW Plt Count MPV Absolute Neuts (auto) Neutrophils % Lymphocytes % Monocytes % Eosinophils % Basophils % Nucleated RBC % PT with INR 12.10 INR 1.03 PTT (Actin FS) 25.8 Sodium 141 Potassium 3.7 Chloride 108 H Carbon Dioxide 24 Anion Gap 10 BUN 25.0 H Creatinine 1.1 Est GFR (CKD-EPI)AfAm 54.15 Est GFR (CKD-EPI)NonAf 46.72 Random Glucose 127 H Calcium 9.1 Total Bilirubin 0.4 AST 20 ALT 16 Alkaline Phosphatase 72 Creatine Kinase 139 Troponin I < 0.02 Total Protein 6.9 Albumin 3.6 Triglycerides 62 Cholesterol 168 Total LDL Cholesterol 75 HDL Cholesterol 73 H Urine Color Urine Appearance Urine pH Ur Specific [place] Urine Protein Urine Glucose (UA) Urine Ketones Urine Blood Urine Nitrite Urine Bilirubin Urine Urobilinogen Ur Leukocyte Esterase Urine WBC (Auto) Urine RBC (Auto) Urine Casts (Auto) U Epithel Cells (Auto) Urine Bacteria (Auto) Blood Type O POSITIVE Antibody Screen Negative 04/01/19 04/01/19 12:45 12:57 WBC 5.5 RBC 3.73 Hgb 12.2 Hct 35.9 MCV 96.3 H MCH 32.7 MCHC 33.9 RDW 12.6 Plt Count 220 D MPV 9.3 Absolute Neuts (auto) 4.8 Neutrophils % 86.5 H Lymphocytes % 4.2 L D Monocytes % 8.6 Eosinophils % 0.3 Basophils % 0.4 Nucleated RBC % 0 PT with INR INR PTT (Actin FS) Sodium Potassium Chloride Carbon Dioxide Anion Gap BUN Creatinine Est GFR (CKD-EPI)AfAm Est GFR (CKD-EPI)NonAf Random Glucose Calcium Total Bilirubin AST ALT Alkaline Phosphatase Creatine Kinase Troponin I Total Protein Albumin Triglycerides Cholesterol Total LDL Cholesterol HDL Cholesterol Urine Color Yellow Urine Appearance Clear Urine pH 5.0 Ur Specific [place] 1.022 Urine Protein Trace Urine Glucose (UA) Negative Urine Ketones Trace H Urine Blood Negative Urine Nitrite Negative Urine Bilirubin Negative Urine Urobilinogen 0.2 Ur Leukocyte Esterase 1+ H Urine WBC (Auto) 3 Urine RBC (Auto) 2 Urine Casts (Auto) 6 U Epithel Cells (Auto) 3.0 Urine Bacteria (Auto) 31.5 Blood Type Antibody Screen ct head and and cxr is normal ASSESSMENT/PLAN: r/o tia will do serial cardiac enymes, neuro consult, carotid sono start on aspirin Htn stable continue hyzar hypothyroidism renew levoth dementia continue aricept pt is already seen by neuroconsult and agree with the recommendations. Current Medications Aspirin (Asa -) 81 mg PO DAILY ON LICENSE OF [facility] Donepezil HCl (Aricept -) 10 mg PO DAILY ON LICENSE OF [facility] Escitalopram Oxalate (Lexapro -) 20 mg PO DAILY ON LICENSE OF [facility] Hydrochlorothiazide (Hctz -) 12.5 mg PO DAILY ON LICENSE OF [facility] Sodium Chloride (Normal Saline -) 1,000 mls @ 42 mls/hr IV ASDIR EUGENE Last Admin: 04/01/19 13:39 Dose: 42 mls/hr Levothyroxine Sodium (Synthroid -) 100 mcg PO ACBK EUGENE Losartan Potassium (Cozaar -) 100 mg PO DAILY ON LICENSE OF [facility] Multivitamins/Minerals (Theragran-M) 1 each PO DAILY ON LICENSE OF [facility] Visit type - Emergency Visit Emergency Visit: Yes ED Registration Date: 04/01/19 Care time: The patient presented to the Emergency Department on the above date and was hospitalized for further evaluation of their emergent condition. - New Patient This patient is new to me today: Yes Date on this admission: 04/01/19 - Critical Care Critical Care patient: No
[2019-04-01 21:19] VITALS: BMI 22.4
[2019-04-01] MEDS ORDERED: FLU VACCINE QUAD 60 MCG/0.5 ML (MDV 19-20) IM ONE (21:19)
[2019-04-02] MEDS ORDERED: LEVOTHYROXINE NA 100 MCG TABLET (FP) PO SCH (07:00)
[2019-04-02] MEDS ORDERED: DONEPEZIL HCL 10 MG TABLET (FP) PO SCH (10:00)
[2019-04-02] MEDS ORDERED: ENOXAPARIN NA (PORCINE) 40 MG/0.4 ML DISP.SYRIN SQ SCH (10:00)
[2019-04-02] MEDS ORDERED: LOSARTAN POTASSIUM 50 MG TABLET (FP) PO SCH (10:00)
[2019-04-02] MEDS ORDERED: ESCITALOPRAM OXALATE 20 MG TABLET (FP) PO SCH ×2 (10:00→12:45)
[2019-04-02] MEDS ORDERED: HYDROCHLOROTHIAZIDE 12.5 MG CAPSULE (FP) PO SCH (10:00)
[2019-04-02] MEDS ORDERED: MULTIVITAMINS THER W-MINERALS COMBO TABLET (FP) PO SCH (10:00)
[2019-04-02] MEDS ORDERED: PATIENT'S OWN MEDICATION (NON-FORMULARY) (Losartan/Hydrochlorothiazide [Hyzaar 100-12.5 Ta PO SCH (10:00)
[2019-04-02] MEDS ORDERED: ASPIRIN 81 MG CHEWABLE TABLETS PO SCH (10:00)
[2019-04-02] MEDS ORDERED: ASPIRIN 325 MG ENTERIC COATED TABLET (FP) PO SCH (13:15)
[2019-04-02] MEDS: SODIUM CHLORIDE 1,000 ML IV SCH (13:38)
--- NOTE | 2019-04-02 15:06 | PN ---
Physical Exam: SUBJECTIVE: Patient seen and examined OBJECTIVE: Vital Signs Period Temp Pulse Resp BP Sys/Swanson Pulse Ox Last 24 Hr 97.8 F-98.7 F 59-74 18-20 121-155/53-74 96-99 GENERAL: The patient is awake, alert, and fully oriented, in no acute distress. HEAD: Normal with no signs of trauma. EYES: PERRL, extraocular movements intact, sclera anicteric, conjunctiva clear. No ptosis. ENT: Ears normal, nares patent, oropharynx clear without exudates, moist mucous membranes. NECK: Trachea midline, full range of motion, supple. LUNGS: Breath sounds equal, clear to auscultation bilaterally, no wheezes, no crackles, no accessory muscle use. HEART: Regular rate and rhythm, S1, S2 without murmur, rub or gallop. ABDOMEN: Soft, nontender, nondistended, normoactive bowel sounds, no guarding, no rebound, no hepatosplenomegaly, no masses. EXTREMITIES: 2+ pulses, warm, well-perfused, no edema. NEUROLOGICAL: Cranial nerves II through XII grossly intact. Normal speech, gait not observed. PSYCH: Normal mood, normal affect. SKIN: Warm, dry, normal turgor, no rashes or lesions noted Laboratory Results - last 24 hr 04/01/19 04/01/19 04/01/19 12:32 12:45 18:52 ESR 12 Creatine Kinase Troponin I C-Reactive Protein < 0.3 Lipase Vitamin B12 Serum Folate RPR Titer Blood Type O POSITIVE Antibody Screen Negative 04/01/19 04/01/19 04/02/19 19:21 19:21 07:25 ESR Creatine Kinase 116 Troponin I < 0.02 C-Reactive Protein Lipase Cancelled Vitamin B12 372 Serum Folate 14 RPR Titer Nonreactive Blood Type Antibody Screen Active Medications Generic Name Dose Route Start Last Admin Trade Name Freq PRN Reason Stop Dose Admin Aspirin 325 mg 04/02/19 13:15 04/02/19 13:38 Ecotrin - PO 325 mg DAILY EUGENE Administration Atorvastatin Calcium 20 mg 04/02/19 22:00 Lipitor - PO HS EUGENE Donepezil HCl 10 mg 04/02/19 10:00 04/02/19 09:38 Aricept - PO 10 mg DAILY EUGENE Administration Enoxaparin Sodium 40 mg 04/02/19 10:04/02/19 09:37 Lovenox - SQ 40 mg DAILY EUGENE Administration Escitalopram Oxalate 20 mg 04/02/19 10:00 04/02/19 09:38 Lexapro - PO 20 mg DAILY EUGENE Administration Sodium Chloride 1,000 mls @ 42 mls/hr 04/01/19 12:30 04/02/19 13:38 Normal Saline - IV 42 mls/hr ASDIR EUGENE Administration Levothyroxine Sodium 100 mcg 04/02/19 07:00 04/02/19 05:59 Synthroid - PO 100 mcg ACBK EUGNEE Administration Losartan Potassium 100 mg 04/02/19 10:00 04/02/19 09:38 Cozaar - PO 100 mg DAILY EUGENE Administration Multivitamins/Minerals 1 each 04/02/19 10:00 04/02/19 09:37 Theragran-M PO 1 each DAILY EUGENE Administration ASSESSMENT/PLAN: ATTENDING PHYSICIAN STATEMENT I saw and evaluated the patient. I reviewed the resident's note and discussed the case with the resident. I agree with the resident's findings and plan as documented. SUBJECTIVE: OBJECTIVE: ASSESSMENT AND PLAN:
--- NOTE | 2019-04-02 15:36 | ECHO ---
Version: 1 Name: MOE PRICE Exam: Adult Echocardiogram Study Date: 04/02/2019, 2:19 PM Age: 83 Years MMode/2D Measurements & Calculations IVSd: 1.15 cm LVIDs: 2.28 cm LVIDd: 3.5 cm LVPWd: 0.93 cm ACS: 1.86 cm Ao root diam: 2.40 cm LVOT diam: 2.02 cm LA dimension: 4.0 cm Doppler Measurements & Calculations MV E max constantino: 67.1 cm/sec Med E/e': 11.5 MV A max constantino: 67.6 cm/sec Med Peak E' Constantino: 5.8 cm/sec MV E/A: 0.99 Lat E/e': 9.3 Lat Peak E' Constantino: 7.2 cm/sec MR max P.7 mmHg Ao max P.5 mmHg FELICITA(I,D): 2.8 cm Ao mean P.6 mmHg LV V1 mean: 73.2 cm/sec Ao V2 max: 117.3 cm/sec LV V1 mean P.44 mmHg AI P1/2t: 641.0 msec PI end-d constantino: 118.4 cm/sec TR max constantino: 219.2 cm/sec TR max P.8 mmHg Procedure A complete two-dimensional transthoracic echocardiogram was performed (2D, M-mode, Doppler and color flow Doppler). The patient was in normal sinus rhythm during the exam. Left Ventricle The left ventricle is normal in size. Left ventricular systolic function is normal. Ejection Fractio n = 60- 65%. No regional wall motion abnormalities noted. Right Ventricle The right ventricle is normal size. The right ventricular systolic function is normal. RV systolic T DI is 12 cm/s. Atria The left atrial size is normal. Right atrial size is normal. Mitral Valve The mitral valve is grossly normal. There is mild mitral regurgitation. Tricuspid Valve The tricuspid valve is normal in structure and function. There is mild tricuspid regurgitation. Pulm onary artery systolic pressure is at least 30 mmHg if RA pressure is assumed 3 mmHg. Aortic Valve The aortic valve is normal in structure and function. Mild aortic regurgitation. Pulmonic Valve The pulmonic valve is not well visualized. Mild pulmonic valvular regurgitation. Great Vessels The aortic root is normal size. Pericardium/Pleura There is no pericardial effusion. Summary Statements The left ventricle is normal in size. Left ventricular systolic function is normal. No regional wall motion abnormalities noted. Ejection Fraction = 60-65%. The right ventricular systolic function is normal. The left atrial size is normal. Right atrial size is normal. There is mild mitral regurgitation. There is mild tricuspid regurgitation. Pulmonary artery systolic pressure is at least 30 mmHg if RA pressure is assumed 3 mmHg Mild aortic regurgitation. Mild pulmonic valvular regurgitation. There is no pericardial effusion. Mike Fraire MD 04/02/2019, 3:35 PM Ordering Physician: Shannon Clemente Performed By: Leti Borden
--- NOTE | 2019-04-02 17:12 | DS ---
Physical Exam: SUBJECTIVE: Patient seen and examined. She denies weakness, headache, dizziness , chest pain, shortness of breath, abdominal pain, nausea, or vomiting. OBJECTIVE: Vital Signs Period Temp Pulse Resp BP Sys/Swanson Pulse Ox Last 24 Hr 97.8 F-98.7 F 59-72 18-20 121-155/53-74 96-99 PHYSICAL EXAM GENERAL: The patient is awake, alert, and oriented to person, in no acute distress. HEAD: Normal with no signs of trauma. EYES: PERRL, extraocular movements intact, conjunctiva clear. ENT: Ears normal, nares patent, moist mucous membranes. NECK: Trachea midline, full range of motion LUNGS: Clear to auscultation bilaterally HEART: Regular rate and rhythm, no murmur ABDOMEN: Soft, nontender, nondistended, normoactive bowel sounds EXTREMITIES: Warm, well-perfused, no edema. NEUROLOGICAL: Cranial nerves II through XII grossly intact. Extremities 5/5 strength. PSYCH: Normal mood, normal affect. SKIN: Warm, dry, normal turgor LABS Laboratory Results - last 24 hr 04/01/19 04/01/19 04/01/19 12:45 18:52 19:21 ESR 12 Creatine Kinase 116 Troponin I < 0.02 C-Reactive Protein < 0.3 Lipase Vitamin B12 Serum Folate RPR Titer 04/01/19 04/02/19 19:21 07:25 ESR Creatine Kinase Troponin I C-Reactive Protein Lipase Cancelled Vitamin B12 372 Serum Folate 14 RPR Titer Nonreactive HOSPITAL COURSE: Ms. Patterson is an 83y/o female with hypothyroidism and HTN who presents following dysarthria. It resolved but unsure how long it lasted. At baseline, pt has dementia. CT head and MRI brain showed no acute changes, just chronic microvascular changes. Carotid doppler showed atherosclerosis but no blockage. Echo showed normal EF with some MR and TR. No events noted on tele. CXR was clear. Troponins negative x2. RPR negative. B12 and folate normal. LDL 75. BUN slightly elevated 25. Pt was discharged home on atorvastatin 20mg and instructed to continue ASA 81mg. She is to f/u with PCP and neuro. Date of Admission:04/02/19 Date of Discharge: 04/02/19 Minutes to complete discharge: 35 Discharge Summary Problems reviewed: Yes Reason For Visit: SPEECH DISTURBANCE Current Active Problems Speech abnormality (Acute) Unsteady gait (Acute) Condition: Improved - Instructions Diet, Activity, Other Instructions: Hospital Visit: You were admitted to the hospital for monitoring after having difficulty speaking. Your symptoms resolved, and you are able to go home. Your MRI result was negative. Medications: Continue your home medications as directed. Start atorvastatin 20mg daily. Follow Up: Dr. Villa, primary care, in 1 week. You should have your kidney function checked. Dr. Richardson, neurology, in 1 week. Other Instructions: Call 911 or return to the emergency room if you have difficulty speaking or walking, have weakness on one side of your body, headache, and dizziness. Referrals: Salvador Richardson MD [Staff Physician] - 1 Week Reyes Villa MD [Staff Physician] - 1 Week Disposition: HOME - Home Medications Comprehensive Discharge Medication List: Ambulatory Orders Losartan/Hydrochlorothiazide [Hyzaar 100-12.5 Tablet] 1 each PO DAILY 11/23/18 Donepezil HCl 10 mg PO DAILY 11/24/18 Escitalopram Oxalate [Lexapro -] 20 tab PO DAILY 11/24/18 Aspirin 81 mg PO DAILY 04/01/19 Levothyroxine [Synthroid -] 100 mcg PO DAILY 04/01/19 Ocuvite Eye Plus Multi Tablet 1 tab PO DAILY 04/01/19 Atorvastatin Ca [Lipitor] 20 mg PO HS #30 tablet 04/02/19 This patient is new to me today: Yes Date on this admission: 04/02/19 Emergency Visit: Yes ED Registration Date: 04/02/19 Care time: The patient presented to the Emergency Department on the above date and was hospitalized for further evaluation of their emergent condition. Critical Care patient: No - Discharge Referral Referred to [facility] No ATTENDING PHYSICIAN STATEMENT I saw and evaluated the patient. I reviewed the resident's note and discussed the case with the resident. I agree with the resident's findings and plan as documented. SUBJECTIVE: OBJECTIVE: ASSESSMENT AND PLAN:
[2019-04-02 19:56] VITALS: BP 140/75; PULSE 66; TEMP 98
--- NOTE | 2019-04-02 20:14 | PN ---
Teaching Attending Note Name of Resident: Shannon Clemente ATTENDING PHYSICIAN STATEMENT I saw and evaluated the patient. I reviewed the resident's note and discussed the case with the resident. I agree with the resident's findings and plan as documented. SUBJECTIVE: Patient is lying in bed with no acute distress. daughters at bedside. OBJECTIVE: Vital Signs Temperature 98.0 F 04/02/19 19:30 Pulse Rate 66 04/02/19 19:30 Respiratory Rate 20 04/02/19 19:30 Blood Pressure 140/75 04/02/19 19:30 O2 Sat by Pulse Oximetry (%) 98 04/02/19 08:32 GENERAL: The patient is awake, alert, oriented , follows commands, in no acute distress. HEAD: Normal with no signs of trauma. EYES: PERRL, extraocular movements intact, conjunctiva clear. ENT: Ears normal, moist mucous membranes. NECK: Trachea midline, full range of motion LUNGS: Clear to auscultation bilaterally HEART: Regular rate and rhythm, no murmur ABDOMEN: Soft, nontender, nondistended, normoactive bowel sounds EXTREMITIES: Warm, well-perfused, no edema. NEUROLOGICAL: Cranial nerves II through XII grossly intact. Extremities 5/5 strength. PSYCH: Normal mood, normal affect. SKIN: Warm, dry, normal turgor CBCD WBC 5.5 K/mm3 (4.0-10.0) 04/01/19 12:45 RBC 3.73 M/mm3 (3.60-5.2) 04/01/19 12:45 Hgb 12.2 GM/dL (10.7-15.3) 04/01/19 12:45 Hct 35.9 % (32.4-45.2) 04/01/19 12:45 MCV 96.3 fl (80-96) H 04/01/19 12:45 MCHC 33.9 g/dl (32.0-36.0) 04/01/19 12:45 RDW 12.6 % (11.6-15.6) 04/01/19 12:45 Plt Count 220 K/MM3 (134-434) D 04/01/19 12:45 MPV 9.3 fl (7.5-11.1) 04/01/19 12:45 CMP Sodium 141 mmol/L (136-145) 04/01/19 12:32 Potassium 3.7 mmol/L (3.5-5.1) 04/01/19 12:32 Chloride 108 mmol/L (98-107) H 04/01/19 12:32 Carbon Dioxide 24 mmol/L (21-32) 04/01/19 12:32 Anion Gap 10 MMOL/L (8-16) 04/01/19 12:32 BUN 25.0 mg/dL (7-18) H 04/01/19 12:32 Creatinine 1.1 mg/dL (0.55-1.3) 04/01/19 12:32 Random Glucose 127 mg/dL (74-106) H 04/01/19 12:32 Calcium 9.1 mg/dL (8.5-10.1) 04/01/19 12:32 Total Bilirubin 0.4 mg/dL (0.2-1) 04/01/19 12:32 AST 20 U/L (15-37) 04/01/19 12:32 ALT 16 U/L (13-61) 04/01/19 12:32 Alkaline Phosphatase 72 U/L (45-117) 04/01/19 12:32 Total Protein 6.9 g/dl (6.4-8.2) 04/01/19 12:32 Albumin 3.6 g/dl (3.4-5.0) 04/01/19 12:32 CARDIAC ENZYMES Creatine Kinase 116 U/L (26-192) 04/01/19 19:21 Troponin I < 0.02 ng/ml (0.00-0.05) 04/01/19 19:21 Home Medications Medication Instructions Recorded Losartan/Hydrochlorothiazide 1 each PO DAILY 11/23/18 [Hyzaar 100-12.5 Tablet] Donepezil HCl 10 mg PO DAILY 11/24/18 Escitalopram Oxalate [Lexapro -] 20 tab PO DAILY 11/24/18 Aspirin 81 mg PO DAILY 04/01/19 Levothyroxine [Synthroid -] 100 mcg PO DAILY 04/01/19 Ocuvite Eye Plus Multi Tablet 1 tab PO DAILY 04/01/19 Atorvastatin Ca [Lipitor] 20 mg PO HS #30 tablet 04/02/19 ASSESSMENT AND PLAN: Patient is an 83y/of with PMhx of hypothyroidism and HTN who presents with dysarthria. # TIA r/o CVA, s/p MRA negative for stroke , will dc patient on aspirin and lipitor follow up with neuro as an outpatient, negative carotids #Htn stable continue home meds # hypothyroidism continue levoth #dementia continue aricept will dc home.
[2019-04-02] MEDS ORDERED: ATORVASTATIN CA 20 MG TABLET (FP) PO SCH (22:00)
== END 2019-04-02 19:59 | disposition home or self-care (01) ==
LOC: JER 11:43 → UNDOADMOB 15:59 → JERBED 15:59 → INTOOBSV 15:59 → JERBED 20:24 → J4W 20:24 → JERBED 04-02 10:23
PROVIDERS: ADMIT Internal Medicine; ATTEND Internal Medicine
PROC: 3E0337Z Introduction of Electrolytic and Water Balance Substance into Peripheral Vein, Percutaneous Approach (ICD-10-PCS; principal; 2019-04-02)
PROC: 3E013GC Introduction of Other Therapeutic Substance into Subcutaneous Tissue, Percutaneous Approach (ICD-10-PCS; 2019-04-02)
DX: R26.81 Unsteadiness on feet (principal); R47.81 Slurred speech; R00.1 Bradycardia, unspecified; I10 Essential (primary) hypertension; E03.9 Hypothyroidism, unspecified; G40.909 Epilepsy, unspecified, not intractable, without status epilepticus; F41.9 Anxiety disorder, unspecified; F32.9 Major depressive disorder, single episode, unspecified; F03.90 Unspecified dementia, unspecified severity, without behavioral disturbance, psychotic disturbance, mood disturbance, and anxiety; G93.89 Other specified disorders of brain
CPT/HCPCS: 36415; 70450-TC; 70551-TC; 71045-TC-FY; 80053; 80061; 81003; 82550; 82607; 82746; 83721; 84484; 85025; 85610; 85651; 85730; 86140; 86593; 86850; 86900; 86901; 93005; 93010; 93306-TC; 93880-TC; 96372; 99285-25; G0378; J7030